=== PATIENT | male | born 1935 | race Caucasian/White ===

== ENCOUNTER 2017-12-17 20:06 | Inpatient (IN) | payer MEDICARE ==
[2017-12-17] MEDS ORDERED: MORPHINE SULFATE 2 MG/ML SYRINGE IV STA (21:23)
[2017-12-17] MEDS ORDERED: SODIUM CHLORIDE 0.9% 500 ML IV STA (21:23)
--- NOTE | 2017-12-17 21:57 | ED ---
General Adult HPI - General Chief complaint: Recheck/Abnormal Lab/Rx Stated complaint: Weakness Time Seen by Provider: 12/17/17 21:13 Source: patient, EMS, RN notes reviewed, old records reviewed Mode of arrival: EMS Limitations: altered mental status - History of Present Illness Initial comments: 82-year-old presents for evaluation of diaphoresis. Patient reported that his friend thought he was more confused than usual and may be developing some dementia. Patient states that he did have some burning abdominal pain. Denies vomiting states he's had some nausea. No chest pain or shortness of breath. Patient appears quite anxious on initial evaluation. States his symptoms began while he was at rest. No exertional component to his diaphoresis or burning abdominal pain. Denies any focal weakness or numbness. Denies headache. Denies fever or chills. Patient is alert and oriented 3, however exact details about the history are difficult to obtain. - Related Data Home Medications Medication Instructions Recorded Confirmed Aspirin EC [Ecotrin] 325 mg PO DAILY 07/14/14 07/18/14 Atenolol [Tenormin] 50 mg PO DAILY 07/14/14 07/18/14 Nitroglycerin Sl Tabs [Nitrostat] 0.4 mg SUBLINGUAL Q5M PRN 07/14/14 07/18/14 Omeprazole [PriLOSEC] 20 mg PO HS 07/14/14 07/18/14 Previous Rx's Medication Instructions Recorded Atenolol [Tenormin] 50 mg PO DAILY tab 07/19/14 Atorvastatin [Lipitor] 40 mg PO DAILY #30 tab 07/19/14 Clopidogrel [Plavix] 75 mg PO DAILY #30 tab 07/19/14 Famotidine [Pepcid] 20 mg PO HS PRN #0 tab 07/19/14 Isosorbide Mononitrate ER [Imdur] 60 mg PO DAILY #30 tab.er.24h 07/19/14 Nitroglycerin Sl Tabs [Nitrostat] 0.4 mg SUBLINGUAL Q5M PRN #25 tab 07/19/14 Periostat 20 mg PO BID 07/19/14 Allergies Allergy/AdvReac Type Severity Reaction Status Date / Time No Known Allergies Allergy Verified 07/18/14 15:26 Review of Systems ROS Statement: Those systems with pertinent positive or pertinent negative responses have been documented in the HPI. ROS Other: All systems not noted in ROS Statement are negative. Past Medical History Past Medical History: Coronary Artery Disease (CAD), Chest Pain / Angina, Hyperlipidemia History of Any Multi-Drug Resistant Organisms: None Reported Past Surgical History: Coronary Bypass/CABG, Heart Catheterization, Tonsillectomy Additional Past Surgical History / Comment(s): CABG-QUADRUPLE HEART CATHRT CATARACT WITH LENS IMPLANT 2007 (TORIC-ACRYSOF) (2 stents placed last year?) Past Anesthesia/Blood Transfusion Reactions: No Reported Reaction Past Psychological History: Anxiety Smoking Status: Never smoker Past Alcohol Use History: None Reported Past Drug Use History: None Reported - Past Family History Brother(s) Family Medical History: Cancer Additional Family Medical History / Comment(s): THROAT CA General Exam Limitations: altered mental status General appearance: alert, in no apparent distress Head exam: Present: atraumatic, normocephalic Eye exam: Present: normal appearance, PERRL ENT exam: Present: mucous membranes dry Neck exam: Present: normal inspection. Absent: tenderness, meningismus Respiratory exam: Present: normal lung sounds bilaterally, respiratory distress Cardiovascular Exam: Present: regular rate, normal rhythm GI/Abdominal exam: Present: soft. Absent: distended, tenderness, guarding, rebound Extremities exam: Present: normal inspection, normal capillary refill. Absent: pedal edema Back exam: Present: normal inspection, full ROM Neurological exam: Present: alert, oriented X3. Absent: motor sensory deficit Psychiatric exam: Present: agitated, anxious Skin exam: Present: intact, normal color, diaphoretic. Absent: cyanosis Course Vital Signs 12/17/17 12/17/17 12/17/17 20:20 22:38 23:55 Temperature 97.8 F Pulse Rate 81 75 82 Respiratory 18 18 17 Rate Blood Pressure 177/81 199/91 190/86 O2 Sat by Pulse 96 96 97 Oximetry 12/18/17 01:31 Temperature 97.7 F Pulse Rate 83 Respiratory 18 Rate Blood Pressure 184/82 O2 Sat by Pulse 96 Oximetry EKG Findings - EKG Comments: EKG Findings:: EKG: Normal sinus rhythm, T-wave inversion in precordial leads, no ST segment elevation or depression, rate of 78, MN interval 132, QRS duration 80, QTC 458 Medical Decision Making - Medical Decision Making 82-year-old male presenting with abdominal pain, confusion. Patient is found to have distended bladder on CT, this is consistent with his presentation. He also has a 3.1 cm abdominal aortic aneurysm. Additional workup is negative. Laboratory studies unremarkable. Urinary catheter is placed, on reevaluation, patient is asymptomatic, feeling much better. He is alert and oriented 3. He is eager for discharge. - Lab Data Result diagrams: 12/17/17 21:44 12/17/17 21:44 Lab Results 12/17/17 12/17/17 12/17/17 Range/Units 21:44 21:44 21:44 WBC 10.1 (3.8-10.6) k/uL RBC 5.48 (4.30-5.90) m/uL Hgb 15.5 (13.0-17.5) gm/dL Hct 45.6 (39.0-53.0) % MCV 83.3 (80.0-100.0) fL MCH 28.3 (25.0-35.0) pg MCHC 34.0 (31.0-37.0) g/dL RDW 14.4 (11.5-15.5) % Plt Count 155 (150-450) k/uL Neutrophils % 78 % Lymphocytes % 12 % Monocytes % 8 % Eosinophils % 1 % Basophils % 0 % Neutrophils # 7.8 H (1.3-7.7) k/uL Lymphocytes # 1.2 (1.0-4.8) k/uL Monocytes # 0.8 (0-1.0) k/uL Eosinophils # 0.1 (0-0.7) k/uL Basophils # 0.0 (0-0.2) k/uL PT (9.0-12.0) sec INR (<1.2) APTT (22.0-30.0) sec Sodium 136 L (137-145) mmol/L Potassium 3.6 (3.5-5.1) mmol/L Chloride 105 (98-107) mmol/L Carbon Dioxide 20 L (22-30) mmol/L Anion Gap 11 mmol/L BUN 22 H (9-20) mg/dL Creatinine 0.90 (0.66-1.25) mg/dL Est GFR (CKD-EPI)AfAm >90 (>60 ml/min/1.73 sqM) Est GFR (CKD-EPI)NonAf 79 (>60 ml/min/1.73 sqM) Glucose 121 H (74-99) mg/dL Plasma Lactic Acid Irineo 1.9 (0.7-2.0) mmol/L Calcium 9.0 (8.4-10.2) mg/dL Total Bilirubin 0.7 (0.2-1.3) mg/dL AST 25 (17-59) U/L ALT 29 (21-72) U/L Alkaline Phosphatase 67 (38-126) U/L Troponin I (0.000-0.034) ng/mL NT-Pro-B Natriuret Pep pg/mL Total Protein 6.5 (6.3-8.2) g/dL Albumin 3.9 (3.5-5.0) g/dL Amylase <30 L (30-110) U/L Lipase 53 (23-300) U/L Urine Color Urine Appearance (Clear) Urine pH (5.0-8.0) Ur Specific [place] (1.001-1.035) Urine Protein (Negative) Urine Glucose (UA) (Negative) Urine Ketones (Negative) Urine Blood (Negative) Urine Nitrite (Negative) Urine Bilirubin (Negative) Urine Urobilinogen (<2.0) mg/dL Ur Leukocyte Esterase (Negative) Urine WBC (0-5) /hpf Ur Squamous Epith Cells (0-4) /hpf Urine Bacteria (None) /hpf Urine Mucus (None) /hpf 12/17/17 12/17/17 12/17/17 Range/Units 21:44 21:44 21:44 WBC (3.8-10.6) k/uL RBC (4.30-5.90) m/uL Hgb (13.0-17.5) gm/dL Hct (39.0-53.0) % MCV (80.0-100.0) fL MCH (25.0-35.0) pg MCHC (31.0-37.0) g/dL RDW (11.5-15.5) % Plt Count (150-450) k/uL Neutrophils % % Lymphocytes % % Monocytes % % Eosinophils % % Basophils % % Neutrophils # (1.3-7.7) k/uL Lymphocytes # (1.0-4.8) k/uL Monocytes # (0-1.0) k/uL Eosinophils # (0-0.7) k/uL Basophils # (0-0.2) k/uL PT 10.9 (9.0-12.0) sec INR 1.1 (<1.2) APTT 27.1 (22.0-30.0) sec Sodium (137-145) mmol/L Potassium (3.5-5.1) mmol/L Chloride (98-107) mmol/L Carbon Dioxide (22-30) mmol/L Anion Gap mmol/L BUN (9-20) mg/dL Creatinine (0.66-1.25) mg/dL Est GFR (CKD-EPI)AfAm (>60 ml/min/1.73 sqM) Est GFR (CKD-EPI)NonAf (>60 ml/min/1.73 sqM) Glucose (74-99) mg/dL Plasma Lactic Acid Irineo (0.7-2.0) mmol/L Calcium (8.4-10.2) mg/dL Total Bilirubin (0.2-1.3) mg/dL AST (17-59) U/L ALT (21-72) U/L Alkaline Phosphatase (38-126) U/L Troponin I <0.012 (0.000-0.034) ng/mL NT-Pro-B Natriuret Pep 653 pg/mL Total Protein (6.3-8.2) g/dL Albumin (3.5-5.0) g/dL Amylase (30-110) U/L Lipase (23-300) U/L Urine Color Urine Appearance (Clear) Urine pH (5.0-8.0) Ur Specific [place] (1.001-1.035) Urine Protein (Negative) Urine Glucose (UA) (Negative) Urine Ketones (Negative) Urine Blood (Negative) Urine Nitrite (Negative) Urine Bilirubin (Negative) Urine Urobilinogen (<2.0) mg/dL Ur Leukocyte Esterase (Negative) Urine WBC (0-5) /hpf Ur Squamous Epith Cells (0-4) /hpf Urine Bacteria (None) /hpf Urine Mucus (None) /hpf 12/17/17 Range/Units 22:00 WBC (3.8-10.6) k/uL RBC (4.30-5.90) m/uL Hgb (13.0-17.5) gm/dL Hct (39.0-53.0) % MCV (80.0-100.0) fL MCH (25.0-35.0) pg MCHC (31.0-37.0) g/dL RDW (11.5-15.5) % Plt Count (150-450) k/uL Neutrophils % % Lymphocytes % % Monocytes % % Eosinophils % % Basophils % % Neutrophils # (1.3-7.7) k/uL Lymphocytes # (1.0-4.8) k/uL Monocytes # (0-1.0) k/uL Eosinophils # (0-0.7) k/uL Basophils # (0-0.2) k/uL PT (9.0-12.0) sec INR (<1.2) APTT (22.0-30.0) sec Sodium (137-145) mmol/L Potassium (3.5-5.1) mmol/L Chloride (98-107) mmol/L Carbon Dioxide (22-30) mmol/L Anion Gap mmol/L BUN (9-20) mg/dL Creatinine (0.66-1.25) mg/dL Est GFR (CKD-EPI)AfAm (>60 ml/min/1.73 sqM) Est GFR (CKD-EPI)NonAf (>60 ml/min/1.73 sqM) Glucose (74-99) mg/dL Plasma Lactic Acid Irineo (0.7-2.0) mmol/L Calcium (8.4-10.2) mg/dL Total Bilirubin (0.2-1.3) mg/dL AST (17-59) U/L ALT (21-72) U/L Alkaline Phosphatase (38-126) U/L Troponin I (0.000-0.034) ng/mL NT-Pro-B Natriuret Pep pg/mL Total Protein (6.3-8.2) g/dL Albumin (3.5-5.0) g/dL Amylase (30-110) U/L Lipase (23-300) U/L Urine Color Light Yellow Urine Appearance Clear (Clear) Urine pH 7.5 (5.0-8.0) Ur Specific [place] 1.010 (1.001-1.035) Urine Protein Negative (Negative) Urine Glucose (UA) Negative (Negative) Urine Ketones Negative (Negative) Urine Blood Negative (Negative) Urine Nitrite Negative (Negative) Urine Bilirubin Negative (Negative) Urine Urobilinogen <2.0 (<2.0) mg/dL Ur Leukocyte Esterase Small H (Negative) Urine WBC 11 H (0-5) /hpf Ur Squamous Epith Cells <1 (0-4) /hpf Urine Bacteria Occasional H (None) /hpf Urine Mucus Rare H (None) /hpf Disposition Clinical Impression: Urinary retention Disposition: HOME SELF-CARE Condition: Fair Instructions: Urinary Retention in Men (ED) Is patient prescribed a controlled substance at d/c from ED?: No Referrals: Vicente Loomis MD [Primary Care Provider] - 1-2 days Daniel Dillon MD [STAFF PHYSICIAN] - 1-2 days Time of Disposition: 01:35
[2017-12-17 22:16] LABS: Appearance,Urine Clear (Clear); Bacteria,Urine Occasional /hpf; Bilirubin,Urine Negative (Negative); Blood,Urine Negative (Negative); Color,Urine Light Yellow; Glucose,Urine (UA) Negative (Negative); Ketones,Urine Negative (Negative); Leukocyte Esterase,Urine Small (Negative); Mucus,Urine Rare /hpf; Nitrite,Urine Negative (Negative); PH, Urine 7.5 (5.0-8.0); Protein,Urine Negative (Negative); Squamous Epithelial Cell,Urine <1 /hpf (0-4); Urobilinogen,Urine <2.0 mg/dL (<2.0); WBC,Urine 11 /hpf (0-5)
[2017-12-17 22:19] LABS: Basophils % (A) 0 %; Eosinophils # (A) 0.1 k/uL (0-0.7); Eosinophils % (A) 1 %; HCT 45.6 % (39.0-53.0); HGB 15.5 gm/dL (13.0-17.5); Lymphocytes # (A) 1.2 k/uL (1.0-4.8); Lymphocytes % (A) 12 %; MCH 28.3 pg (25.0-35.0); MCV 83.3 fL (80.0-100.0); Mean Platelet Volume 7.8; Monocytes # (A) 0.8 k/uL (0-1.0); Monocytes % (A) 8 %; Neutrophils # (A) 7.8 k/uL (1.3-7.7); Neutrophils % (A) 78 %; Platelet Count 155 k/uL (150-450); RBC 5.48 m/uL (4.30-5.90); RDW 14.4 % (11.5-15.5); WBC 10.1 k/uL (3.8-10.6)
[2017-12-17 22:26] LABS: INR 1.1 (<1.2); Partial Thromboplastin Time 27.1 sec (22.0-30.0); Prothrombin Time 10.9 sec (9.0-12.0)
[2017-12-17 22:27] LABS: ALT 29 U/L (21-72); AST 25 U/L (17-59); Albumin 3.9 g/dL (3.5-5.0); Alkaline Phosphatase 67 U/L (38-126); Amylase <30 U/L (30-110); Anion Gap 11 mmol/L; Blood Urea Nitrogen 22 mg/dL (9-20); Carbon Dioxide 20 mmol/L (22-30); Chloride 105 mmol/L (98-107); Glucose 121 mg/dL (74-99); Lipase 53 U/L (23-300); Potassium 3.6 mmol/L (3.5-5.1); Sodium 136 mmol/L (137-145); Total Bilirubin 0.7 mg/dL (0.2-1.3); Total Protein 6.5 g/dL (6.3-8.2)
--- NOTE | 2017-12-17 23:15 | XR ---
EXAMINATION TYPE: XR chest 2V DATE OF EXAM: 12/17/2017 COMPARISON: 07/06/2014 HISTORY: Altered mental status. Chest pain. TECHNIQUE: Frontal and lateral views of the chest are obtained. FINDINGS: There is coarse pulmonary interstitial density. There are sternal wires. There is no defin ite pleural effusion. Bony thorax is intact. Thoracic aorta shows mild atheromatous change. IMPRESSION: New pulmonary interstitial infiltrates compared to last exam. No pleural fluid is seen. This probably relates to pulmonary fibrosis. Acute heart failure is possible.
--- NOTE | 2017-12-17 23:16 | XR ---
EXAMINATION TYPE: XR KUB DATE OF EXAM: 12/17/2017 COMPARISON: NONE HISTORY: Altered mental status TECHNIQUE: 2 views FINDINGS: There is no sign of intestinal obstruction or pneumoperitoneum. Fecal pattern is normal. Th ere are no pathologic calcifications over the kidneys. IMPRESSION: Nonacute abdomen.
--- NOTE | 2017-12-17 23:46 | CT ---
EXAMINATION TYPE: CT brain wo con DATE OF EXAM: 12/17/2017 COMPARISON: 06/26/2011 HISTORY: Altered mental status. CT DLP: 2003 mGycm Automated exposure control for dose reduction was used. FINDINGS: There is cerebral cortical atrophy. There is no mass effect nor midline shift. There is no sign of in tracranial hemorrhage. There is some mild hypodensity in the white matter insula of temporal lobes. T here is mild hypodensity around the frontal horns of the lateral ventricles. This is more on the left side. Calvarium is intact. IMPRESSION: CEREBRAL ATROPHY AND CHRONIC PERIVENTRICULAR SMALL VESSEL ISCHEMIA. NO CHANGE COMPARED TO OLD EXAM.
--- NOTE | 2017-12-17 23:51 | CT ---
EXAMINATION TYPE: CT abdomen pelvis w con DATE OF EXAM: 12/17/2017 COMPARISON: HISTORY: Burning abdominal pain and nausea. Frequent urination. CT DLP: 1773 mGycm Automated exposure control for dose reduction was used. TECHNIQUE: Helical acquisition of images was performed from the lung bases through the pelvis. CONTRAST: Performed without Oral Contrast and with IV Contrast, patient injected with 100 mL of Isovue 300. FINDINGS: There is mild subsegmental atelectasis at the right posterior lung base. There is no pleural effusion . There is a large hiatal hernia. Heart is enlarged. Liver shows no focal defect. Gallbladder appears normal. Bile ducts are not dilated. Spleen and pancreas appear normal. There is no adrenal mass. There is 1 cm cortical cyst on the upper pole right kidney. There are anter ior and lateral renal bilateral cortical cysts that measure up to 3.5 cm. There is no hydronephrosis. Ureters are not dilated. Abdominal aorta is atheromatous. Abdominal aorta measures up to 3.1 cm. The re is no retroperitoneal adenopathy. There is no ascites. There is no sign of free air. I see no inte stinal wall thickening. There are no dilated loops. Bladder distends smoothly. There is no evidence o f pelvic mass. Appendix is not definitely seen. There is no sign of appendicitis. There is a few mill imeter anterior subluxation of L4 in relation L5. There is a few millimeter retrolisthesis of L3 rela te to L4. The posterior elements are intact. There is no compression fracture. IMPRESSION: ATHEROSCLEROTIC VASCULAR DISEASE. 3.1 CM MILD ANEURYSM OF THE LOWER ABDOMINAL AORTA. RENAL CORTICAL CYSTS. MILD FIBROSIS AND SUBSEGMENTAL ATELECTASIS AT THE RIGHT LUNG BASE. HIATAL HERNIA. LARGE URINARY BLADDER COULD RELATE TO BLADDER OUTLET OBSTRUCTION. MILD DEGENERATIVE SUBLUXATION IN THE LUMBAR SPINE ABOVE.
[2017-12-18] MEDS: ATENOLOL 50 MG TAB PO SCH (06:47)
[2017-12-18] MEDS: ISOSORBIDE MONONITRATE ER 60 MG TAB.ER.24H PO SCH (06:47)
[2017-12-18] MEDS ORDERED: LORazepam 1 MG TAB PO STA (08:06)
[2017-12-18] MEDS ORDERED: TAMSULOSIN 0.4 MG CAP.ER.24H PO STA (08:06)
[2017-12-18] MEDS: CLOPIDOGREL 75 MG TAB PO SCH (08:44)
--- NOTE | 2017-12-18 14:16 | ED ---
Medical Decision Making - Medical Decision Making Patient was situationally confused. Patient did not know why he was here how he got here and he stated he can't remember the last 2 days. I spoke with Dr. Loomis on a number of occasions and he agreed to admit the patient 23 hour with the help of social work to try to get the patient into a snf. - Lab Data Result diagrams: 12/17/17 21:44 12/17/17 21:44 Lab Results 12/17/17 12/17/17 12/17/17 Range/Units 21:44 21:44 21:44 WBC 10.1 (3.8-10.6) k/uL RBC 5.48 (4.30-5.90) m/uL Hgb 15.5 (13.0-17.5) gm/dL Hct 45.6 (39.0-53.0) % MCV 83.3 (80.0-100.0) fL MCH 28.3 (25.0-35.0) pg MCHC 34.0 (31.0-37.0) g/dL RDW 14.4 (11.5-15.5) % Plt Count 155 (150-450) k/uL Neutrophils % 78 % Lymphocytes % 12 % Monocytes % 8 % Eosinophils % 1 % Basophils % 0 % Neutrophils # 7.8 H (1.3-7.7) k/uL Lymphocytes # 1.2 (1.0-4.8) k/uL Monocytes # 0.8 (0-1.0) k/uL Eosinophils # 0.1 (0-0.7) k/uL Basophils # 0.0 (0-0.2) k/uL PT (9.0-12.0) sec INR (<1.2) APTT (22.0-30.0) sec Sodium 136 L (137-145) mmol/L Potassium 3.6 (3.5-5.1) mmol/L Chloride 105 (98-107) mmol/L Carbon Dioxide 20 L (22-30) mmol/L Anion Gap 11 mmol/L BUN 22 H (9-20) mg/dL Creatinine 0.90 (0.66-1.25) mg/dL Est GFR (CKD-EPI)AfAm >90 (>60 ml/min/1.73 sqM) Est GFR (CKD-EPI)NonAf 79 (>60 ml/min/1.73 sqM) Glucose 121 H (74-99) mg/dL Plasma Lactic Acid Irineo 1.9 (0.7-2.0) mmol/L Calcium 9.0 (8.4-10.2) mg/dL Total Bilirubin 0.7 (0.2-1.3) mg/dL AST 25 (17-59) U/L ALT 29 (21-72) U/L Alkaline Phosphatase 67 (38-126) U/L Troponin I (0.000-0.034) ng/mL NT-Pro-B Natriuret Pep pg/mL Total Protein 6.5 (6.3-8.2) g/dL Albumin 3.9 (3.5-5.0) g/dL Amylase <30 L (30-110) U/L Lipase 53 (23-300) U/L Urine Color Urine Appearance (Clear) Urine pH (5.0-8.0) Ur Specific [place] (1.001-1.035) Urine Protein (Negative) Urine Glucose (UA) (Negative) Urine Ketones (Negative) Urine Blood (Negative) Urine Nitrite (Negative) Urine Bilirubin (Negative) Urine Urobilinogen (<2.0) mg/dL Ur Leukocyte Esterase (Negative) Urine WBC (0-5) /hpf Ur Squamous Epith Cells (0-4) /hpf Urine Bacteria (None) /hpf Urine Mucus (None) /hpf 12/17/17 12/17/17 12/17/17 Range/Units 21:44 21:44 21:44 WBC (3.8-10.6) k/uL RBC (4.30-5.90) m/uL Hgb (13.0-17.5) gm/dL Hct (39.0-53.0) % MCV (80.0-100.0) fL MCH (25.0-35.0) pg MCHC (31.0-37.0) g/dL RDW (11.5-15.5) % Plt Count (150-450) k/uL Neutrophils % % Lymphocytes % % Monocytes % % Eosinophils % % Basophils % % Neutrophils # (1.3-7.7) k/uL Lymphocytes # (1.0-4.8) k/uL Monocytes # (0-1.0) k/uL Eosinophils # (0-0.7) k/uL Basophils # (0-0.2) k/uL PT 10.9 (9.0-12.0) sec INR 1.1 (<1.2) APTT 27.1 (22.0-30.0) sec Sodium (137-145) mmol/L Potassium (3.5-5.1) mmol/L Chloride (98-107) mmol/L Carbon Dioxide (22-30) mmol/L Anion Gap mmol/L BUN (9-20) mg/dL Creatinine (0.66-1.25) mg/dL Est GFR (CKD-EPI)AfAm (>60 ml/min/1.73 sqM) Est GFR (CKD-EPI)NonAf (>60 ml/min/1.73 sqM) Glucose (74-99) mg/dL Plasma Lactic Acid Irineo (0.7-2.0) mmol/L Calcium (8.4-10.2) mg/dL Total Bilirubin (0.2-1.3) mg/dL AST (17-59) U/L ALT (21-72) U/L Alkaline Phosphatase (38-126) U/L Troponin I <0.012 (0.000-0.034) ng/mL NT-Pro-B Natriuret Pep 653 pg/mL Total Protein (6.3-8.2) g/dL Albumin (3.5-5.0) g/dL Amylase (30-110) U/L Lipase (23-300) U/L Urine Color Urine Appearance (Clear) Urine pH (5.0-8.0) Ur Specific [place] (1.001-1.035) Urine Protein (Negative) Urine Glucose (UA) (Negative) Urine Ketones (Negative) Urine Blood (Negative) Urine Nitrite (Negative) Urine Bilirubin (Negative) Urine Urobilinogen (<2.0) mg/dL Ur Leukocyte Esterase (Negative) Urine WBC (0-5) /hpf Ur Squamous Epith Cells (0-4) /hpf Urine Bacteria (None) /hpf Urine Mucus (None) /hpf 12/17/17 Range/Units 22:00 WBC (3.8-10.6) k/uL RBC (4.30-5.90) m/uL Hgb (13.0-17.5) gm/dL Hct (39.0-53.0) % MCV (80.0-100.0) fL MCH (25.0-35.0) pg MCHC (31.0-37.0) g/dL RDW (11.5-15.5) % Plt Count (150-450) k/uL Neutrophils % % Lymphocytes % % Monocytes % % Eosinophils % % Basophils % % Neutrophils # (1.3-7.7) k/uL Lymphocytes # (1.0-4.8) k/uL Monocytes # (0-1.0) k/uL Eosinophils # (0-0.7) k/uL Basophils # (0-0.2) k/uL PT (9.0-12.0) sec INR (<1.2) APTT (22.0-30.0) sec Sodium (137-145) mmol/L Potassium (3.5-5.1) mmol/L Chloride (98-107) mmol/L Carbon Dioxide (22-30) mmol/L Anion Gap mmol/L BUN (9-20) mg/dL Creatinine (0.66-1.25) mg/dL Est GFR (CKD-EPI)AfAm (>60 ml/min/1.73 sqM) Est GFR (CKD-EPI)NonAf (>60 ml/min/1.73 sqM) Glucose (74-99) mg/dL Plasma Lactic Acid Irineo (0.7-2.0) mmol/L Calcium (8.4-10.2) mg/dL Total Bilirubin (0.2-1.3) mg/dL AST (17-59) U/L ALT (21-72) U/L Alkaline Phosphatase (38-126) U/L Troponin I (0.000-0.034) ng/mL NT-Pro-B Natriuret Pep pg/mL Total Protein (6.3-8.2) g/dL Albumin (3.5-5.0) g/dL Amylase (30-110) U/L Lipase (23-300) U/L Urine Color Light Yellow Urine Appearance Clear (Clear) Urine pH 7.5 (5.0-8.0) Ur Specific [place] 1.010 (1.001-1.035) Urine Protein Negative (Negative) Urine Glucose (UA) Negative (Negative) Urine Ketones Negative (Negative) Urine Blood Negative (Negative) Urine Nitrite Negative (Negative) Urine Bilirubin Negative (Negative) Urine Urobilinogen <2.0 (<2.0) mg/dL Ur Leukocyte Esterase Small H (Negative) Urine WBC 11 H (0-5) /hpf Ur Squamous Epith Cells <1 (0-4) /hpf Urine Bacteria Occasional H (None) /hpf Urine Mucus Rare H (None) /hpf Disposition Clinical Impression: Urinary retention, Altered mental status Disposition: ADMITTED IP TO THIS HOSP Condition: Fair Instructions: Urinary Retention in Men (ED) Referrals: Vicente Loomis MD [Primary Care Provider] - 1-2 days Daniel Dillon MD [STAFF PHYSICIAN] - 1-2 days Time of Disposition: 14:16
[2017-12-18] MEDS ORDERED: SODIUM CHLORIDE 0.9% 1,000 ML IV ONE (14:17)
[2017-12-18] MEDS: ATORVASTATIN 40 MG TAB PO SCH (16:32)
[2017-12-18] MEDS: LORazepam 1 MG TAB PO PRN (19:28)
[2017-12-18] MEDS: POTASSIUM CHLORIDE ER 20 MEQ TAB.ER PO SCH (19:29)
--- NOTE | 2017-12-18 22:15 | HP ---
HISTORY AND PHYSICAL ATTENDING PHYSICIAN: Dr. Kathryn Loomis. CHIEF COMPLAINT: Sweating. HISTORY OF PRESENT ILLNESS: This 83-year-old gentleman presents to the emergency room by ambulance in the middle of the night because he was sweating. The patient is evaluated in the emergency room with a CT scan of the brain, chest x-ray, KUB and then CT scan of the abdomen and pelvis. The patient was noted to have a distended abdomen. Patient had distended bladder. Cuellar catheter was placed and patient had 1000 mL of urine. The patient has a history of chronic anxiety, depression. The patient recently had been placed on Lexapro about a month now. The patient has also takes Ativan 1 mg in the morning and half at bedtime. He lives by himself. The patient had no other findings on clinical evaluation. The patient at times appeared mildly confused. The patient is oriented x3, though. The patient's nurse in the emergency room did not feel comfortable sending the patient home, as he lives by himself. Hospital bilingual social worker was involved to see if there were any arrangements that could be made for the patient to help with outpatient. The patient lives by himself. He has no family here. He has a brother apparently in [place]. The patient's neighbor who came by to the emergency room said the patient seems to be more confused lately. He initially used to call the neighbor occasionally for some help. Now he called him practically 10, 12 times a day. PAST MEDICAL HISTORY: Significant for coronary artery disease. The patient has had a previous CABG and stent placement, last one being in 2014. The patient had myocardial infarction. The patient has otherwise has history of hypertension, chronic anxiety, depression. No history of any lung disease, liver disease, kidney disease, ulcers, TB, hepatitis. No history of any rheumatic fever, myocardial infarction or CVA. The patient does have a previous history of BPH. He follows with the urologist. The patient was placed in on Ditropan for urinary frequency. This has been for a while. PAST SURGICAL HISTORY: Significant for CABG. FAMILY MEDICAL HISTORY: Father at the age of 60 of acute myocardial infarction. Mother at age of 79, pneumonia. The patient had a brother and 65 , history of carcinoma of the larynx, a brother, 78, with a history of diabetes mellitus, hypertension. The patient has no children. MEDICATIONS: At present include: 1. Ditropan XL 15 mg daily. 2. Metoprolol succinate 50 mg daily. 3. Ativan 1 mg in the morning, 0.5 mg in the evening. 4. Prilosec 20 mg daily. 5. Nitrostat sublingual p.r.n. 6. Lipitor 40 mg daily. 7. Aspirin 325 mg daily. SOCIAL HISTORY: Patient is single, never , lives by himself. REVIEW OF SYSTEMS: NEURO: Denies any headaches, dizziness. No double vision, blurred vision. No symptoms of TIA, syncope, seizures. PSYCH: Anxiety, history of depression, mild confusion, intermittent. CARDIAC: No chest pain, angina, palpitation. RESPIRATORY: No shortness of breath, cough, hemoptysis. GI: No nausea, vomiting, abdominal pain, diarrhea. : No symptoms of dysuria, hematuria. The patient apparently has some urinary retention with overflow. The patient had a Cuellar catheter placed in the emergency room without difficulty. EXTREMITIES: No pain. Mild chronic edema. CONSTITUTIONAL: No fever, chills. PHYSICAL EXAMINATION: Pleasant gentleman, at present in no distress. Vital signs revealed temperature recorded earlier was 97.7, pulse 83, respirations 18, blood pressure was 211/99. HEENT: Normocephalic. Neck: No JVD. Decreased range of motion of the neck. Pupils reactive. Nostrils are clear. Oral cavity is moist. Ears reveal no drainage. NECK: No JVD, carotid bruits or thyromegaly. CHEST: Clear to auscultation, percussion. CARDIAC: Normal S1, S2 with no gallop. Systolic murmur 2/6 left sternal border. ABDOMEN: Soft. Bowel sounds present. Extremities reveal trace edema. Neurologically awake, alert, oriented to place, person and time. Moves both upper and lower extremities adequately. The patient does exhibit mild confusion at times. He is more anxious. LABORATORY ASSESSMENT: Potassium of 3.6, sodium of 136, BUN of 22, creatinine 0.9. Negative troponin. Negative BNP. Urinalysis: 11 WBCs, occasional bacteria. CBC is normal. ASSESSMENT: 1. Mild cognitive impairment. 2. Acute on chronic urinary retention. 3. History of coronary artery disease. PLAN: The patient admitted for further observation. The patient is a placement issue and will ask the social workers to figure that out. MMODL / IJN: [id number] /
[2017-12-19] MEDS: ISOSORBIDE MONONITRATE ER 60 MG TAB.ER.24H PO SCH (08:16)
[2017-12-19] MEDS: POTASSIUM CHLORIDE ER 20 MEQ TAB.ER PO SCH ×2 (08:16→20:34)
[2017-12-19] MEDS: PANTOPRAZOLE 40 MG TABLET PO SCH (08:16)
[2017-12-19] MEDS: ATORVASTATIN 40 MG TAB PO SCH (08:17)
[2017-12-19] MEDS: METOPROLOL SUCCINATE (ER) 50 MG TAB.ER.24H PO SCH (08:17)
[2017-12-19] MEDS: CLOPIDOGREL 75 MG TAB PO SCH (08:17)
[2017-12-19] MEDS: ATENOLOL 50 MG TAB PO SCH (08:17)
[2017-12-19] MEDS: ESCITALOPRAM 10 MG TAB PO SCH (08:17)
[2017-12-19] MEDS: LORazepam 1 MG TAB PO PRN ×2 (08:21→20:34)
[2017-12-19 09:52] LABS: Anion Gap 6 mmol/L; Blood Urea Nitrogen 14 mg/dL (9-20); Calcium 8.3 mg/dL (8.4-10.2); Carbon Dioxide 25 mmol/L (22-30); Chloride 107 mmol/L (98-107); Glucose 142 mg/dL (74-99); Sodium 138 mmol/L (137-145)
[2017-12-19 09:58] LABS: Potassium 3.8 mmol/L (3.5-5.1)
[2017-12-19 10:02] VITALS: BMI 29.2
--- NOTE | 2017-12-19 18:46 | PN ---
PROGRESS NOTE CHIEF COMPLAINT: Re-evaluation. HISTORY OF PRESENT ILLNESS: This 82-year-old gentleman came to the emergency room yesterday because of not feeling well, and his neighbor had suggested that he might be having dementia. The patient also complained in the emergency room that he was having diaphoresis. On evaluation in the emergency room, the conclusion was that the patient had urinary retention; no other findings were noted. The patient, however, was somewhat unsafe to stay by himself at home; unsteady and weak. The patient was admitted to the hospital for observation in view of this. He is actually upset this morning that none of his friends or anybody has been informed. After discussion with him that we have no contact numbers for any of his friends or family, he settled down, the patient realizing that it was true that we did not have any contact numbers. The patient did call his brother. The patient himself has no children. The patient's brother lives in [place], and I did talk to him and explained to him what the conditions here were; that it was more of a social problem; patient is not able to live by himself. The social workers are trying to work things out. Meanwhile, the patient continues with Cuellar catheter care. REVIEW OF SYSTEMS: NEURO: Denies any headaches, dizziness. PSYCH: Chronic anxiety and depression. CARDIAC: Denies chest pain, angina, palpitations. RESPIRATORY: Denies shortness of breath, cough, hemoptysis. GI: No nausea, vomiting, abdominal pain, diarrhea. : Has an IDC. EXTREMITIES: No pain. CONSTITUTIONAL: No fever, chills. PHYSICAL EXAMINATION: Elderly gentleman, 82 years of age, at present in no distress. Vital signs reveal temperature 99.3, pulse 90, respirations 14, blood pressure 177/84, pulse ox 93% on room air. HEENT: Normocephalic. NECK: No JVD. CHEST: Clear to auscultation and percussion. CARDIAC: Normal S1, S2 with no gallops, murmurs. ABDOMEN: Soft. Bowel sounds normal. No organomegaly. No abdominal bruits. Extremities reveal no edema. NEUROLOGIC: Awake, alert, oriented to place, person and time. Intermittent confusion with someone inappropriate statements. Moves both upper and lower extremities adequately. Neurologically otherwise intact. LABORATORY ASSESSMENT: Repeat electrolytes which are normal. BUN and creatinine were normal. Urine culture is in progress. ASSESSMENT: 1. Generalized weakness and debility. 2. Elevated blood pressure. 3. History of coronary artery disease. 4. Urinary retention; suspect chronic. PLAN: The patient at present is stable. We are working on placement on therapy. It is possible the patient may require an institutionalized setting, as he is not able at present to take care of his needs. MMODL / IJN: [id number] /
[2017-12-19] MEDS: ACETAMINOPHEN TAB 325 MG TAB PO PRN (20:34)
[2017-12-20] MEDS: LORazepam 1 MG TAB PO PRN ×2 (07:35→21:49)
[2017-12-20] MEDS: PANTOPRAZOLE 40 MG TABLET PO SCH (07:36)
[2017-12-20] MEDS: ESCITALOPRAM 10 MG TAB PO SCH (07:36)
[2017-12-20] MEDS: METOPROLOL SUCCINATE (ER) 50 MG TAB.ER.24H PO SCH (07:36)
[2017-12-20] MEDS: ISOSORBIDE MONONITRATE ER 60 MG TAB.ER.24H PO SCH (07:36)
[2017-12-20] MEDS: CLOPIDOGREL 75 MG TAB PO SCH (07:36)
[2017-12-20] MEDS: ATENOLOL 50 MG TAB PO SCH (07:36)
[2017-12-20] MEDS: POTASSIUM CHLORIDE ER 20 MEQ TAB.ER PO SCH (07:36)
[2017-12-20] MEDS: ATORVASTATIN 40 MG TAB PO SCH (07:36)
[2017-12-20] MEDS: LISINOPRIL 10 MG TAB PO SCH (12:42)
[2017-12-20] MEDS: TAMSULOSIN 0.4 MG CAP.ER.24H PO SCH (17:30)
[2017-12-20] MEDS: ACETAMINOPHEN TAB 325 MG TAB PO PRN (21:49)
--- NOTE | 2017-12-21 00:05 | PN ---
PROGRESS NOTE ATTENDING PHYSICIAN: Dr. Kathryn Loomis. CHIEF COMPLAINT: Re-evaluation. HISTORY OF PRESENT ILLNESS: An 82-year-old gentleman who appears in no distress. He is much calmer and not confused. He was able to sit up in bed and from the bed with minimal assistance, get off the bed. The patient had no dizziness. He ambulated about 70 feet without any shortness of breath and without difficulty with using a walker. The patient still has a Cuellar catheter. The patient lives alone. He is recommended discharge today. He wants to stay in, as he has not been able to make any arrangements for food, etc. He is contacting his friends to see if they can help out, bring food in and then subsequently take him home tomorrow. Patient's condition discussed with the patient. REVIEW OF SYSTEMS: NEURO: Denies any headaches, dizziness. PSYCH: Chronic anxiety, depression, improved. CARDIAC: No chest pain, angina, palpitation. RESPIRATORY: No shortness of breath, cough, hemoptysis. GI: No nausea, vomiting, abdominal pain, diarrhea. : Has IDC with no symptoms. EXTREMITIES: No pain, edema. CONSTITUTIONAL: No fever, chills. PHYSICAL EXAMINATION: Pleasant gentleman in no distress. Vital signs reveal temperature 98.4, pulse 83, respirations 20, blood pressure 161/81, pulse ox 95% on room air. HEENT: Normocephalic. NECK: No JVD. CHEST: Clear to auscultation, percussion. CARDIAC: Normal S1, S2 with no gallops or murmurs. ABDOMEN: Soft. No palpable masses. Bowel sounds normal. No organomegaly. No abdominal bruits. Extremities reveal no edema. Good pulses, both upper lower extremities. Neurologically, awake, alert, oriented x3 with well-coordinated movements. LABORATORY ASSESSMENT: None new. ASSESSMENT: 1. Acute urinary retention. 2. History of benign prostatic hypertrophy. 3. Coronary artery disease, stable. 4. Hypertension with mildly elevated blood pressure. 5. Acute urinary retention. PLAN: The patient is stable, improved. Continue present medical regimen. Plan is for patient to be discharged home. Apparently, no social media marketing manager is available today. The patient has been recommended to make arrangements to stock up foot at home for the next few days until Meals on Wheels can be started. The patient meanwhile will have a continued Cuellar catheter. The IV fluid has been discontinued. The patient be continued on tamsulosin. The patient's prognosis remains guarded. The patient recommended to discontinue the Cuellar catheter on Friday. The patient's prognosis guarded. MMODL / IJN: [id number] /
[2017-12-21] MEDS: PANTOPRAZOLE 40 MG TABLET PO SCH (08:01)
[2017-12-21] MEDS: LORazepam 1 MG TAB PO PRN ×2 (08:01→20:13)
[2017-12-21] MEDS: ATORVASTATIN 40 MG TAB PO SCH (08:01)
[2017-12-21] MEDS: CLOPIDOGREL 75 MG TAB PO SCH (08:01)
[2017-12-21] MEDS: ESCITALOPRAM 10 MG TAB PO SCH (08:01)
[2017-12-21] MEDS: ISOSORBIDE MONONITRATE ER 60 MG TAB.ER.24H PO SCH (08:02)
[2017-12-21] MEDS: LISINOPRIL 10 MG TAB PO SCH (08:02)
[2017-12-21] MEDS: SULFAMETHOX-TMP 800-160MG 1 EACH TAB PO SCH ×2 (12:10→20:13)
[2017-12-21] MEDS: TAMSULOSIN 0.4 MG CAP.ER.24H PO SCH (18:00)
--- NOTE | 2017-12-21 18:54 | P.CN ---
Psychiatric Consult - . Consult date: 12/21/17 Consult:: 12/21/17 18:35 IDENTIFYING DATA: A 82-year-old male patient HPI: Patient admitted to the medical floor [facility] with he states not feeling well at home after having done some yard work. He says that he called 911. Psychiatry was counseled regarding anxiety and depression. He was admitted with acute on chronic urinary retention. He says his mood has been doing okay most of the time he says that he used to see treatment through [facility] social worker aide. He has most recently been on Lexapro which was started he states a couple of months ago. PAST PSYCHIATRIC HISTORY: He was in treatment At social worker aide in the past. He just started Lexapro a couple of months ago as currently on 10 mg daily. He says the Lexapro was used for anxiety he says he had 1 panic attack before. He never had any psychiatric hospitalizations. He is currently on ativan prn. PMH: Coronary artery disease, CA, hypertension, BPH, CABG and stent ALLERGIES: No known ALLERGIES MEDICATIONS: Tylenol when necessary, Lipitor, Plavix, Lexapro, Imdur, Zestril, Ativan when necessary, Protonix, Flomax, Bactrim DS CHEMICAL DEPENDENCY HISTORY: Denies FAMILY PSYCHIATRIC HISTORY: None known at this time FAMILY CHEMICAL DEPENDENCY HISTORY: None known at this time SOCIAL HISTORY: Currently lives by himself in the house. Says he has quite a few friends and is active socially. He was once and . He does not have any children. He used to work in sales. MENTAL STATUS EXAM: He is alert and cooperative with the interview. Speech is fluent, not rapid or pressured. Thought processes are organized. He is hard of hearing. He is oriented to place and month, day of the week. He states the date is the 15th or 16th. He denies any thoughts of harm to self or others. He does not show any agitation. I do not see any evidence of active psychosis. IMPRESSIONS: Unspecified anxiety disorder; rule out unspecified depressive disorder PLAN: Maintain Lexapro as current. He is also on Ativan as needed for anxiety. We'll provide with outpatient follow-up referral sheet for him to reinitiate some outpatient counseling which he seems agreeable to. I do not see any criteria for inpatient psychiatric hospitalization.
--- NOTE | 2017-12-22 00:39 | PN ---
PROGRESS NOTE ATTENDING PHYSICIAN: Dr. Kathryn Loomis CHIEF COMPLAINT: Re-evaluation. HISTORY OF PRESENT ILLNESS: 82-year-old gentleman was admitted to the hospital because he lives alone and he was complaining of weakness and inability to urinate. The patient had no evidence of any sepsis or any significant findings. The patient yesterday was able to get out of the bed by himself with a walker. He walked around safely. Today he says he cannot walk and cannot get out of the bed. The patient says he feels weak. He does not want to go home. The patient has been admitted under observation. He does have a urine culture positive, but no evidence of sepsis. The patient had urinary retention, probably secondary to use of oxybutynin as well as BPH and possibly accentuated by the urinary tract infection. REVIEW OF SYSTEMS: Neuro: No headaches, dizziness. Psych: Chronic anxiety. Depression. Cardiac: No chest pain. Respiratory: No shortness of breath. GI no nausea, vomiting. Good appetite. No abdominal pain. No diarrhea. no symptoms of dysuria or hematuria. Has IDC flowing well. EXTREMITIES: No pain. Complains of weakness. Constitutional: No fever, chills. PHYSICAL EXAMINATION: Pleasant gentleman in no distress. VITAL SIGNS: Temperature 98.4, pulse 83, respirations 20, blood pressure 161/80. The patient has been afebrile since admission. HEENT: Normocephalic. Neck no JVD. CHEST: Clear to auscultation. Cardiac: Normal S1, S2 with no gallops or murmurs. ABDOMEN: Soft. Bowel sounds present. EXTREMITIES: No edema. Good pulses both upper and lower extremities. Patient able to move his extremities in bed without difficulty. LABORATORY ASSESSMENT: Urine culture positive for E coli resistant to Cipro. Sensitive to Bactrim. Blood cultures no growth. ASSESSMENT: 1. Lower urinary tract infection. 2. Urinary retention. 3. Weakness. 4. Coronary artery disease, stable. 5. Anxiety. 6. Depression. PLAN: The patient is stable. Continue present medical regimen. Patient has refused to go home. Sign Erector as well at work on him tomorrow. Will convert him to inpatient since his observation time is over. The patient is going to require placement. MMODL / IJN: [id number] /
--- NOTE | 2017-12-22 08:19 | P.DS ---
Providers Date of admission: 12/18/17 14:17 Attending physician: Vicente Loomis Consults: 12/18/17 17:42 Consult Physician Routine Consulting Provider: Zainab Nails Consult Reason/Comments: anxiety depression Do you want consulting provider notified?: Yes, Notify in am Primary care physician: Vicente Loomis [facility] Course: This 82-year-old gentleman presented to the emergency room via ambulance because he was wearing and worrying about what his neighbor told him that he was having symptoms of dementia. Patient quite anxious in the emergency room evaluation including a CAT scan of the brain and abdomen and pelvis revealed he had a distended urinary bladder. Cuellar catheter placed urine analysis unremarkable. The patient vitals and stable electrolytes normal except for sodium 135 and potassium 3.6. This was corrected easily. Patient given hydration. Patient said he could not get up and go and the nursing staff in the emergency room were uncomfortable sending him home. He did not meet criteria for hospitalization. He was admitted to the hospital so the social workers could work with his discharge. The patient lives by himself. The neighbor feels overburdened by patient's numerous calls to them everyday. The patient the day following admission did walk without any difficulty. He used a walker. However yesterday he refused to get out of bed saying that he could not get up or get outdoor walk. The patient refuses physical therapy. He said he did not want to go home. The patient does have anxiety depression. He is on medical therapy. He was seen by psychiatry. Urine culture did come back showing E. coli which has been placed on Bactrim. No evidence of sepsis. Patient's Cuellar catheter was placed for urinary retention. Patient had been started on Flomax. He had been placed on oxybutynin by the urologist on the outpatient about a year ago. This has been discontinued. Urinary retention probably related to oxybutynin, urinary tract infection and BPH. Patient this morning did get out of bed and sit in a chair declined walking. He was stable to stand up and transfer to the chair. Patient needs to be discharged to facility for continuation of care. Final diagnosis to include 1. Urinary tract infection number 2. Urinary retention suspect acute on chronic 3. BPH 4. Anxiety depression 5. Stable coronary artery disease 6. Hypertension Patient Condition at Discharge: Fair Plan - Discharge Summary Discharge Rx Participant: No New Discharge Prescriptions: New Acetaminophen Tab [Tylenol] 650 mg PO Q6HR PRN tab PRN Reason: Fever and/ or MILD Pain Escitalopram [Lexapro] 10 mg PO DAILY tab Lisinopril [Zestril] 10 mg PO DAILY #30 tab Tamsulosin [Flomax] 0.4 mg PO PC-SUPPER #90 cap.er.24h Sulfamethox-Tmp 800-160Mg [Bactrim DS 800-160 mg] 1 tab PO Q12HR #14 tab Continue Nitroglycerin Sl Tabs [Nitrostat] 0.4 mg SUBLINGUAL Q5M PRN PRN Reason: Chest Pain Omeprazole [PriLOSEC] 20 mg PO DAILY Aspirin EC [Ecotrin] 325 mg PO DAILY Atorvastatin [Lipitor] 40 mg PO DAILY #30 tab LORazepam [Ativan] 1 mg PO BID PRN PRN Reason: Anxiety Metoprolol Succinate [Toprol Xl] 50 mg PO DAILY Discontinued Oxybutynin ER [Ditropan Xl] 15 mg PO DAILY Discharge Medication List Aspirin EC [Ecotrin] 325 mg PO DAILY 07/14/14 [History] Nitroglycerin Sl Tabs [Nitrostat] 0.4 mg SUBLINGUAL Q5M PRN 07/14/14 [History] Omeprazole [PriLOSEC] 20 mg PO DAILY 07/14/14 [History] Atorvastatin [Lipitor] 40 mg PO DAILY #30 tab 07/19/14 [Rx] LORazepam [Ativan] 1 mg PO BID PRN 12/18/17 [History] Metoprolol Succinate [Toprol Xl] 50 mg PO DAILY 12/18/17 [History] Acetaminophen Tab [Tylenol] 650 mg PO Q6HR PRN tab 12/21/17 [Rx] Escitalopram [Lexapro] 10 mg PO DAILY tab 12/21/17 [Rx] Lisinopril [Zestril] 10 mg PO DAILY #30 tab 12/21/17 [Rx] Sulfamethox-Tmp 800-160Mg [Bactrim DS 800-160 mg] 1 tab PO Q12HR #14 tab [Rx] Tamsulosin [Flomax] 0.4 mg PO PC-SUPPER #90 cap.er.24h 12/21/17 [Rx] Follow up Appointment(s)/Referral(s): Vicente Loomis MD [Primary Care Provider] - 1-2 days Daniel Dillon MD [STAFF PHYSICIAN] - 1-2 days [facility] Visiting Nurse, [NON-STAFF] - 1-2 Days Patient Instructions/Handouts: Urinary Retention in Men (ED) Activity/Diet/Wound Care/Special Instructions: [facility] to help with finding medicine aide services for in the home , contact [phone] Meals on Wheels to help with food, contact them at [phone].
[2017-12-22] MEDS: SULFAMETHOX-TMP 800-160MG 1 EACH TAB PO SCH ×2 (08:33→20:53)
[2017-12-22] MEDS: PANTOPRAZOLE 40 MG TABLET PO SCH (08:33)
[2017-12-22] MEDS: ESCITALOPRAM 10 MG TAB PO SCH (08:33)
[2017-12-22] MEDS: LISINOPRIL 10 MG TAB PO SCH (08:33)
[2017-12-22] MEDS: CLOPIDOGREL 75 MG TAB PO SCH (08:33)
[2017-12-22] MEDS: ISOSORBIDE MONONITRATE ER 60 MG TAB.ER.24H PO SCH (08:33)
[2017-12-22] MEDS: ATORVASTATIN 40 MG TAB PO SCH (08:33)
[2017-12-22] MEDS: LORazepam 1 MG TAB PO PRN ×2 (08:37→20:53)
[2017-12-22] MEDS: TAMSULOSIN 0.4 MG CAP.ER.24H PO SCH (18:24)
[2017-12-22] MEDS ORDERED: LORazepam 1 MG TAB PO STA (21:39)
[2017-12-23] MEDS: LORazepam 1 MG TAB PO PRN ×2 (08:09→20:08)
[2017-12-23] MEDS: CLOPIDOGREL 75 MG TAB PO SCH (08:38)
[2017-12-23] MEDS: PANTOPRAZOLE 40 MG TABLET PO SCH (08:38)
[2017-12-23] MEDS: ATORVASTATIN 40 MG TAB PO SCH (08:38)
[2017-12-23] MEDS: ESCITALOPRAM 10 MG TAB PO SCH (08:38)
[2017-12-23] MEDS: METOPROLOL SUCCINATE (ER) 50 MG TAB.ER.24H PO SCH (08:39)
[2017-12-23] MEDS: ISOSORBIDE MONONITRATE ER 60 MG TAB.ER.24H PO SCH (08:39)
[2017-12-23] MEDS: LISINOPRIL 10 MG TAB PO SCH (08:39)
[2017-12-23] MEDS: SULFAMETHOX-TMP 800-160MG 1 EACH TAB PO SCH ×2 (08:40→20:07)
--- NOTE | 2017-12-23 10:47 | PN ---
PROGRESS NOTE CHIEF COMPLAINT: Re-evaluation. HISTORY OF PRESENT ILLNESS: This is an 82-year-old gentleman who was admitted to the hospital because of inability to take care of himself. The patient has urinary retention for which he had a Cuellar catheter placed. The patient also has subsequently a urine culture which has shown E coli. The patient is on Bactrim. The patient has chronic anxiety, depression. The patient is on treatment for the same. Has been seen by the psychiatrist. The patient yesterday totally refused to get out of bed saying that he was too weak today. Upon recommendation, he did get out of bed and transferred himself to a chair and sat down saying that he would go for a walk later, but did not want to walk at the time. REVIEW OF SYSTEMS: NEURO: Denies any headaches, dizziness. PSYCH: Anxiety. CARDIAC: No chest pain, angina, palpitation. RESPIRATORY: Denies shortness of breath, cough, hemoptysis. GI: No nausea, vomiting, abdominal pain, diarrhea. : No symptoms of dysuria, hematuria. Has IDC. EXTREMITIES: No pain, edema. CONSTITUTIONAL: No fever, chills. PHYSICAL EXAMINATION: Pleasant gentleman at present in no distress. Vital signs reveal temperature 97.3, pulse 93, respirations 18, blood pressure 153/87, pulse ox of 97% on room air. HEENT: Normocephalic. NECK: Supple. No JVD. CHEST: Clear to auscultation and percussion. CARDIAC: Normal S1, S2 with no gallops. Systolic murmur 2/6 left sternal border. ABDOMEN: Soft. Bowel sounds present. EXTREMITIES: Trace edema. NEUROLOGICAL: Awake, alert, oriented with well-coordinated movements. LABORATORY ASSESSMENT: None new. ASSESSMENT: 1. Urinary tract infection. 2. Anxiety depression. 3. Stable coronary artery disease. PLAN: The patient is stable. Continue present medical regimen. Patient's prognosis is guarded. Patient is awaiting placement, will await placement. MMODL / IJN: [id number] /
[2017-12-23] MEDS: TAMSULOSIN 0.4 MG CAP.ER.24H PO SCH (18:42)
[2017-12-24 06:00] VITALS: BP 158/79; PULSE 83; RESP 16; TEMP 98
--- NOTE | 2017-12-24 06:57 | PN ---
PROGRESS NOTE DATE OF SERVICE: 12/23/2017 CHIEF COMPLAINT: Re-evaluation. HISTORY OF PRESENT ILLNESS: This 82-year-old gentleman is admitted to the hospital because of inability to take care of himself at home. The patient had urinary retention, which apparently is resolved. The patient also had a urinary tract infection for which he is on antibiotics. The patient has chronic anxiety and depression. He has been seen by Psych. The patient is awaiting transfer to nursing facility. REVIEW OF SYSTEMS: NEURO: Denies any headaches, dizziness. PSYCH: Chronic anxiety. CARDIAC: No chest pain or angina or palpitation. RESPIRATORY: No shortness of breath, cough, hemoptysis. GI: No nausea, vomiting, abdominal pain, diarrhea. : No symptoms of dysuria or hematuria. EXTREMITIES: No pain or edema. CONSTITUTIONAL: No fever or chills. Complains of generalized weakness. PHYSICAL EXAM: An 82-year-old gentleman at present in no distress. Vital signs revealed temperature 97.2, pulse 104, respirations 20, blood pressure 135/84, pulse ox of 94% on room air. HEENT: Normocephalic. NECK: No JVD. CHEST: Clear to auscultation and percussion. CARDIAC: Normal S1, S2 with no gallops or murmurs. ABDOMEN: Soft. Bowel sounds present. Extremities reveal no edema. No tenderness. Neurologically: Awake, alert, oriented with well-coordinated movements. LABORATORY ASSESSMENT: None new. ASSESSMENT: 1. Urinary tract infection. 2. Urinary retention, resolved. 3. Anxiety. 4. Depression. 5. Stable coronary artery disease. PLAN: The patient is stable. Continue present medical regimen. Patient's condition discussed with the patient. Prognosis is guarded. The patient plan for transfer to nursing facility as soon as a bed is available. MMODL / IJN: [id number] /
[2017-12-24] MEDS: CLOPIDOGREL 75 MG TAB PO SCH (09:04)
[2017-12-24] MEDS: ATORVASTATIN 40 MG TAB PO SCH (09:04)
[2017-12-24] MEDS: PANTOPRAZOLE 40 MG TABLET PO SCH (09:04)
[2017-12-24] MEDS: ESCITALOPRAM 10 MG TAB PO SCH (09:05)
[2017-12-24] MEDS: SULFAMETHOX-TMP 800-160MG 1 EACH TAB PO SCH (09:05)
[2017-12-24] MEDS: METOPROLOL SUCCINATE (ER) 50 MG TAB.ER.24H PO SCH (09:05)
[2017-12-24] MEDS: ISOSORBIDE MONONITRATE ER 60 MG TAB.ER.24H PO SCH (09:05)
[2017-12-24] MEDS: LISINOPRIL 10 MG TAB PO SCH (09:05)
[2017-12-24] MEDS: LORazepam 1 MG TAB PO PRN (12:21)
--- NOTE | 2017-12-25 06:31 | PN ---
PROGRESS NOTE DATE OF SERVICE: 12/24/2017 CHIEF COMPLAINT: Re-evaluation. HISTORY OF PRESENT ILLNESS: This is an 82-year-old gentleman who was admitted to the hospital because of inability to live by himself. The patient also had a urinary tract infection as well as urinary retention. His urinary retention has resolved. The patient has been on Bactrim for his urinary tract infection. The patient has underlying chronic anxiety and depression. His mood is better. The patient feels he is ready to get out of the hospital. The patient is planned for transfer to nursing facility. REVIEW OF SYSTEMS: NEURO: Denies any headaches, dizziness. PSYCH: Chronic anxiety. CARDIAC: No chest pain, angina or palpitation. RESPIRATORY: No shortness of breath, cough. GI: No nausea, vomiting, abdominal pain, diarrhea. : No symptoms of dysuria or hematuria. EXTREMITIES: Denies pain. CONSTITUTIONAL: No fever or chills. PHYSICAL EXAMINATION: Pleasant gentleman in no distress. Vital signs reveal temperature 98, pulse 83, respirations 16, blood pressure 158/79, pulse ox 97% on room air. HEENT: Normocephalic. NECK: No JVD. CHEST: Clear to auscultation. CARDIAC: Normal S1, S2 with no gallops or murmurs. ABDOMEN: Soft. Bowel sounds present. EXTREMITIES: No edema. No tenderness. NEUROLOGICALLY: Awake, alert, oriented with well-coordinated movements. LABORATORY ASSESSMENT: None new. ASSESSMENT: 1. Urinary tract infection. 2. Status post urinary retention. 3. Chronic anxiety, depression. PLAN: The patient is stable and is planned for transfer to nursing facility for rehab. MMODL / ANSELMON: [id number] /
== END 2017-12-24 13:32 | DRG 690 ==
LOC: EC 20:06 → 4MS4W 12-18 14:17 → OBSVTOIN 12-18 14:17 → INTOOBSV 12-18 14:17 → 4MS4W 12-18 14:59 → OBSVTOIN 12-21 13:41
PROVIDERS: ADMIT Internal Medicine; ATTEND Internal Medicine
DX: N39.0 Urinary tract infection, site not specified (principal); N40.1 Benign prostatic hyperplasia with lower urinary tract symptoms; R33.8 Other retention of urine; I25.10 Atherosclerotic heart disease of native coronary artery without angina pectoris; I10 Essential (primary) hypertension; F41.9 Anxiety disorder, unspecified; B96.20 Unspecified Escherichia coli [E. coli] as the cause of diseases classified elsewhere; R53.81 Other malaise; Z60.2 Problems related to living alone; E78.5 Hyperlipidemia, unspecified; G31.84 Mild cognitive impairment of uncertain or unknown etiology; I71.4 Abdominal aortic aneurysm, without rupture; I25.2 Old myocardial infarction; Z95.1 Presence of aortocoronary bypass graft; Z95.5 Presence of coronary angioplasty implant and graft; Z79.02 Long term (current) use of antithrombotics/antiplatelets; Z79.899 Other long term (current) drug therapy; Z79.82 Long term (current) use of aspirin; Z80.8 Family history of malignant neoplasm of other organs or systems; Z82.49 Family history of ischemic heart disease and other diseases of the circulatory system; Z83.3 Family history of diabetes mellitus
CPT/HCPCS: 36415; 51702; 51798; 70450; 71046; 74018; 74177; 80048; 80053; 81001; 82150; 83605; 83690; 83880; 84484; 85025; 85610; 85730; 87040; 87077; 87086; 87186; 93005; 96361; 96374; 99285

== ENCOUNTER 2019-01-16 12:38 | Emergency (ER) | payer MEDICARE ==
[2019-01-16 12:47] VITALS: RESP 18; TEMP 98
[2019-01-16] MEDS ORDERED: ACETAMINOPHEN TAB 500 MG TAB PO STA (13:09)
--- NOTE | 2019-01-16 13:15 | ED ---
General Adult HPI - General Stated complaint: Back Pain Source: patient, EMS, RN notes reviewed Mode of arrival: ambulatory Limitations: no limitations - History of Present Illness Initial comments: Chief complaint and history of present illness this is a 3-year-old male here with complaint of low back pain getting progressively worse over the past week. Patient thinks he may have injured it while lifting his garage door multiple times per day. He denies any direct injury no falls. Denies numbness or tingling to his lower extremities. Denies any change in bowel habits. No other complaints. - Related Data Home Medications Medication Instructions Recorded Confirmed Aspirin EC [Ecotrin] 325 mg PO DAILY 07/14/14 12/18/17 Nitroglycerin Sl Tabs [Nitrostat] 0.4 mg SUBLINGUAL Q5M PRN 07/14/14 12/18/17 Omeprazole [PriLOSEC] 20 mg PO DAILY 07/14/14 12/18/17 LORazepam [Ativan] 1 mg PO BID PRN 12/18/17 12/18/17 Metoprolol Succinate [Toprol Xl] 50 mg PO DAILY 12/18/17 12/18/17 Previous Rx's Medication Instructions Recorded Atorvastatin [Lipitor] 40 mg PO DAILY #30 tab 07/19/14 Acetaminophen Tab [Tylenol] 650 mg PO Q6HR PRN tab 12/21/17 Escitalopram [Lexapro] 10 mg PO DAILY tab 12/21/17 Lisinopril [Zestril] 10 mg PO DAILY #30 tab 12/21/17 Sulfamethox-Tmp 800-160Mg [Bactrim 1 tab PO Q12HR #14 tab 12/21/17 DS 800-160 mg] Tamsulosin [Flomax] 0.4 mg PO PC-SUPPER #90 cap.er.24h 12/21/17 Allergies Allergy/AdvReac Type Severity Reaction Status Date / Time No Known Allergies Allergy Verified 01/16/19 12:47 Review of Systems ROS Statement: Those systems with pertinent positive or pertinent negative responses have been documented in the HPI. Review of systems. Patient denies any headache reports his visual acuity is slightly changing over the past year denies chest pain shortness breath GI/ problems he has chronic low back discomfort worse of late. He reports one year ago had a urinary tract infection and was placed in rehab for 5 weeks. During that same time he had back exercises which helped a great deal. Since then he states is very active uses a walker to get around. But does have to open his own garage door which may be increasing risk for pain. The patient wears depends. All systems reviewed. Patient's past history significant for coronary artery disease with heart catheterization surgeries also include tonsillectomy is out of control bypass. Other problems include GERD, hyperlipidemia hypertension and hemorrhoids. Family history no expiratory. Patient denies any ALLERGIES. Nonsmoker nondrinker. ROS Other: All systems not noted in ROS Statement are negative. Past Medical History Past Medical History: Coronary Artery Disease (CAD), Chest Pain / Angina, GERD/Reflux, Hyperlipidemia, Hypertension Additional Past Medical History / Comment(s): hemorrhoids History of Any Multi-Drug Resistant Organisms: None Reported Past Surgical History: Coronary Bypass/CABG, Heart Catheterization, Heart Catheterization With Stent, Tonsillectomy Additional Past Surgical History / Comment(s): CABG-QUADRUPLE 1997, 2007 HEART CATH, 07-19-17 heart cath w/ angioplsty/stents. CATARACT WITH LENS IMPLANT 2007 (TORIC-ACRYSOF) .colonoscopy Past Anesthesia/Blood Transfusion Reactions: No Reported Reaction Additional Past Anesthesia/Blood Transfusion Reaction / Comment(s): pt stated he received blood in past-no reaction to it. Date of Last Stent Placement:: 2014 Past Psychological History: Anxiety Smoking Status: Former smoker Past Alcohol Use History: None Reported Past Drug Use History: None Reported - Past Family History Mother Family Medical History: Pneumonia Additional Family Medical History / Comment(s): from pne Father Family Medical History: Pneumonia Additional Family Medical History / Comment(s): from pne Brother(s) Family Medical History: Cancer Additional Family Medical History / Comment(s): THROAT CA General Exam - General Exam Comments Initial Comments: General: The patient is awake and alert, patient presents emergency room because of low back pain getting progressively worse over the past 3 days. Patient denies any injury no numbness or tingling to the lower extremities. Patient's vital signs shows temperature 98.0 pulse 66 respiratory rate 18 pulse ox 97% room air blood pressure 160/74. Eye: Pupils are equal, round and reactive to light, extra-ocular movements are intact; there is normal conjunctiva bilaterally. No signs of icterus. She states she has had cataract surgery. Ears, nose, mouth and throat: There are moist mucous membranes and no oral lesions. Neck: The neck is supple, there is no tenderness, no anterior cervical lymphadenopathy. Cardiovascular: A regular rate and rhythm, no murmur appreciated. Respiratory: Lungs are clear to auscultation, respirations are non-labored, breath sounds are equal. No wheezes, stridor, rales, or rhonchi. Gastrointestinal: Soft, non-distended, non-tender abdomen without masses or organomegaly noted. No pulsatile mass, no bruit appreciated. There is no rebound or guarding present. No CVA tenderness. Bowel sounds are unremarkable. Back: Patient complains of low-back pain to the lumbar region. No evidence of any rash. Early shingles was discussed. No weakness to his legs. Neurovascular status lower extremities intact. Musculoskeletal: Normal ROM, no tenderness, minimal pedal edema. Bilateral femoral pulses appreciated. There is no calf tenderness or swelling. Sensation intact. Pulses equal bilaterally 2+. Neurological: No neuro deficits Skin: Skin is warm and dry and no rashes. Psychiatric: Cooperative, appropriate mood & affect, normal judgment. Limitations: no limitations Course Vital Signs 01/16/19 12:42 Temperature 98.0 F Pulse Rate 66 Respiratory 18 Rate Blood Pressure 160/74 O2 Sat by Pulse 97 Oximetry Medical Decision Making - Medical Decision Making Medical decision making; this is a 3-year-old male with a complaint of lumbar area pain for the past 3 days. He thinks is because of lifting his garage door several times a day. Patient denies any difficulties with urinating. Radiation of pain does not go down the legs. No numbness no tingling. The patient's x-ray of the lumbosacral spine was done and reviewed by the radiologist. His impression is multilevel moderate to severe degenerative disc disease with grade 1 anterolisthesis L4 and L5. Suspected bilateral foraminal encroachment at L4-L5 and L5-S1. Recommend follow-up MRI. He is to atherosclerotic calcification of the aorta. Findings suggest aortic aneurysm measuring approximately 3.7 cm correlate clinically. As read by Dr. Gill I discussed with the patient these findings. He states he understands. He states that he has recently been on ibuprofen because of some dental work he had done but he preferred Tylenol which worked better. While in emergency room the patient received 1 g of Tylenol by mouth. The plans for the patient to be di scharged home. He states he is able to ambulate with the use of his walker. He states he has friends that look in on him daily. We did discuss the possibility of admission and was unable to ambulate and needs help but states he is able to manage at home as he is right now. Patient was advised to call follow up with his family physician. Suggested the patient have a follow-up CAT scan or MRI of the lumbar sacral spine and further evaluation of the aorta as suggested by the radiologist. Currently at this time there is no suggestion of aortic dissection. Patient will be sent home by wheelchair van which she accepts. States he has friends at home and help, they have left the house open for him. Advised as to how to take Tylenol and/or combination of Tylenol and ibuprofen for discomfort. He again states he is feeling better after having received 1 g of Tylenol in emergency room. Disposition Clinical Impression: Acute lumbosacral myofascial strain Disposition: HOME SELF-CARE Condition: Fair Instructions (If sedation given, give patient instructions): Nonruptured Abdominal Aortic Aneurysm (DC), Acute Low Back Pain (ED) Additional Instructions: Use Tylenol, 500 mg one every 4-6 hours for pain. Ice pack to the lumbar spine as needed. All follow-up family doctor concerning an MRI of the lumbar spine to rule out disc disease. Return to emergency room if you are unable to release her urine or unable to ambulate. Also follow-up with family doctor concerning nonruptured abdominal aortic aneurysm measuring 3.7 cm. Is patient prescribed a controlled substance at d/c from ED?: No Referrals: Vicente Loomis MD [Primary Care Provider] - 1-2 days Time of Disposition: 14:06
--- NOTE | 2019-01-16 13:39 | XR ---
EXAM TYPE: LUMBAR SPINE X RAY SERIES COMPARISON: NONE HISTORY: Pain TECHNIQUE: 4 views are submitted. FINDINGS: Alignment is anatomic. The pedicles are intact. The transverse processes are intact. There is mult ilevel moderate degenerative disc disease with severe facet arthropathy L4-5 and L5-S1 with. Diffuse osteopenia noted. Grade 1 anterolisthesis L4 on L5. Vascular calcifications of the aorta with suspicion for 3.7 cm estimated abdominal aortic aneurysm IMPRESSION: 1. Multilevel moderate to severe degenerative disc disease with grade 1 anterolisthesis L4 on L5.. S uspect bilateral foraminal encroachment at L4-5 and L5-S1. Recommend follow-up MRI. 2. Atherosclerotic calcifications of the aorta. Findings suggest aortic aneurysm measuring approximat jovanna 3.7 cm. Correlate clinically.
[2019-01-16 15:26] VITALS: BP 118/74; PULSE 68
== END 2019-01-16 15:27 | disposition home or self-care (01) ==
LOC: EC 12:38
DX: S39.012A Strain of muscle, fascia and tendon of lower back, initial encounter (principal); M51.36 Other intervertebral disc degeneration, lumbar region; M43.16 Spondylolisthesis, lumbar region; I70.0 Atherosclerosis of aorta; I25.119 Atherosclerotic heart disease of native coronary artery with unspecified angina pectoris; I10 Essential (primary) hypertension; K21.9 Gastro-esophageal reflux disease without esophagitis; Z87.891 Personal history of nicotine dependence; Z79.82 Long term (current) use of aspirin; Z79.899 Other long term (current) drug therapy; Z95.1 Presence of aortocoronary bypass graft; Z95.5 Presence of coronary angioplasty implant and graft; Z97.3 Presence of spectacles and contact lenses; X58.XXXA Exposure to other specified factors, initial encounter
CPT/HCPCS: 72110; 99284

== ENCOUNTER 2019-01-18 13:37 | Inpatient (IN) | payer MEDICARE ==
[2019-01-18 15:33] LABS: Basophils % (A) 0 %; Eosinophils # (A) 0.1 k/uL (0-0.7); Eosinophils % (A) 1 %; HCT 43.4 % (39.0-53.0); HGB 14.4 gm/dL (13.0-17.5); Lymphocytes % (A) 13 %; MCH 29.5 pg (25.0-35.0); MCHC 33.2 g/dL (31.0-37.0); MCV 88.8 fL (80.0-100.0); Mean Platelet Volume 7.8; Monocytes # (A) 0.4 k/uL (0-1.0); Monocytes % (A) 5 %; Neutrophils # (A) 5.7 k/uL (1.3-7.7); Neutrophils % (A) 78 %; Platelet Count 131 k/uL (150-450); RBC 4.89 m/uL (4.30-5.90); RDW 14.7 % (11.5-15.5); WBC 7.4 k/uL (3.8-10.6)
[2019-01-18 15:41] LABS: ALT 19 U/L (21-72); AST 19 U/L (17-59); African American GFR (CKD) >90 (>60 ml/min/1.73 sqM); Albumin 3.8 g/dL (3.5-5.0); Alkaline Phosphatase 52 U/L (38-126); Anion Gap 8 mmol/L; Blood Urea Nitrogen 16 mg/dL (9-20); Calcium 8.7 mg/dL (8.4-10.2); Carbon Dioxide 24 mmol/L (22-30); Chloride 106 mmol/L (98-107); Glucose 93 mg/dL (74-99); Potassium 3.8 mmol/L (3.5-5.1); Sodium 138 mmol/L (137-145); Total Bilirubin 0.8 mg/dL (0.2-1.3); Total Protein 6.5 g/dL (6.3-8.2)
--- NOTE | 2019-01-18 15:48 | ED ---
Back Pain HPI - General Source: patient, EMS, RN notes reviewed Limitations: no limitations <Randall Perez - Last Filed: 01/18/19 17:23> <Andrey Elliott - Last Filed: 01/18/19 18:02> - General Chief Complaint: Back Pain/Injury Stated Complaint: Back Pain Time Seen by Provider: 01/18/19 14:40 - History of Present Illness Initial Comments: 83-year-old male presents emergency department for recheck of back pain. Patient had visit on Friday in the ER and states that he was diagnosed with a strain. Patient states that he got the point where he could not get out of bed he was helped by family members and with walker but unable to successfully ambulate. Patient states that he has had some issues with his back in the past but states that they're amended this point. Patient states that he is also had issues with urinary tract infections and confusion in the past. Patient went to abdominal pain no bowel incontinence. Patient states he has some urinary issues with hold his urine but this is known to his urologist. Patient was seen and had x-rays in the ER which showed degenerative disc patient was advised take Tylenol but states that his been taken 2 extra strength with no relief of symptoms. (Randall Perez) - Related Data Home Medications Medication Instructions Recorded Confirmed Omeprazole [PriLOSEC] 20 mg PO DAILY 07/14/14 01/18/19 Metoprolol Succinate [Toprol Xl] 50 mg PO DAILY 12/18/17 01/18/19 Ibuprofen [Motrin] 600 mg PO Q6HR PRN 01/16/19 01/18/19 LORazepam [Ativan] 1 mg PO BID PRN 01/16/19 01/18/19 Oxybutynin Chloride [Oxybutynin 15 mg PO DAILY 01/16/19 01/18/19 Chloride ER] Previous Rx's Medication Instructions Recorded Atorvastatin [Lipitor] 40 mg PO DAILY #30 tab 07/19/14 Escitalopram [Lexapro] 10 mg PO DAILY tab 12/21/17 Tamsulosin [Flomax] 0.4 mg PO PC-SUPPER #90 cap.er.24h 12/21/17 Allergies Allergy/AdvReac Type Severity Reaction Status Date / Time No Known Allergies Allergy Verified 01/18/19 13:47 Review of Systems ROS Other: All systems not noted in ROS Statement are negative. <Randall Perez - Last Filed: 01/18/19 17:23> ROS Other: All systems not noted in ROS Statement are negative. <Andrey Elliott - Last Filed: 01/18/19 18:02> ROS Statement: Those systems with pertinent positive or pertinent negative responses have been documented in the HPI. Past Medical History Past Medical History: Coronary Artery Disease (CAD), Chest Pain / Angina, GERD/Reflux, Hyperlipidemia, Hypertension Additional Past Medical History / Comment(s): hemorrhoids History of Any Multi-Drug Resistant Organisms: None Reported Past Surgical History: Coronary Bypass/CABG, Heart Catheterization, Heart Catheterization With Stent, Tonsillectomy Additional Past Surgical History / Comment(s): CABG-QUADRUPLE 1997, 2007 HEART CATH, 07-19-17 heart cath w/ angioplsty/stents. CATARACT WITH LENS IMPLANT 2007 (TORIC-ACRYSOF) .colonoscopy Past Anesthesia/Blood Transfusion Reactions: No Reported Reaction Additional Past Anesthesia/Blood Transfusion Reaction / Comment(s): pt stated he received blood in past-no reaction to it. Date of Last Stent Placement:: 2014 Past Psychological History: Anxiety Smoking Status: Former smoker Past Alcohol Use History: None Reported Past Drug Use History: None Reported - Past Family History Mother Family Medical History: Pneumonia Additional Family Medical History / Comment(s): from pne Father Family Medical History: Pneumonia Additional Family Medical History / Comment(s): from pne Brother(s) Family Medical History: Cancer Additional Family Medical History / Comment(s): THROAT CA <Randall Perez - Last Filed: 01/18/19 17:23> General Exam Limitations: no limitations General appearance: alert, in no apparent distress Head exam: Present: atraumatic, normocephalic, normal inspection Neck exam: Present: normal inspection. Absent: tenderness, meningismus, lymphadenopathy Respiratory exam: Present: normal lung sounds bilaterally. Absent: respiratory distress, wheezes, rales, rhonchi, stridor Cardiovascular Exam: Present: regular rate, normal rhythm, normal heart sounds. Absent: systolic murmur, diastolic murmur, rubs, gallop, clicks GI/Abdominal exam: Present: soft, normal bowel sounds. Absent: distended, tenderness, guarding, rebound, rigid Extremities exam: Present: normal inspection, full ROM, normal capillary refill, other (Laboratory pulses equal bilaterally). Absent: tenderness, pedal edema, joint swelling, calf tenderness Back exam: Present: tenderness, paraspinal tenderness. Absent: full ROM (Decreased range of motion secondary pain), vertebral tenderness Skin exam: Present: warm, dry, intact, normal color. Absent: rash <Randall Perez - Last Filed: 01/18/19 17:23> Course <Andrey Elliott - Last Filed: 01/18/19 18:02> Vital Signs 01/18/19 01/18/19 01/18/19 13:45 15:15 17:00 Temperature 97.4 F L Pulse Rate 71 73 79 Respiratory 18 18 18 Rate Blood Pressure 170/76 167/73 180/87 O2 Sat by Pulse 94 L 97 96 Oximetry - Reevaluation(s) Reevaluation #1: 01/18/19 18:02 Case was discussed with practitioner Randall. Chart and results reviewed. Case was also discussed with Dr. Jaramillo, covering for Dr. Loomis, who will admit. (Andrey Elliott) Medical Decision Making - Lab Data Result diagrams: 01/18/19 15:17 01/18/19 15:17 <Randall Perez - Last Filed: 01/18/19 17:23> - Lab Data Result diagrams: 01/18/19 15:17 01/18/19 15:17 <Andrey Elliott - Last Filed: 01/18/19 18:02> - Medical Decision Making 83-year-old male present emergency department for low back pain. Patient having extreme difficulty ambulate in. Patient was also had some confusion and their concern about possible UTI. Patient has evidence of urinary tract infection. Patient's had sepsis in the past related cyst. Patient we given Rocephin. Patient be admitted for evaluation by orthopedics. (Randall Perez) - Lab Data Lab Results 01/18/19 01/18/19 01/18/19 Range/Units 15:17 15:17 15:17 WBC 7.4 (3.8-10.6) k/uL RBC 4.89 (4.30-5.90) m/uL Hgb 14.4 (13.0-17.5) gm/dL Hct 43.4 (39.0-53.0) % MCV 88.8 (80.0-100.0) fL MCH 29.5 (25.0-35.0) pg MCHC 33.2 (31.0-37.0) g/dL RDW 14.7 (11.5-15.5) % Plt Count 131 L (150-450) k/uL Neutrophils % 78 % Lymphocytes % 13 % Monocytes % 5 % Eosinophils % 1 % Basophils % 0 % Neutrophils # 5.7 (1.3-7.7) k/uL Lymphocytes # 1.0 (1.0-4.8) k/uL Monocytes # 0.4 (0-1.0) k/uL Eosinophils # 0.1 (0-0.7) k/uL Basophils # 0.0 (0-0.2) k/uL Sodium 138 (137-145) mmol/L Potassium 3.8 (3.5-5.1) mmol/L Chloride 106 (98-107) mmol/L Carbon Dioxide 24 (22-30) mmol/L Anion Gap 8 mmol/L BUN 16 (9-20) mg/dL Creatinine 0.75 (0.66-1.25) mg/dL Est GFR (CKD-EPI)AfAm >90 (>60 ml/min/1.73 sqM) Est GFR (CKD-EPI)NonAf 85 (>60 ml/min/1.73 sqM) Glucose 93 (74-99) mg/dL Calcium 8.7 (8.4-10.2) mg/dL Total Bilirubin 0.8 (0.2-1.3) mg/dL AST 19 (17-59) U/L ALT 19 L (21-72) U/L Alkaline Phosphatase 52 (38-126) U/L Total Protein 6.5 (6.3-8.2) g/dL Albumin 3.8 (3.5-5.0) g/dL Urine Color Yellow Urine Appearance Cloudy (Clear) Urine pH 5.5 (5.0-8.0) Ur Specific [place] 1.027 (1.001-1.035) Urine Protein Trace H (Negative) Urine Glucose (UA) Negative (Negative) Urine Ketones 2+ H (Negative) Urine Blood Trace H (Negative) Urine Nitrite Negative (Negative) Urine Bilirubin Negative (Negative) Urine Urobilinogen <2.0 (<2.0) mg/dL Ur Leukocyte Esterase Large H (Negative) Urine RBC 3 (0-5) /hpf Urine WBC 60 H (0-5) /hpf Urine WBC Clumps Moderate H (None) /hpf Urine Bacteria Many H (None) /hpf Urine Mucus Occasional H (None) /hpf Disposition <Randall Perez - Last Filed: 01/18/19 17:23> <Andrey Elliott - Last Filed: 01/18/19 18:02> Clinical Impression: Lumbar back pain, Unable to ambulate, UTI (urinary tract infection) Disposition: ADMITTED IP TO THIS HOSP Condition: Fair Referrals: Vicente Loomis MD [Primary Care Provider] - 1-2 days
[2019-01-18 16:32] LABS: Appearance,Urine Cloudy (Clear); Bacteria,Urine Many /hpf; Bilirubin,Urine Negative (Negative); Blood,Urine Trace (Negative); Color,Urine Yellow; Glucose,Urine (UA) Negative (Negative); Ketones,Urine 2+ (Negative); Leukocyte Esterase,Urine Large (Negative); Mucus,Urine Occasional /hpf; Nitrite,Urine Negative (Negative); PH, Urine 5.5 (5.0-8.0); Protein,Urine Trace (Negative); RBC,Urine 3 /hpf (0-5); Specific Gravity,Urine 1.027 (1.001-1.035); Urobilinogen,Urine <2.0 mg/dL (<2.0)
--- NOTE | 2019-01-18 16:36 | CT ---
EXAMINATION TYPE: CT lumbar spine wo con DATE OF EXAM: 01/18/2019 3:48 PM COMPARISON: X-ray lumbar spine dated 01/16/2019 HISTORY: Unable to ambulate CT DLP: 994.5 mGycm Automated exposure control for dose reduction was used. Unenhanced CT of the lumbar spine was performed. Bone and soft tissue window settings are submitted as well as coronal and sagittal reconstructions. No acute fracture. Grade 1 anterolisthesis of L4 and L5 from severe degenerative facet changes. Pedicles are intact. Posterior elements are intact. Moderate sized hiatal hernia. Prevertebral and paravertebral soft tissues appear within normal limits . Large anterior left renal cyst measuring up to 3.8 cm. Diffuse calcification of the infrarenal abdominal aorta. L1-L2: Normal disc space height. No disc herniation protrusion or central stenosis. No facet joint arthropathy. No evidence for foraminal encroachment. L2-L3: Vacuum disc phenomenon and diffuse disc bulge causing mild spinal canal stenosis and bilateral neural foraminal narrowing. L3-L4: Vacuum disc innominate and the inferior endplate of L3 osteolytic process likely degenerative, but infectious is not excluded. Moderate right and severe left neural foraminal stenosis. Mild spinal canal stenosis. L4-L5: Grade 1 anterolisthesis with unroofing of the disc and diffuse disc bulge, degenerative facet arthropathy and ligamentum flavum hypertrophy contributing to moderate spinal canal stenosis and azra re bilateral neural foraminal stenosis. L5-S1: Diffuse disc bulge and facet arthropathy causing moderate bilateral neural foraminal stenosis, greater on the left. IMPRESSION: Grade 1 anterolisthesis of L4 and L5 causing moderate spinal canal stenosis and severe bilateral neur al foraminal stenosis. Inferior endplate L3 lytic lesion process thought to be related to degenerative changes, but infectio us process is not excluded. Moderate size hiatal hernia. Left renal cyst.
[2019-01-18] MEDS ORDERED: ONDANSETRON 4 MG/2 ML VIAL IVP PRN (17:25)
[2019-01-18] MEDS ORDERED: NALOXONE 0.4 MG/ML 1 ML VIAL IV PRN (17:25)
[2019-01-18] MEDS ORDERED: cefTRIAXone IN SWFI 1,000 MG/10 ML SYRINGE IVP STA (17:25)
[2019-01-18] MEDS ORDERED: MORPHINE SULFATE 4 MG/ML SYRINGE IV PRN (17:25)
[2019-01-18 22:28] VITALS: BMI 27.1
--- NOTE | 2019-01-18 22:37 | P.HPIM ---
History of Present Illness H&P Date: 01/18/19 Chief Complaint: Low back pain and inability to ambulate due to pain 83-year-old male with history of chronic low back pain, CAD status post CABG, hypertension Patient presented to the hospital due to low back pain. He reports pain started 4 weeks ago described it as sharp pain over his lower back nonradiating 8 out of 10 in severity gets worse when he tries to ambulate or get up, when he lays down on either of his sides pain will radiate to his buttock on that side. Pain has been getting worse over the past 4 weeks this morning he was unable to get out of bed without using the walker which she normally is able to do take a few steps and then get to the walker but today he wasn't able to get out of the bed and had to use the walker to help support him however he noticed a lot of difficulties walking which she normally reports he would be able to walk around and as the day goes the pain will ease however today the pain was discontinued and worse for which she decided come to the hospital after he wasn't able to get to his PCP office. He reports that on Friday he came to the ED where x-rays were done and then he was released home. Patient reports no saddle numbness or tingling no weakness in bilateral lower extremities no numbness and tingling in bilateral lower extremities, he denies any stool incontinence or urine incontinence. However he reports that on Friday he felt the urge to go to the bathroom however he was unable to get up and time to get to the bathroom and then ended up soiling his closed. Patient denies any trauma to his back. Patient denies any fevers or chills denies any abdominal pain denies any nausea vomiting. Denies any chest pain or trouble breathing In the ED imaging suggested degenerative joint disease Urine analysis was positive patient has history of recurrent UTI. Patient was admitted for treatment of urinary tract infection and evaluation by orthopedics Review of Systems Pertinent positives as noted in HPI. All other systems were reviewed and are negative Past Medical History Past Medical History: Coronary Artery Disease (CAD), Chest Pain / Angina, GERD/Reflux, Hyperlipidemia, Hypertension Additional Past Medical History / Comment(s): hemorrhoids History of Any Multi-Drug Resistant Organisms: None Reported Past Surgical History: Coronary Bypass/CABG, Heart Catheterization, Heart Catheterization With Stent, Tonsillectomy Additional Past Surgical History / Comment(s): CABG-QUADRUPLE 1997, 2007 HEART CATH, 07-19-17 heart cath w/ angioplsty/stents. CATARACT WITH LENS IMPLANT 2007 (TORIC-ACRYSOF) .colonoscopy Past Anesthesia/Blood Transfusion Reactions: No Reported Reaction Additional Past Anesthesia/Blood Transfusion Reaction / Comment(s): pt stated he received blood in past-no reaction to it. Date of Last Stent Placement:: 2014 Past Psychological History: Anxiety Smoking Status: Former smoker Past Alcohol Use History: None Reported Past Drug Use History: None Reported - Past Family History Mother Family Medical History: Pneumonia Additional Family Medical History / Comment(s): from pne Father Family Medical History: Pneumonia Additional Family Medical History / Comment(s): from pne Brother(s) Family Medical History: Cancer Additional Family Medical History / Comment(s): THROAT CA Medications and Allergies Home Medications Medication Instructions Recorded Confirmed Type Omeprazole [PriLOSEC] 20 mg PO DAILY 07/14/14 01/18/19 History Atorvastatin [Lipitor] 40 mg PO DAILY #30 tab 07/19/14 01/18/19 Rx Metoprolol Succinate [Toprol Xl] 50 mg PO DAILY 12/18/17 01/18/19 History Escitalopram [Lexapro] 10 mg PO DAILY tab 12/21/17 01/18/19 Rx Tamsulosin [Flomax] 0.4 mg PO PC-SUPPER #90 cap.er.24h 12/21/17 01/18/19 Rx Ibuprofen [Motrin] 600 mg PO Q6HR PRN 01/16/19 01/18/19 History LORazepam [Ativan] 1 mg PO BID PRN 01/16/19 01/18/19 History Oxybutynin Chloride [Oxybutynin 15 mg PO DAILY 01/16/19 01/18/19 History Chloride ER] Allergies Allergy/AdvReac Type Severity Reaction Status Date / Time No Known Allergies Allergy Verified 01/18/19 13:47 Physical Exam Vitals: Vital Signs Temp Pulse Resp BP Pulse Ox 01/18/19 19:30 97.9 F 57 L 18 149/58 95 01/18/19 18:00 55 L 18 166/71 94 L 01/18/19 17:00 79 18 180/87 96 01/18/19 15:15 73 18 167/73 97 01/18/19 13:45 97.4 F L 71 18 170/76 94 L Intake and Output 01/18/19 01/18/19 01/18/19 06:59 14:59 22:59 Other: Weight 90.265 kg Constitutional: No acute distress, conversant, pleasant Eyes: Anicteric sclerae, moist conjunctiva, no lid-lag Pupils equal round reactive to light ENMT: NC/AT Oropharynx clear, no erythema, or exudates Neck: Supple, FROM, no masses, or JVD No carotid bruits No thyromegaly Lungs: Clear to auscultation Clear to percussion Normal respiratory effort, no accessory muscle use Cardiovascular: Heart regular in rate and rhythm, No murmurs, gallops, or rubs No peripheral edema Abdominal: Soft Nontender, no guarding, rebound or rigidity Abdomen moving with respiration Normoactive bowel sounds No hepatomegaly, No splenomegaly No palpable mass No abdominal wall hernia noted Skin: Normal temperature, tone, texture, turgor No induration No subcutaneous nodules No rash, lesions No ulcers Extremities: No digital cyanosis No clubbing Pedal pulses intact and symmetrical Radial pulses intact and symmetrical No calf tenderness Psychiatric: Alert and oriented to person, place and time Appropriate affect fair judgment Neuro straight leg raising is negative bilaterally. Muscles Strength 5/5 in all 4 extremities , lower extremities with good strength proximally and distally, rectal tone exam was deferred Sensation to light touch grossly present throughout Cranial nerves II-XII grossly intact No focal sensory deficits Lymphatics: no palpable cervical or supraclavicular , or inguinal lymph nodes Results CBC & Chem 7: 01/18/19 15:17 01/18/19 15:17 Labs: Abnormal Lab Results - Last 24 Hours (Table) 01/18/19 01/18/19 01/18/19 Range/Units 15:17 15:17 15:17 Plt Count 131 L (150-450) k/uL ALT 19 L (21-72) U/L Urine Protein Trace H (Negative) Urine Ketones 2+ H (Negative) Urine Blood Trace H (Negative) Ur Leukocyte Esterase Large H (Negative) Urine WBC 60 H (0-5) /hpf Urine WBC Clumps Moderate H (None) /hpf Urine Bacteria Many H (None) /hpf Urine Mucus Occasional H (None) /hpf Assessment and Plan Assessment: 83-year-old male with history of hypertension CAD status post CABG in 1997. Patient admitted as an inpatient with anticipated length of stay more than 48 hours due to UTI and intractable low back pain causing difficulty in ambulating.patient had multiple visits to the ED admitted to be evaluated by orthopedics Plan: Intractable low back pain due to degenerative joint disease Pain control Fall precautions Orthopedic evaluation Urinary tract infection recurrent IV antibiotics with Rocephin Follow-up cultures Mild thrombocytopenia No evidence of bleeding Continue to monitor Chronic conditions Hypertension Hyperlipidemia GERD CAD status post CABG Anxiety Resume home meds DVT prophylaxis heparin subcu 3 times a day CODE STATUS no code Discussed with: Patient, ER, RN Anticipated discharge: 48-[address]: Pending clinical course, PT/OT evaluation A total of 60 minutes was spent on the care of this complex patient more than 50% of the time was spent in counseling and care coordination.
[2019-01-18] MEDS: LORazepam 1 MG TAB PO PRN (22:40)
[2019-01-18] MEDS: TAMSULOSIN 0.4 MG CAP.ER.24H PO SCH (22:40)
[2019-01-18] MEDS: HEPARIN SODIUM,PORCINE 5,000 UNIT/ML 1 ML VIAL SQ SCH (23:15)
[2019-01-19] MEDS: PANTOPRAZOLE 40 MG TABLET PO SCH (07:49)
[2019-01-19] MEDS: ATORVASTATIN 40 MG TAB PO SCH (07:49)
[2019-01-19] MEDS: HYDROcodone/APAP 5-325MG 1 EACH TAB PO PRN ×2 (07:50→13:24)
[2019-01-19] MEDS: ESCITALOPRAM 10 MG TAB PO SCH (07:50)
[2019-01-19] MEDS: OXYBUTYNIN 15 MG TAB.ER.24 PO SCH (07:50)
[2019-01-19] MEDS: METOPROLOL SUCCINATE (ER) 50 MG TAB.ER.24H PO SCH (07:50)
[2019-01-19 08:46] LABS: Basophils % (A) 0 %; Eosinophils # (A) 0.1 k/uL (0-0.7); Eosinophils % (A) 2 %; HCT 44.8 % (39.0-53.0); HGB 14.6 gm/dL (13.0-17.5); Lymphocytes # (A) 0.8 k/uL (1.0-4.8); Lymphocytes % (A) 10 %; MCHC 32.7 g/dL (31.0-37.0); MCV 88.8 fL (80.0-100.0); Mean Platelet Volume 7.8; Monocytes # (A) 0.6 k/uL (0-1.0); Monocytes % (A) 7 %; Neutrophils # (A) 6.3 k/uL (1.3-7.7); Neutrophils % (A) 80 %; Platelet Count 145 k/uL (150-450); RBC 5.05 m/uL (4.30-5.90); RDW 14.6 % (11.5-15.5); WBC 7.9 k/uL (3.8-10.6)
[2019-01-19] MEDS: HEPARIN SODIUM,PORCINE 5,000 UNIT/ML 1 ML VIAL SQ SCH ×2 (09:01→15:17)
[2019-01-19 09:15] LABS: ALT 20 U/L (21-72); AST 21 U/L (17-59); African American GFR (CKD) >90 (>60 ml/min/1.73 sqM); Albumin 3.6 g/dL (3.5-5.0); Alkaline Phosphatase 49 U/L (38-126); Anion Gap 10 mmol/L; Blood Urea Nitrogen 16 mg/dL (9-20); Calcium 8.6 mg/dL (8.4-10.2); Carbon Dioxide 24 mmol/L (22-30); Chloride 106 mmol/L (98-107); Glucose 96 mg/dL (74-99); Potassium 3.9 mmol/L (3.5-5.1); Sodium 140 mmol/L (137-145); Total Bilirubin 0.7 mg/dL (0.2-1.3); Total Protein 6.3 g/dL (6.3-8.2)
--- NOTE | 2019-01-19 11:51 | P.CNOR ---
History of Present Illness - [facility] Consult date: 01/19/19 Requesting physician: Randall Perez Consult reason: back pain (Intractable low back pain) History of present illness: Patient is a very pleasant 83-year-old male who is seen and examined at bedside for further evaluation for intractable low back pain. He denies any recent fall s or injuries. He states over the past several days his back pain has been significantly worsening. He presented to the emergency department on 01/16/2019, for further evaluation regards to his back pain. X-rays were taken at that time. Patient states he was discharged home. His symptoms have not had any improvement and continue to worsen. His pain is better controlled while at rest. His has difficulty in ambulation due to low back pain. He presented back to the emergency department yesterday for further evaluation. Due to multiple presentations along with findings of urinary tract infection, he was admitted for further evaluation. Patient is currently receiving Rocephin for urinary tract infection. He states during the exacerbation of back pain and does experience pain into the bilateral buttocks. He also occasionally has some pain radiating down the leg. He states he is known to have pain in the bilateral feet. He denies any previous surgical intervention of his lumbar spine. He states given his age he does not wish to discuss the possibility of any surgical intervention at his lumbar spine. He denies previous consultation with pain management. CT of the lumbar spine was performed during his admission through the emergency department. Patient has a history of hypertension, hyperlipidemia, and coronary artery disease status post CABG. Past Medical History Past Medical History: Coronary Artery Disease (CAD), Chest Pain / Angina, GERD/Reflux, Hyperlipidemia, Hypertension Additional Past Medical History / Comment(s): hemorrhoids History of Any Multi-Drug Resistant Organisms: None Reported Past Surgical History: Coronary Bypass/CABG, Heart Catheterization, Heart Catheterization With Stent, Tonsillectomy Additional Past Surgical History / Comment(s): CABG-QUADRUPLE 1997, 2007 HEART CATH, 07-19-17 heart cath w/ angioplsty/stents. CATARACT WITH LENS IMPLANT 2007 (TORIC-ACRYSOF) .colonoscopy Past Anesthesia/Blood Transfusion Reactions: No Reported Reaction Additional Past Anesthesia/Blood Transfusion Reaction / Comm: pt stated he received blood in past-no reaction to it. Date of Last Stent Placement:: 2014 Past Psychological History: Anxiety Smoking Status: Former smoker Past Alcohol Use History: None Reported Past Drug Use History: None Reported - Past Family History Mother Family Medical History: Pneumonia Additional Family Medical History / Comment(s): from pne Father Family Medical History: Pneumonia Additional Family Medical History / Comment(s): from pne Brother(s) Family Medical History: Cancer Additional Family Medical History / Comment(s): THROAT CA Medications and Allergies Home Medications Medication Instructions Recorded Confirmed Type Omeprazole [PriLOSEC] 20 mg PO DAILY 07/14/14 01/18/19 History Atorvastatin [Lipitor] 40 mg PO DAILY #30 tab 07/19/14 01/18/19 Rx Metoprolol Succinate [Toprol Xl] 50 mg PO DAILY 12/18/17 01/18/19 History Escitalopram [Lexapro] 10 mg PO DAILY tab 12/21/17 01/18/19 Rx Tamsulosin [Flomax] 0.4 mg PO PC-SUPPER #90 cap.er.24h 12/21/17 01/18/19 Rx Ibuprofen [Motrin] 600 mg PO Q6HR PRN 01/16/19 01/18/19 History LORazepam [Ativan] 1 mg PO BID PRN 01/16/19 01/18/19 History Oxybutynin Chloride [Oxybutynin 15 mg PO DAILY 01/16/19 01/18/19 History Chloride ER] Allergies Allergy/AdvReac Type Severity Reaction Status Date / Time No Known Allergies Allergy Verified 01/18/19 13:47 Physical Examination Physical exam: Patient is awake, alert, and oriented 3 Vital signs stable Good chest excursion with deep inspiration and expiration Examination of lumbar spine reveals skin is intact with no abrasions, lacerations, or bruises; no erythema, purulence or signs of infection No significant pain on palpation over the lumbar spine Dorsiflexion, plantarflexion, and extensor hallucis longus positive sustained bilaterally Lower extremity strength 5/5 bilaterally Patient is able to move legs independently without significant difficulty bilaterally Patellar reflex 0+ bilaterally No lower extremity hyperreflexia bilaterally Straight leg test negative bilateral lower extremities No signs or symptoms of DVT; no calf pain No pain with internal and external rotation of the hips bilaterally Neurovascularly intact Results Pertinent studies: CT the lumbar spine: L2-3 vacuum disc phenomenon and diffuse disc bulging resulting in mild spinal canal stenosis and bilateral neural foraminal narrowing; L3-4 vacuum disc and inferior endplate L3 osteolytic process likely degenerative along with mild spinal canal stenosis and moderate right severe left neural foraminal stenosis; L4-5 grade 1 spondylolisthesis, disc bulge, facet degeneration, and ligament of flavum hypertrophy resulting in moderate spinal canal stenosis and severe bilateral neural foraminal stenosis; L5-S1 diffuse disc bulge, facet arthropathy resulting in moderate bilateral neural foraminal stenosis greater on the left - Labs Labs: Abnormal Lab Results - Last 24 Hours (Table) 01/18/19 01/18/19 01/18/19 Range/Units 15:17 15:17 15:17 Plt Count 131 L (150-450) k/uL Lymphocytes # (1.0-4.8) k/uL ALT 19 L (21-72) U/L Urine Protein Trace H (Negative) Urine Ketones 2+ H (Negative) Urine Blood Trace H (Negative) Ur Leukocyte Esterase Large H (Negative) Urine WBC 60 H (0-5) /hpf Urine WBC Clumps Moderate H (None) /hpf Urine Bacteria Many H (None) /hpf Urine Mucus Occasional H (None) /hpf 01/19/19 Range/Units 08:16 Plt Count 145 L (150-450) k/uL Lymphocytes # 0.8 L (1.0-4.8) k/uL ALT (21-72) U/L Urine Protein (Negative) Urine Ketones (Negative) Urine Blood (Negative) Ur Leukocyte Esterase (Negative) Urine WBC (0-5) /hpf Urine WBC Clumps (None) /hpf Urine Bacteria (None) /hpf Urine Mucus (None) /hpf Microbiology - Last 24 Hours (Table) 01/18/19 15:17 Urine Culture - Preliminary Urine,Voided H & H 01/18/19 01/19/19 Range/Units 15:17 08:16 Hgb 14.4 14.6 (13.0-17.5) gm/dL Hct 43.4 44.8 (39.0-53.0) % Result Diagrams: 01/19/19 08:16 01/19/19 08:16 Assessment and Plan Assessment: Assessment: Intractable low back pain Difficulty ambulation due to back pain Lower extremity radiculopathy Lumbar degenerative disc disease, disc bulge, facet arthropathy, and spinal canal stenosis Urinary tract infection currently on Rocephin History of hypertension, hyperlipidemia, and coronary artery disease status post CABG (1) Intractable low back pain Current Visit: Yes Status: Acute Code(s): M54.5 - LOW BACK PAIN SNOMED Code(s): 72555944361534563 (2) Lumbar stenosis Current Visit: Yes Status: Acute Code(s): M48.061 - SPINAL STENOSIS, LUMBAR REGION WITHOUT NEUROGENIC NIRU SNOMED Code(s): 85081366 (3) Lumbar degenerative disc disease Current Visit: Yes Status: Acute Code(s): M51.36 - OTHER INTERVERTEBRAL DISC DEGENERATION, LUMBAR REGION SNOMED Code(s): 45914985 (4) Lumbar facet arthropathy Current Visit: Yes Status: Acute Code(s): M47.816 - SPONDYLOSIS W/O MYELOPATHY OR RADICULOPATHY, LUMBAR REGION SNOMED Code(s): 266325403 (5) History of hypertension Current Visit: Yes Status: Acute Code(s): Z86.79 - PERSONAL HISTORY OF OTHER DISEASES OF THE CIRCULATORY SYSTEM SNOMED Code(s): 901622733 (6) History of hyperlipidemia Current Visit: Yes Status: Acute Code(s): Z86.39 - PERSONAL HISTORY OF ENDO, NUTRITIONAL AND METABOLIC DISEASE SNOMED Code(s): 888463793 (7) History of coronary artery disease Current Visit: Yes Status: Acute Code(s): Z86.79 - PERSONAL HISTORY OF OTHER DISEASES OF THE CIRCULATORY SYSTEM SNOMED Code(s): 798201777 (8) History of coronary artery bypass graft Current Visit: Yes Status: Acute Code(s): Z95.1 - PRESENCE OF AORTOCORONARY BYPASS GRAFT SNOMED Code(s): 473417552 (9) UTI (urinary tract infection) Current Visit: Yes Status: Acute Code(s): N39.0 - URINARY TRACT INFECTION, SITE NOT SPECIFIED SNOMED Code(s): 73959535 (10) Unable to ambulate Current Visit: Yes Status: Acute Code(s): R26.2 - DIFFICULTY IN WALKING, NOT ELSEWHERE CLASSIFIED SNOMED Code(s): 715859216 Plan: Plan: 1. After physical examination of the patient, reviewing of imaging, and further discussion with the patient, we are currently planning continue conservative treatment. He does have evidence of significant degenerative changes spinal canal stenosis, degenerative disc disease, and facet degeneration. We discussed surgical intervention would be quite significant based on his degenerative changes. Given his age patient does not wish to discuss the possibility of surgical intervention. He would like to avoid all surgical intervention. He has not consulted with pain management but does feel this is a good plan of care. We will plan for consultation with pain management for further evaluation discuss possible treatment options. At this time, patient will be cleared for discharge from orthopedic spine standpoint. We recommend exhausting all conservative treatment options. We will plan outpatient follow-up in the outpatient setting approximately 2-3 weeks for further evaluation. If his symptoms are not improving at that time, we may plan for other treatment mod alities while avoiding surgical intervention. 2. Patient will continue to be seen examined by medicine for his other medical diagnoses include urinary tract infection Time with Patient: Greater than 30 (Including obtaining history, physical examination, reviewing of imaging, and dictation.)
--- NOTE | 2019-01-19 14:46 | P.PN ---
Subjective Progress Note Date: 01/19/19 Patient seen and examined at bedside in follow-up, reported some improved pain control with [place]. Plan is for physical therapy to get him up and ambulate him today. Apparently patient wants to go to [facility], patient seen by orthopedic service recommended conservative management at this time, lumbar CT reviewed indicating moderate spinal canal stenosis and bilateral neural foraminal stenosis due to grade 1 anterolisthesis of L4-L5 Objective - Vital Signs Vital signs: Vital Signs Temp 97.2 F L 01/19/19 14:17 Pulse 63 01/19/19 14:17 Resp 16 01/19/19 14:17 BP 145/68 01/19/19 14:17 Pulse Ox 94 L 01/19/19 14:17 Intake & Output 01/18/19 01/19/19 01/19/19 18:59 06:59 18:59 Intake Total 200 Balance 200 Weight 90.265 kg Intake: Oral 200 Other: Voiding Method Urinal Urinal Diaper Diaper # Voids 1 2 # Bowel Movements 1 0 - Exam Constitutional: No acute distress, conversant, pleasant Eyes: Anicteric sclerae, moist conjunctiva, no lid-lag, PERRLA ENMT: NC/AT,Oropharynx clear, no erythema, exudates Neck:Supple, FROM, no masses, or JVD, No carotid bruits; No thyromegaly Lungs: Clear to auscultation, Clear to percussion, Normal respiratory effort, no accessory muscle use Cardiovascular: Heart regular in rate and rhythm, No murmurs, gallops, or rubs no peripheral edema Abdominal: Soft Nontender, nom distended, no guarding, no rebound or rigidity, Normoactive bowel sounds No hepatomegaly, No splenomegaly, No palpable mass No abdominal wall hernia noted Skin: Normal temperature, tone, texture, turgor, No induration No subcutaneous nodules, No rash, lesions, No ulcers Extremities: Moving legs independently, most significant pain on palpation of lumbar spine, dorsiflexion plantar flexion and EHL positive bilaterally Psychiatric: Alert and oriented to person, place and time, Appropriate affect Intact judgement Neuro: Muscles Strength 5/5 in all 4 extremities, Sensation to light touch grossly present throughout, Cranial nerves II-XII grossly intact. No focal sensory deficits - Labs CBC & Chem 7: 01/19/19 08:16 01/19/19 08:16 Labs: Abnormal Lab Results - Last 24 Hours (Table) 01/18/19 01/18/19 01/18/19 Range/Units 15:17 15:17 15:17 Plt Count 131 L (150-450) k/uL Lymphocytes # (1.0-4.8) k/uL Creatinine (0.66-1.25) mg/dL ALT 19 L (21-72) U/L Urine Protein Trace H (Negative) Urine Ketones 2+ H (Negative) Urine Blood Trace H (Negative) Ur Leukocyte Esterase Large H (Negative) Urine WBC 60 H (0-5) /hpf Urine WBC Clumps Moderate H (None) /hpf Urine Bacteria Many H (None) /hpf Urine Mucus Occasional H (None) /hpf 01/19/19 01/19/19 Range/Units 08:16 08:16 Plt Count 145 L (150-450) k/uL Lymphocytes # 0.8 L (1.0-4.8) k/uL Creatinine 0.65 L (0.66-1.25) mg/dL ALT 20 L (21-72) U/L Urine Protein (Negative) Urine Ketones (Negative) Urine Blood (Negative) Ur Leukocyte Esterase (Negative) Urine WBC (0-5) /hpf Urine WBC Clumps (None) /hpf Urine Bacteria (None) /hpf Urine Mucus (None) /hpf Microbiology - Last 24 Hours (Table) 01/18/19 15:17 Urine Culture - Preliminary Urine,Voided Assessment and Plan (1) Intractable low back pain Narrative/Plan: * Secondary to lumbar DJD, DDD with spinal canal stenosis and neural foraminal stenosis * Continue current pain management with [place] * Consult anesthesia to evaluate for possible lumbar injections * Patient already seen by orthopedic service recommending conservative management at this time Current Visit: Yes Status: Acute Code(s): M54.5 - LOW BACK PAIN SNOMED Code(s): 88315638071611136 (2) Degenerative joint disease (DJD) of lumbar spine Current Visit: Yes Status: Acute Code(s): M47.816 - SPONDYLOSIS W/O MYELOPATHY OR RADICULOPATHY, LUMBAR REGION SNOMED Code(s): 462400934 (3) Lumbar facet arthropathy Current Visit: Yes Status: Acute Code(s): M47.816 - SPONDYLOSIS W/O M YELOPATHY OR RADICULOPATHY, LUMBAR REGION SNOMED Code(s): 151583606 (4) Lumbar stenosis Current Visit: Yes Status: Acute Code(s): M48.061 - SPINAL STENOSIS, LUMBAR REGION WITHOUT NEUROGENIC NIRU SNOMED Code(s): 22683501 (5) Essential hypertension Narrative/Plan: * Blood pressure elevated * Continue home regimen will add hydrochlorothiazide to his antihypertensive regimen Current Visit: Yes Status: Acute Code(s): I10 - ESSENTIAL (PRIMARY) HYPERTENSION SNOMED Code(s): 17521453 Plan: * PT has been consulted to see the patient * Patient elected to go tomorrow would will need to 3 midnight stay * Anticipated discharge on
[2019-01-19] MEDS: TAMSULOSIN 0.4 MG CAP.ER.24H PO SCH (17:34)
[2019-01-19] MEDS: LORazepam 1 MG TAB PO PRN (19:58)
[2019-01-20] MEDS: HEPARIN SODIUM,PORCINE 5,000 UNIT/ML 1 ML VIAL SQ SCH ×3 (00:10→17:20)
[2019-01-20] MEDS: ATORVASTATIN 40 MG TAB PO SCH (08:25)
[2019-01-20] MEDS: METOPROLOL SUCCINATE (ER) 50 MG TAB.ER.24H PO SCH (08:25)
[2019-01-20] MEDS: PANTOPRAZOLE 40 MG TABLET PO SCH (08:25)
[2019-01-20] MEDS: HYDROCHLOROTHIAZIDE 25 MG TAB PO SCH (08:25)
[2019-01-20] MEDS: ESCITALOPRAM 10 MG TAB PO SCH (08:25)
[2019-01-20] MEDS: LORazepam 1 MG TAB PO PRN ×2 (08:26→19:42)
[2019-01-20] MEDS: OXYBUTYNIN 15 MG TAB.ER.24 PO SCH (08:26)
--- NOTE | 2019-01-20 09:18 | P.PN ---
Progress Note - Text Progress Note Date: 01/20/19 Patient is seen and examined today at bedside. I agree with notation of the consultation done yesterday. Patient does not have any new complaints. He says he is trying to mobilize better with physical therapy. He feels his back symptoms have mildly improved but he still having soreness in his lower back across the top his buttocks. He is not having any weakness in his lower extremities. Exacerbation of degenerative disease lumbar spine Difficulty with ambulation The patient has acute on chronic low back pain and some difficulty with ambulation but is not having specific radiculopathy or weakness at this point. I think it is okay for him to try to continue to mobilize with his physical therapy and likely go over to residential once he is stable from medicine standpoint. We don't have any acute surgical plans for him at this point and can follow-up on an outpatient basis. I discussed this with him and answered his questions and he is agreeable.
--- NOTE | 2019-01-20 14:32 | P.PN ---
Subjective Progress Note Date: 01/20/19 Patient seen and examined at bedside in follow-up, reported some improved pain control with [place]. Patient has been up and ambulatory down the mon and back with his walker with physical therapy. Apparently patient wants to go to [facility], patient seen by orthopedic service recommended conservative management at this time, lumbar CT reviewed indicating moderate spinal canal stenosis and bilateral neural foraminal stenosis due to grade 1 anterolisthesis of L4-L5 Objective - Vital Signs Vital signs: Vital Signs Temp 97.9 F 01/20/19 04:15 Pulse 81 01/20/19 04:15 Resp 20 01/20/19 04:15 BP 185/96 01/20/19 04:15 Pulse Ox 97 01/20/19 04:15 Intake & Output 01/19/19 01/20/19 01/20/19 18:59 06:59 18:59 Intake Total 300 240 Output Total 150 Balance 300 90 Intake: Oral 300 240 Output: Urine 150 Other: Voiding Method Urinal Urinal Urinal Diaper Diaper Diaper # Voids 2 3 # Bowel Movements 0 0 - Exam Constitutional: No acute distress, conversant, pleasant Eyes: Anicteric sclerae, moist conjunctiva, no lid-lag, PERRLA ENMT: NC/AT,Oropharynx clear, no erythema, exudates Neck:Supple, FROM, no masses, or JVD, No carotid bruits; No thyromegaly Lungs: Clear to auscultation, Clear to percussion, Normal respiratory effort, no accessory muscle use Cardiovascular: Heart regular in rate and rhythm, No murmurs, gallops, or rubs no peripheral edema Abdominal: Soft Nontender, nom distended, no guarding, no rebound or rigidity, Normoactive bowel sounds No hepatomegaly, No splenomegaly, No palpable mass No abdominal wall hernia noted Skin: Normal temperature, tone, texture, turgor, No induration No subcutaneous nodules, No rash, lesions, No ulcers Extremities: Moving legs independently, most significant pain on palpation of lumbar spine, dorsiflexion plantar flexion and EHL positive bilaterally Psychiatric: Alert and oriented to person, place and time, Appropriate affect Intact judgement Neuro: Muscles Strength 5/5 in all 4 extremities, Sensation to light touch grossly present throughout, Cranial nerves II-XII grossly intact. No focal sensory deficits - Labs CBC & Chem 7: 01/19/19 08:16 01/19/19 08:16 Labs: Microbiology - Last 24 Hours (Table) 01/18/19 18:25 Blood Culture - Preliminary Blood No Growth after 24 hours 01/18/19 15:17 Urine Culture - Preliminary Urine,Voided Gram Neg Bacilli Assessment and Plan (1) Intractable low back pain Narrative/Plan: * Secondary to lumbar DJD, DDD with spinal canal stenosis and neural foraminal stenosis * Continue current pain management with [place] * Consult anesthesia to evaluate for possible lumbar injections * Patient already seen by orthopedic service recommending conservative management at this time Current Visit: Yes Status: Acute Code(s): M54.5 - LOW BACK PAIN SNOMED Code(s): 03662370924788363 (2) Degenerative joint disease (DJD) of lumbar spine Current Visit: Yes Status: Acute Code(s): M47.816 - SPONDYLOSIS W/O MYELOPATHY OR RADICULOPATHY, LUMBAR REGION SNOMED Code(s): 522132492 (3) Lumbar facet arthropathy Current Visit: Yes Status: Acute Code(s): M47.816 - SPONDYLOSIS W/O MYELOPATHY OR RADICULOPATHY, LUMBAR REGION SNOMED Code(s): 501447084 (4) Lumbar stenosis Current Visit: Yes Status: Acute Code(s): M48.061 - SPINAL STENOSIS, LUMBAR REGION WITHOUT NEUROGENIC NIRU SNOMED Code(s): 60571907 (5) Essential hypertension Narrative/Plan: * Blood pressure elevated * Continue home regimen will add hydrochlorothiazide to his antihypertensive regimen Current Visit: Yes Status: Acute Code(s): I10 - ESSENTIAL (PRIMARY) HYPERTENSION SNOMED Code(s): 31792200 Plan: * PT has been consulted to see the patient * Patient elected to go tomorrow would will need to 3 midnight stay * Anticipated discharge on Friday
--- NOTE | 2019-01-20 16:09 | P.PAINCN ---
History of Present Illness - Reason for Consult Consult date: 01/20/19 - History of Present Illness Chief complaint: Low back and buttock pain HPI: Mr. Villanueva is a 83-year-old male with cardiac disease who presented recently for uncontrolled back pain. He was admitted for this and now his pain is under better control with [place] every 4 hours when necessary. Anesthesia pain was consulted for possible interventions, while inpatient. However at this time his pain is controlled. He was able to ambulate although with some difficulty, earlier today. Otherwise he is happy with his current pain control. He described his pain on the bilateral low back area near the beltline radiating down her posterior thighs. This has been worsening recently Past Medical History Past Medical History: Coronary Artery Disease (CAD), Chest Pain / Angina, GERD/Reflux, Hyperlipidemia, Hypertension Additional Past Medical History / Comment(s): hemorrhoids History of Any Multi-Drug Resistant Organisms: None Reported Past Surgical History: Coronary Bypass/CABG, Heart Catheterization, Heart Catheterization With Stent, Tonsillectomy Additional Past Surgical History / Comment(s): CABG-QUADRUPLE 1997, 2007 HEART CATH, 07-19-17 heart cath w/ angioplsty/stents. CATARACT WITH LENS IMPLANT 2007 (TORIC-ACRYSOF) .colonoscopy Past Anesthesia/Blood Transfusion Reactions: No Reported Reaction Additional Past Anesthesia/Blood Transfusion Reaction / Comm: pt stated he received blood in past-no reaction to it. Date of Last Stent Placement:: 2014 Past Psychological History: Anxiety Smoking Status: Former smoker Past Alcohol Use History: None Reported Past Drug Use History: None Reported - Past Family History Mother Family Medical History: Pneumonia Additional Family Medical History / Comment(s): from pne Father Family Medical History: Pneumonia Additional Family Medical History / Comment(s): from pne Brother(s) Family Medical History: Cancer Additional Family Medical History / Comment(s): THROAT CA Medications and Allergies Home Medications Medication Instructions Recorded Confirmed Type Omeprazole [PriLOSEC] 20 mg PO DAILY 07/14/14 01/18/19 History Atorvastatin [Lipitor] 40 mg PO DAILY #30 tab 07/19/14 01/18/19 Rx Metoprolol Succinate [Toprol Xl] 50 mg PO DAILY 12/18/17 01/18/19 History Escitalopram [Lexapro] 10 mg PO DAILY tab 12/21/17 01/18/19 Rx Tamsulosin [Flomax] 0.4 mg PO PC-SUPPER #90 cap.er.24h 12/21/17 01/18/19 Rx Ibuprofen [Motrin] 600 mg PO Q6HR PRN 01/16/19 01/18/19 History LORazepam [Ativan] 1 mg PO BID PRN 01/16/19 01/18/19 History Oxybutynin Chloride [Oxybutynin 15 mg PO DAILY 01/16/19 01/18/19 History Chloride ER] Allergies Allergy/AdvReac Type Severity Reaction Status Date / Time No Known Allergies Allergy Verified 01/18/19 13:47 Physical Exam Vitals: Vital Signs Temp Pulse Resp BP BP Pulse Ox 01/20/19 14:37 97.2 F L 72 18 149/61 96 01/20/19 04:15 97.9 F 81 20 185/96 97 01/19/19 21:40 98.2 F 78 20 172/76 95 Intake and Output 01/20/19 01/20/19 01/20/19 06:59 14:59 22:59 Intake Total 100 480 Output Total 150 Balance 100 330 Intake: Oral 100 480 Output: Urine 150 Other: Voiding Method Urinal Urinal Diaper Diaper # Voids 3 2 # Bowel Movements 0 On physical exam this is a pleasant male laying in bed. He was in no acute distress He was hard of hearing. He had full strength in the upper and lower extremities. Exam was slightly limited as he was unable to get out of bed. He did have tenderness to palpation in his bilateral PSIS Results CBC & Chem 7: 01/19/19 08:16 01/19/19 08:16 Labs: Microbiology - Last 24 Hours (Table) 01/18/19 18:25 Blood Culture - Preliminary Blood No Growth after 24 hours 01/18/19 15:17 Urine Culture - Preliminary Urine,Voided Gram Neg Bacilli Assessment and Plan Plan: Patient is a 83-year-old male with back pain, no controlled. His pain starts in the belt line and radiates down his posterior thighs. He does have pain on his PSIS. This given his constellation of symptoms is most likely source of pain is his sacroiliac joint. 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 He is happy with his pain control and will be able to go home on it. In terms of the etiology of his pain we could offer SI joint injections. However we would like to see him in clinic to do further assessment prior to proceeding with any injection therapy. Also she participated in physical therapy before undergoing more invasive therapy. We will schedule him for follow-up in our clinic , PQRS Measure Charge Sheet PQRS Narrative: Smoking Status Former smoker Do You Want the Pneumonia No Vaccine AT THIS TIME? Blood Pressure [Right Arm] 149/61 Blood Pressure [Left Arm 185/96 Supine] Blood Pressure 149/58 Pain Intensity [Back] 3 Pain Intensity [None] 0 Pain Intensity 0 Pain Scale Used Numeric (1 - 10) Scale Used Numeric (1 - 10) Home Medications: Ambulatory Orders Omeprazole [PriLOSEC] 20 mg PO DAILY 07/14/14 Atorvastatin [Lipitor] 40 mg PO DAILY #30 tab 07/19/14 Metoprolol Succinate [Toprol Xl] 50 mg PO DAILY 12/18/17 Escitalopram [Lexapro] 10 mg PO DAILY tab 12/21/17 Tamsulosin [Flomax] 0.4 mg PO PC-SUPPER #90 cap.er.24h 12/21/17 Ibuprofen [Motrin] 600 mg PO Q6HR PRN 01/16/19 LORazepam [Ativan] 1 mg PO BID PRN 01/16/19 Oxybutynin Chloride [Oxybutynin Chloride ER] 15 mg PO DAILY 01/16/19
[2019-01-20] MEDS: TAMSULOSIN 0.4 MG CAP.ER.24H PO SCH (17:20)
[2019-01-20] MEDS ORDERED: LIDOCAINE-PRILOCAINE 2.5-2.5% CREAM 5 GM TUBE TOPICAL PRN (21:44)
[2019-01-20] MEDS: ACETAMINOPHEN TAB 325 MG TAB PO PRN (21:53)
[2019-01-21] MEDS: HEPARIN SODIUM,PORCINE 5,000 UNIT/ML 1 ML VIAL SQ SCH ×3 (01:12→17:37)
[2019-01-21] MEDS: ATORVASTATIN 40 MG TAB PO SCH (08:48)
[2019-01-21] MEDS: ESCITALOPRAM 10 MG TAB PO SCH (08:48)
[2019-01-21] MEDS: PANTOPRAZOLE 40 MG TABLET PO SCH (08:48)
[2019-01-21] MEDS: LISINOPRIL 20 MG TAB PO SCH (08:49)
[2019-01-21] MEDS: METOPROLOL SUCCINATE (ER) 50 MG TAB.ER.24H PO SCH (08:49)
[2019-01-21] MEDS: HYDROCHLOROTHIAZIDE 25 MG TAB PO SCH (08:49)
[2019-01-21] MEDS: OXYBUTYNIN 15 MG TAB.ER.24 PO SCH (08:53)
[2019-01-21] MEDS: ACETAMINOPHEN TAB 325 MG TAB PO PRN (09:00)
[2019-01-21] MEDS: LORazepam 1 MG TAB PO PRN (09:00)
--- NOTE | 2019-01-21 14:15 | P.PN ---
Subjective Progress Note Date: 01/21/19 Principal diagnosis: Back pain Patient is still having some back pain leonel. with movement. He got some tylenol this am. No norco given today. Objective - Vital Signs Vital signs: Vital Signs Temp 97.5 F L 01/21/19 07:00 Pulse 71 01/21/19 07:00 Resp 15 01/21/19 07:00 BP 153/81 01/21/19 07:00 Pulse Ox 92 L 01/21/19 07:00 Intake & Output 01/20/19 01/21/19 01/21/19 18:59 06:59 18:59 Intake Total 480 100 Output Total 150 Balance 330 100 Intake: Oral 480 100 Output: Urine 150 Other: Voiding Method Urinal Urinal Diaper Diaper # Voids 2 1 2 # Bowel Movements 0 - Exam Constitutional: No acute distress, conversant, pleasant Eyes:Anicteric sclerae, moist conjunctiva, no lid-lag, PERRLA, ENMT: Oropharynx clear, no erythema, exudates Neck: Supple, FROM, no masses, or JVD, No carotid bruits, No thyromegaly Lungs: Clear to auscultation, Clear to percussion, Normal respiratory effort, no accessory muscle use Cardiovascular: Heart regular in rate and rhythm, No murmurs, gallops, or rubs, No peripheral edema Abdominal: Soft, Nontender, no guarding, rebound or rigidity, Normoactive bowel sounds, No hepatomegaly, No splenomegaly, No palpable mass Skin: Normal temperature, tone, texture, turgor, no induration, No subcutaneous nodules, No rash, lesions, No ulcers Extremities: No digital cyanosis, No clubbing, Pedal pulses intact and symmetrical, Radial pulses intact and symmetrical, No calf tenderness Psychiatric: Alert and oriented to person, place and time, appropriate affect, intact judgement Neuro: Muscles Strength 5/5 in all 4 extremities, Sensation to light touch grossly present throughout, Cranial nerves II-XII grossly intact, no focal sensory deficits - Labs CBC & Chem 7: 01/19/19 08:16 01/19/19 08:16 Labs: Microbiology - Last 24 Hours (Table) 01/18/19 18:25 Blood Culture - Preliminary Blood No Growth after 48 hours 01/18/19 15:17 Urine Culture - Final Urine,Voided Escherichia coli Assessment and Plan Plan: (1) Intractable low back pain, Degenerative joint disease (DJD) of lumbar spine, Lumbar facet arthropathy * Secondary to lumbar DJD, DDD with spinal canal stenosis and neural foraminal stenosis * Continue current pain management with [place] * Seen by anesthesia for possible lumbar injections--will follow up outpatient * Patient already seen by orthopedic service recommending conservative management at this time (2) UTI Ceftriaxone 1gm IV daily. Growing E.coli sensitive to 3rd generation cephalosporin. (3) Essential hypertension Stable Anticipated discharge to [facility] on Friday
[2019-01-21] MEDS: TAMSULOSIN 0.4 MG CAP.ER.24H PO SCH (17:37)
[2019-01-21 23:13] VITALS: RESP 20
[2019-01-22] MEDS: HEPARIN SODIUM,PORCINE 5,000 UNIT/ML 1 ML VIAL SQ SCH ×3 (00:02→07:42)
[2019-01-22 05:16] VITALS: BP 183/92; PULSE 77; TEMP 97
[2019-01-22] MEDS: LORazepam 1 MG TAB PO PRN (07:41)
[2019-01-22] MEDS: ESCITALOPRAM 10 MG TAB PO SCH (07:41)
[2019-01-22] MEDS: HYDROCHLOROTHIAZIDE 25 MG TAB PO SCH (07:41)
[2019-01-22] MEDS: METOPROLOL SUCCINATE (ER) 50 MG TAB.ER.24H PO SCH (07:41)
[2019-01-22] MEDS: PANTOPRAZOLE 40 MG TABLET PO SCH (07:41)
[2019-01-22] MEDS: LISINOPRIL 20 MG TAB PO SCH (07:41)
[2019-01-22] MEDS: ACETAMINOPHEN TAB 325 MG TAB PO PRN (07:42)
[2019-01-22] MEDS: ATORVASTATIN 40 MG TAB PO SCH (07:42)
[2019-01-22] MEDS: OXYBUTYNIN 15 MG TAB.ER.24 PO SCH (07:46)
--- NOTE | 2019-01-22 08:52 | P.DS ---
Providers Date of admission: 01/19/19 13:34 Expected date of discharge: 01/22/19 Attending physician: Mary Mahoney MD Consults: 01/18/19 17:25 Consult Physician Routine Consulting Provider: Juvencio Clifford Consult Reason/Comments: Lumbar back pain, intractable pain Do you want consulting provider notified?: Yes 01/19/19 09:03 Consult to Anesthesia Stat Consulting Provider: Anesthesia,Services Consult Reason/Comments: back pain, possible steroid injection to lumbar spine Primary care physician: [facility] Course: 83-year-old male with history of chronic low back pain, CAD status post CABG, hypertension who presented to the hospital due to low back pain. It started 4 weeks ago described as sharp pain over his lower back, nonradiating, 8 out of 10 in severity, gets worse when he tries to ambulate or get up, radiate to his buttock. On admission he was unable to get out of bed without using the walker. He reports that on Friday he came to the ED where x-rays were done and then he was released home. Patient reports no saddle numbness or tingling no weakness in bilateral lower extremities no numbness and tingling in bilateral lower extremities, he denies any stool incontinence or urine incontinence. However he reports that on Friday he felt the urge to go to the bathroom however he was unable to get up and time to get to the bathroom and then ended up soiling his bed. Patient denies any trauma to his back. Patient denies any fevers or chills denies any abdominal pain denies any nausea vomiting. Denies any chest pain or trouble breathing In the ED imaging suggested degenerative joint disease. Urine analysis was positive patient has history of recurrent UTI. Patient was admitted for treatment of urinary tract infection and evaluation by orthopedics. He was started on ceftriaxone for UTI treatment. Urine cx grew Escherichia coli sensitive to ceftriaxone. He was also seen by Dr. Clifford from orthopedics and Dr. Bustos from pain management. No surgical intervention was advised by Ortho and no back injection was advised either by pain management. Patient's pain was controlled with Tylenol, [place]. He was evaluated and treated by physical therapy who referred him to rehabilitation. Care management referred him to [facility] for rehab. Today he will be discharged to [facility] in a stable condition. UTI was treated for 10 days. Time for discharge 35 minutes. Patient Condition at Discharge: Fair Plan - Discharge Summary New Discharge Prescriptions: New HYDROcodone/APAP 5-325MG [[place] 5-325] 1 each PO Q4HR PRN #14 tab PRN Reason: Moderate Pain Cefdinir [Omnicef] 300 mg PO Q12HR 10 Days #20 capsule Continue Omeprazole [PriLOSEC] 20 mg PO DAILY Atorvastatin [Lipitor] 40 mg PO DAILY #30 tab Metoprolol Succinate [Toprol Xl] 50 mg PO DAILY Escitalopram [Lexapro] 10 mg PO DAILY tab Tamsulosin [Flomax] 0.4 mg PO PC-SUPPER #90 cap.er.24h Oxybutynin Chloride [Oxybutynin Chloride ER] 15 mg PO DAILY Ibuprofen [Motrin] 600 mg PO Q6HR PRN PRN Reason: Pain LORazepam [Ativan] 1 mg PO BID PRN 5 Days #10 tablet PRN Reason: Anxiety Discharge Medication List Omeprazole [PriLOSEC] 20 mg PO DAILY 07/14/14 [History] Atorvastatin [Lipitor] 40 mg PO DAILY #30 tab 07/19/14 [Rx] Metoprolol Succinate [Toprol Xl] 50 mg PO DAILY 12/18/17 [History] Escitalopram [Lexapro] 10 mg PO DAILY tab 12/21/17 [Rx] Tamsulosin [Flomax] 0.4 mg PO PC-SUPPER #90 cap.er.24h 12/21/17 [Rx] Ibuprofen [Motrin] 600 mg PO Q6HR PRN 01/16/19 [History] Oxybutynin Chloride [Oxybutynin Chloride ER] 15 mg PO DAILY 01/16/19 [History] Cefdinir [Omnicef] 300 mg PO Q12HR 10 Days #20 capsule 01/22/19 [Rx] HYDROcodone/APAP 5-325MG [[place] 5-325] 1 each PO Q4HR PRN #14 tab 01/22/19 [Rx] LORazepam [Ativan] 1 mg PO BID PRN 5 Days #10 tablet 01/22/19 [Rx] Follow up Appointment(s)/Referral(s): Vicente Loomis MD [Primary Care Provider] - 1-2 days Rah Arroyo PAC [PHYSICIAN PROFESSOR OF ARCHAEOLOGY] - 2 Weeks (Patient may follow-up with Rah Arroyo PA-C or Dr. Laron Clifford at [facility] in 2-3 weeks following discharge. )
== END 2019-01-22 14:48 | DRG 552 ==
LOC: EC 13:37 → 4MS4W 18:02 → INTOOBSV 18:02 → 4MS4W 19:43 → OBSVTOIN 01-19 13:34
PROVIDERS: ADMIT Family Medicine; ATTEND Family Medicine
DX: M51.36 Other intervertebral disc degeneration, lumbar region (principal); N39.0 Urinary tract infection, site not specified; M48.061 Spinal stenosis, lumbar region without neurogenic claudication; B96.20 Unspecified Escherichia coli [E. coli] as the cause of diseases classified elsewhere; D69.6 Thrombocytopenia, unspecified; E78.5 Hyperlipidemia, unspecified; F41.9 Anxiety disorder, unspecified; G89.29 Other chronic pain; I10 Essential (primary) hypertension; I25.10 Atherosclerotic heart disease of native coronary artery without angina pectoris; K21.9 Gastro-esophageal reflux disease without esophagitis; Z79.899 Other long term (current) drug therapy; Z80.8 Family history of malignant neoplasm of other organs or systems; Z87.440 Personal history of urinary (tract) infections; Z87.891 Personal history of nicotine dependence; Z95.1 Presence of aortocoronary bypass graft; Z95.5 Presence of coronary angioplasty implant and graft; Z83.6 Family history of other diseases of the respiratory system; Z98.42 Cataract extraction status, left eye; Z98.41 Cataract extraction status, right eye; Z96.1 Presence of intraocular lens
CPT/HCPCS: 36415; 72131; 80053; 81001; 85025; 87040; 87077; 87086; 87186; 96374; 99285

== ENCOUNTER 2020-02-18 15:10 | Emergency (ER) | payer MEDICARE ==
--- NOTE | 2020-02-18 16:26 | ED ---
General Adult HPI - General Chief complaint: Altered Mental Status Stated complaint: Sent from [facility] Time Seen by Provider: 02/18/20 15:37 Source: patient, family, RN notes reviewed, old records reviewed Mode of arrival: ambulatory Limitations: no limitations - History of Present Illness Initial comments: And hallucination. Patient's symptoms 7 present for the past several days. He had a similar episode compared to this about 6 months ago which was associated with urinary tract infection. He was seen at [facility] and sent to the emergency department for evaluation. He denies headache. Denies focal numbness or weakness. Denies abdominal pain nausea or vomiting. Denies chest pain or dyspnea. No fever. No dysuria or hematuria. He is accompanied by his son who states he's had multiple auditory and visual hallucinations over the past 3 or 4 days. - Related Data Home Medications Medication Instructions Recorded Confirmed Omeprazole [PriLOSEC] 20 mg PO DAILY 07/14/14 01/18/19 Metoprolol Succinate [Toprol Xl] 50 mg PO DAILY 12/18/17 01/18/19 Ibuprofen [Motrin] 600 mg PO Q6HR PRN 01/16/19 01/18/19 Oxybutynin Chloride [Oxybutynin 15 mg PO DAILY 01/16/19 01/18/19 Chloride ER] Previous Rx's Medication Instructions Recorded Atorvastatin [Lipitor] 40 mg PO DAILY #30 tab 07/19/14 Escitalopram [Lexapro] 10 mg PO DAILY tab 12/21/17 Tamsulosin [Flomax] 0.4 mg PO PC-SUPPER #90 cap.er.24h 12/21/17 Cefdinir [Omnicef] 300 mg PO Q12HR 10 Days #20 capsule 01/22/19 HYDROcodone/APAP 5-325MG [Radiant 1 each PO Q4HR PRN #14 tab 01/22/19 5-325] LORazepam [Ativan] 1 mg PO BID PRN 5 Days #10 tablet 01/22/19 Allergies Allergy/AdvReac Type Severity Reaction Status Date / Time No Known Allergies Allergy Verified 02/18/20 15:31 Review of Systems ROS Statement: Those systems with pertinent positive or pertinent negative responses have been documented in the HPI. ROS Other: All systems not noted in ROS Statement are negative. Past Medical History Past Medical History: Coronary Artery Disease (CAD), Chest Pain / Angina, GERD/Reflux, Hyperlipidemia, Hypertension Additional Past Medical History / Comment(s): hemorrhoids History of Any Multi-Drug Resistant Organisms: None Reported Past Surgical History: Coronary Bypass/CABG, Heart Catheterization, Heart Catheterization With Stent, Tonsillectomy Additional Past Surgical History / Comment(s): CABG-QUADRUPLE 1997, 2007 HEART CATH, 07-19-17 heart cath w/ angioplsty/stents. CATARACT WITH LENS IMPLANT 2007 (TORIC-ACRYSOF) .colonoscopy Past Anesthesia/Blood Transfusion Reactions: No Reported Reaction Additional Past Anesthesia/Blood Transfusion Reaction / Comment(s): pt stated he received blood in past-no reaction to it. Date of Last Stent Placement:: 2014 Past Psychological History: Anxiety Past Alcohol Use History: None Reported Past Drug Use History: None Reported - Past Family History Mother Family Medical History: Pneumonia Additional Family Medical History / Comment(s): from pne Father Family Medical History: Pneumonia Additional Family Medical History / Comment(s): from pne Brother(s) Family Medical History: Cancer Additional Family Medical History / Comment(s): THROAT CA General Exam Limitations: no limitations General appearance: alert, in no apparent distress Head exam: Present: atraumatic, normocephalic Eye exam: Present: normal appearance, PERRL ENT exam: Present: normal exam, mucous membranes moist Neck exam: Present: normal inspection. Absent: tenderness, meningismus Respiratory exam: Present: normal lung sounds bilaterally. Absent: respiratory distress, wheezes Cardiovascular Exam: Present: regular rate, normal rhythm GI/Abdominal exam: Present: soft. Absent: distended, tenderness, guarding Neurological exam: Present: alert, oriented X3, CN II-XII intact, other (Fine bilateral upper extremity tremor, no ataxia, no focal weakness). Absent: motor sensory deficit Psychiatric exam: Present: normal affect, normal mood Skin exam: Present: warm, dry, intact Course Vital Signs 02/18/20 15:26 Temperature 98.8 F Pulse Rate 83 Respiratory 16 Rate Blood Pressure 146/83 O2 Sat by Pulse 97 Oximetry EKG Findings - EKG Comments: EKG Findings:: EKG: Sinus rhythm with PVC, LVH, rate of 76, MN interval 142, QRS duration 82, QTC 454, no ST segment elevation. Medical Decision Making - Medical Decision Making 84-year-old male with hallucinations. He is alert and oriented, otherwise well- appearing. No psychiatric history. Afebrile with stable vitals. He has a nonfocal neurologic exam. He has a chest x-ray negative for acute cardio pulmonary disease, showing some cardiomegaly. His computed tomography scan which is negative for renal hemorrhage or mass effect. Normal CBC, normal CMP, urinalysis is negative. He is accompanied by family friend who takes care of him and watches after him daily. Patient is eager for discharge, his girlfriend is agreeable with this plan, have a follow-up with the primary care physician in approximately 2 weeks. They will return with any worsening or changing symptoms. - Lab Data Result diagrams: 02/18/20 16:24 02/18/20 16:24 Lab Results 02/18/20 02/18/20 02/18/20 Range/Units 16:24 16:24 16:24 WBC 8.3 (3.8-10.6) k/uL RBC 4.93 (4.30-5.90) m/uL Hgb 14.4 (13.0-17.5) gm/dL Hct 44.1 (39.0-53.0) % MCV 89.5 (80.0-100.0) fL MCH 29.3 (25.0-35.0) pg MCHC 32.7 (31.0-37.0) g/dL RDW 14.8 (11.5-15.5) % Plt Count 138 L (150-450) k/uL Neutrophils % 81 % Lymphocytes % 10 % Monocytes % 6 % Eosinophils % 2 % Basophils % 0 % Neutrophils # 6.7 (1.3-7.7) k/uL Lymphocytes # 0.8 L (1.0-4.8) k/uL Monocytes # 0.5 (0-1.0) k/uL Eosinophils # 0.1 (0-0.7) k/uL Basophils # 0.0 (0-0.2) k/uL PT 10.7 (9.0-12.0) sec INR 1.0 (<1.2) APTT 28.1 (22.0-30.0) sec Sodium (137-145) mmol/L Potassium (3.5-5.1) mmol/L Chloride (98-107) mmol/L Carbon Dioxide (22-30) mmol/L Anion Gap mmol/L BUN (9-20) mg/dL Creatinine (0.66-1.25) mg/dL Est GFR (CKD-EPI)AfAm (>60 ml/min/1.73 sqM) Est GFR (CKD-EPI)NonAf (>60 ml/min/1.73 sqM) Glucose (74-99) mg/dL Calcium (8.4-10.2) mg/dL Total Bilirubin (0.2-1.3) mg/dL AST (17-59) U/L ALT (4-49) U/L Alkaline Phosphatase (38-126) U/L Ammonia (<30) umol/L Total Protein (6.3-8.2) g/dL Albumin (3.5-5.0) g/dL Urine Color Yellow Urine Appearance Clear (Clear) Urine pH 6.5 (5.0-8.0) Ur Specific [place] 1.026 (1.001-1.035) Urine Protein Negative (Negative) Urine Glucose (UA) Negative (Negative) Urine Ketones Trace H (Negative) Urine Blood Negative (Negative) Urine Nitrite Negative (Negative) Urine Bilirubin Negative (Negative) Urine Urobilinogen 2.0 (<2.0) mg/dL Ur Leukocyte Esterase Negative (Negative) 02/18/20 02/18/20 Range/Units 16:24 16:24 WBC (3.8-10.6) k/uL RBC (4.30-5.90) m/uL Hgb (13.0-17.5) gm/dL Hct (39.0-53.0) % MCV (80.0-100.0) fL MCH (25.0-35.0) pg MCHC (31.0-37.0) g/dL RDW (11.5-15.5) % Plt Count (150-450) k/uL Neutrophils % % Lymphocytes % % Monocytes % % Eosinophils % % Basophils % % Neutrophils # (1.3-7.7) k/uL Lymphocytes # (1.0-4.8) k/uL Monocytes # (0-1.0) k/uL Eosinophils # (0-0.7) k/uL Basophils # (0-0.2) k/uL PT (9.0-12.0) sec INR (<1.2) APTT (22.0-30.0) sec Sodium 139 (137-145) mmol/L Potassium 4.2 (3.5-5.1) mmol/L Chloride 108 H (98-107) mmol/L Carbon Dioxide 25 (22-30) mmol/L Anion Gap 6 mmol/L BUN 23 H (9-20) mg/dL Creatinine 0.99 (0.66-1.25) mg/dL Est GFR (CKD-EPI)AfAm 81 (>60 ml/min/1.73 sqM) Est GFR (CKD-EPI)NonAf 70 (>60 ml/min/1.73 sqM) Glucose 152 H (74-99) mg/dL Calcium 8.9 (8.4-10.2) mg/dL Total Bilirubin 0.6 (0.2-1.3) mg/dL AST 26 (17-59) U/L ALT 16 (4-49) U/L Alkaline Phosphatase 51 (38-126) U/L Ammonia 15 (<30) umol/L Total Protein 6.6 (6.3-8.2) g/dL Albumin 3.9 (3.5-5.0) g/dL Urine Color Urine Appearance (Clear) Urine pH (5.0-8.0) Ur Specific [place] (1.001-1.035) Urine Protein (Negative) Urine Glucose (UA) (Negative) Urine Ketones (Negative) Urine Blood (Negative) Urine Nitrite (Negative) Urine Bilirubin (Negative) Urine Urobilinogen (<2.0) mg/dL Ur Leukocyte Esterase (Negative) Disposition Clinical Impression: Hallucination, Altered mental status Disposition: HOME SELF-CARE Condition: Fair Instructions (If sedation given, give patient instructions): Altered Mental Status (ED) Is patient prescribed a controlled substance at d/c from ED?: No Referrals: Vicente Loomis MD [Primary Care Provider] - 1-2 days Time of Disposition: 17:32
[2020-02-18 16:42] LABS: Basophils % (A) 0 %; Eosinophils # (A) 0.1 k/uL (0-0.7); Eosinophils % (A) 2 %; HCT 44.1 % (39.0-53.0); HGB 14.4 gm/dL (13.0-17.5); Lymphocytes # (A) 0.8 k/uL (1.0-4.8); Lymphocytes % (A) 10 %; MCH 29.3 pg (25.0-35.0); MCHC 32.7 g/dL (31.0-37.0); MCV 89.5 fL (80.0-100.0); Mean Platelet Volume 8.5; Monocytes # (A) 0.5 k/uL (0-1.0); Monocytes % (A) 6 %; Neutrophils # (A) 6.7 k/uL (1.3-7.7); Neutrophils % (A) 81 %; Platelet Count 138 k/uL (150-450); RBC 4.93 m/uL (4.30-5.90); RDW 14.8 % (11.5-15.5); WBC 8.3 k/uL (3.8-10.6)
[2020-02-18 16:49] LABS: Appearance,Urine Clear (Clear); Bilirubin,Urine Negative (Negative); Blood,Urine Negative (Negative); Color,Urine Yellow; Glucose,Urine (UA) Negative (Negative); Ketones,Urine Trace (Negative); Leukocyte Esterase,Urine Negative (Negative); Nitrite,Urine Negative (Negative); PH, Urine 6.5 (5.0-8.0); Protein,Urine Negative (Negative); Specific Gravity,Urine 1.026 (1.001-1.035)
[2020-02-18 16:56] LABS: Partial Thromboplastin Time 28.1 sec (22.0-30.0); Prothrombin Time 10.7 sec (9.0-12.0)
[2020-02-18 16:58] LABS: Albumin 3.9 g/dL (3.5-5.0); Calcium 8.9 mg/dL (8.4-10.2); Potassium 4.2 mmol/L (3.5-5.1); Total Bilirubin 0.6 mg/dL (0.2-1.3); Total Protein 6.6 g/dL (6.3-8.2)
--- NOTE | 2020-02-18 17:02 | CT ---
EXAMINATION TYPE: CT brain wo con DATE OF EXAM: 02/18/2020 COMPARISON: 12/17/2017 HISTORY: Weakness CT DLP: 1202.4 mGycm Automated exposure control for dose reduction was used. There is diffuse cerebral atrophy. There is no mass effect nor midline shift. There is no sign of int racranial hemorrhage. There is hypodensity around the frontal horns of the lateral ventricles. 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 The calvarium is intact. IMPRESSION: Cerebral atrophy and chronic small vessel ischemia. No change compared to old exam.
--- NOTE | 2020-02-18 17:12 | XR ---
EXAMINATION TYPE: XR chest 2V DATE OF EXAM: 02/18/2020 COMPARISON: 12/17/2017 HISTORY: Altered mental status TECHNIQUE: FINDINGS: There is no heart failure nor confluent pneumonic infiltrate. Costophrenic angles are clear . There are sternal wires. Heart appears slightly enlarged. Bony thorax is intact. IMPRESSION: Cardiomegaly. No active cardiopulmonary disease. There is clearing of the pulmonary conge stion compared to old exam.
[2020-02-18 17:55] VITALS: BP 141/83; PULSE 77; RESP 18; TEMP 98.1
== END 2020-02-18 18:06 | disposition home or self-care (01) ==
LOC: EC 15:10
DX: R44.3 Hallucinations, unspecified (principal); R41.82 Altered mental status, unspecified; K21.9 Gastro-esophageal reflux disease without esophagitis; I10 Essential (primary) hypertension; I20.9 Angina pectoris, unspecified; Z79.899 Other long term (current) drug therapy; Z95.5 Presence of coronary angioplasty implant and graft; Z95.1 Presence of aortocoronary bypass graft; Z98.42 Cataract extraction status, left eye; Z98.41 Cataract extraction status, right eye; Z96.1 Presence of intraocular lens
CPT/HCPCS: 36415; 70450; 71046; 80053; 81003; 82140; 85025; 85610; 85730; 93005; 99285

== ENCOUNTER → 2021-03-19 | Outpatient (CLI) | payer MEDICARE ==
--- NOTE | 2021-03-19 12:06 | XR ---
EXAM TYPE: LUMBAR SPINE X RAY SERIES COMPARISON: 01/16/2019 HISTORY: Pain TECHNIQUE: 3 views are submitted. FINDINGS: Alignment is anatomic. The pedicles are intact. The transverse processes are intact. There is hype rtrophic and degenerative changes of the spine. Grade 1 anterolisthesis of L4 on L5 with multilevel a rthropathy and degenerative changes. Vascular calcifications of the aorta. Suspect a 3.6 cm abdominal aortic aneurysm. Retrolisthesis of L1l IMPRESSION: 1. Multilevel degenerative disc disease and facet arthropathy with grade 1 anterolisthesis L4 on L5. 2. Suspected abdominal aortic aneurysm measuring 3.6 cm correlate with ultrasound.
== END | disposition home or self-care (01) ==
LOC: RADXRMAIN 11:29
PROVIDERS: ATTEND Internal Medicine
DX: M51.36 Other intervertebral disc degeneration, lumbar region (principal); M43.16 Spondylolisthesis, lumbar region
CPT/HCPCS: 72100

== ENCOUNTER → 2021-06-28 | Outpatient (CLI) | payer MEDICARE ==
--- NOTE | 2021-06-28 13:14 | US ---
EXAMINATION TYPE: US duplex aorta DATE OF EXAM: 06/28/2021 COMPARISON: XRay 03/19/21, lumbar spine CT January 18, 2019 CLINICAL HISTORY: Z13.6 Screening for Abdominal Aortic Aneurysm. EXAM MEASUREMENTS: Abdominal Aorta: Proximal: 2.8 x 2.6 cm Mid: 2.5 x 2.4 cm Distal: 2.9 x 3.6 cm Bifurcation: 1.2 cm 1.1 cm very difficult scan overall due to large amounts of overlying bowel gas. Difficult to see posterior w all of distal aorta for an accurate AP measurement due to calcified plaque. Proximal aorta not well s een. Suboptimal study due to body habitus and overlying bowel gas. Diffuse peripheral calcified plaque is redemonstrated. Technologist johnson distal AAA at 2.9 x 3.6 cm but posterior wall not well visualized to accurately measure. This is greater than seen in the [address] CT. IMPRESSION: As above. Suboptimal study. Possible new greater than 3.0 cm distal AAA. Advise CT or MRI evaluation to better evaluate and characterize
== END | disposition home or self-care (01) ==
LOC: RADUSWWP 08:58
PROVIDERS: ATTEND Internal Medicine
DX: I71.4 Abdominal aortic aneurysm, without rupture (principal)
CPT/HCPCS: 93979

== ENCOUNTER → 2021-07-03 | Outpatient (CLI) | payer MEDICARE ==
--- NOTE | 2021-07-03 14:59 | CT ---
EXAMINATION TYPE: CT brain wo con DATE OF EXAM: 07/03/2021 COMPARISON: 02/18/2020 HISTORY: Headache. CT DLP: 1144.[address] of the brain was performed. The ventricles, basal cisterns and sulci overlying the cerebral convexities demonstrate moderate enla rgement. There is no evidence for intracranial hemorrhage or sulcal effacement. There is decreased attenuation about the periventricular white matter and deep white matter of both c erebral hemispheres, compatible with chronic small vessel ischemia. Differential diagnosis does inclu de demyelination. No mass effects are seen.No midline shift. Osseous calvarium is intact. If symptoms persist consider MRI. IMPRESSION: 1. Age related atrophic and chronic small vessel ischemic change without acute intracranial process s een at this time.
== END | disposition home or self-care (01) ==
LOC: RADCTMAIN 14:28
PROVIDERS: ATTEND Internal Medicine
DX: I67.82 Cerebral ischemia (principal); G31.89 Other specified degenerative diseases of nervous system
CPT/HCPCS: 70450

== ENCOUNTER 2022-11-19 10:47 | Emergency (ER) | payer MEDICARE ==
[2022-11-19 11:03] VITALS: TEMP 97.9
--- NOTE | 2022-11-19 11:11 | ED ---
General Adult HPI - General Source: patient, family, RN notes reviewed Mode of arrival: ambulatory Limitations: no limitations <Opal Becerril - Last Filed: 11/19/22 11:09> - General Source: patient, family, RN notes reviewed Mode of arrival: ambulatory Limitations: no limitations <Andrey Elliott - Last Filed: 11/19/22 14:36> - General Chief complaint: Weakness Stated complaint: Weakness Time Seen by Provider: 11/19/22 11:09 - History of Present Illness Initial comments: 87-year-old male presents to the emergency department with a chief complaint of generalized weakness times one day. Denies any fevers. Appetite and all obtaining the history denies chest pain and shortness of breath. (Opal Becerril) Patient is a pleasant 87-year-old male presenting to the emergency department with concerns with mild general weakness. Onset was today. Patient does not have any other specific complaints. Patient does have chronic hallucinations related to his macular degeneration, this is unchanged. Patient sometimes get a little bit confused however this is fairly normal for him as he has early-onset dementia. Patient does have a friend present who also provide history. Patient may have had a mild headache earlier today however that has resolved. No isolated area of weakness. No chest pain or dyspnea. No abdominal pain. No dysuria. (Andrey Elliott) - Related Data Home Medications Medication Instructions Recorded Confirmed Omeprazole [PriLOSEC] 20 mg PO DAILY 07/14/14 11/19/22 Metoprolol Succinate [Toprol Xl] 50 mg PO DAILY 12/18/17 11/19/22 Oxybutynin Chloride [oxyBUTYnin 15 mg PO DAILY 01/16/19 11/19/22 chloride ER] Acetaminophen [Tylenol Arthritis] 650 mg PO Q8H PRN 11/19/22 11/19/22 Ibuprofen [Motrin Ib] 600 mg PO Q8H PRN 11/19/22 11/19/22 amLODIPine [Norvasc] 5 mg PO DAILY 11/19/22 11/19/22 Previous Rx's Medication Instructions Recorded Atorvastatin [Lipitor] 40 mg PO DAILY #30 tab 07/19/14 Escitalopram [Lexapro] 10 mg PO DAILY tab 12/21/17 Allergies Allergy/AdvReac Type Severity Reaction Status Date / Time No Known Allergies Allergy Verified 11/19/22 12:56 Review of Systems ROS Other: All systems not noted in ROS Statement are negative. <Opal Becerril - Last Filed: 11/19/22 11:09> ROS Other: All systems not noted in ROS Statement are negative. Constitutional: Denies: fever Eyes: Denies: eye pain ENT: Denies: ear pain Respiratory: Denies: cough Cardiovascular: Denies: chest pain Endocrine: Reports: fatigue Gastrointestinal: Denies: abdominal pain Genitourinary: Denies: urgency Musculoskeletal: Denies: back pain Skin: Denies: rash Neurological: Reports: as per HPI. Denies: weakness <Andrey Elliott - Last Filed: 11/19/22 14:36> ROS Statement: Those systems with pertinent positive or pertinent negative responses have been documented in the HPI. Past Medical History Past Medical History: Coronary Artery Disease (CAD), Chest Pain / Angina, GERD/Reflux, Hyperlipidemia, Hypertension Additional Past Medical History / Comment(s): hemorrhoids History of Any Multi-Drug Resistant Organisms: None Reported Past Surgical History: Coronary Bypass/CABG, Heart Catheterization, Heart Catheterization With Stent, Tonsillectomy Additional Past Surgical History / Comment(s): CABG-QUADRUPLE 1997, 2007 HEART CATH, 07-19-17 heart cath w/ angioplsty/stents. CATARACT WITH LENS IMPLANT 2007 (TORIC-ACRYSOF) .colonoscopy Past Anesthesia/Blood Transfusion Reactions: No Reported Reaction Additional Past Anesthesia/Blood Transfusion Reaction / Comment(s): pt stated he received blood in past-no reaction to it. Date of Last Stent Placement:: 2014 Past Psychological History: Anxiety Smoking Status: Never smoker Past Alcohol Use History: None Reported Past Drug Use History: None Reported - Past Family History Mother Family Medical History: Pneumonia Additional Family Medical History / Comment(s): from pne Father Family Medical History: Pneumonia Additional Family Medical History / Comment(s): from pne Brother(s) Family Medical History: Cancer Additional Family Medical History / Comment(s): THROAT CA <Opal Becerril - Last Filed: 11/19/22 11:09> General Exam Limitations: no limitations <Opal Becerril - Last Filed: 11/19/22 11:09> Limitations: no limitations General appearance: alert, in no apparent distress Head exam: Present: atraumatic Eye exam: Present: normal appearance Neck exam: Present: normal inspection Respiratory exam: Present: normal lung sounds bilaterally Cardiovascular Exam: Present: regular rate, normal rhythm, normal heart sounds GI/Abdominal exam: Present: soft. Absent: tenderness Extremities exam: Present: normal inspection Neurological exam: Present: alert, CN II-XII intact. Absent: motor sensory deficit Expanded Neurological exam: Present: protecting the airway Speech: Present: fluid speech Cranial nerves: EOM's Intact: Normal Sensory exam: Upper Extremity Light Touch: Normal, Lower Extremity Light Touch: Normal Motor strength exam: RUE: 5, LUE: 5, RLE: 5, LLE: 5 Eye Response: (4) open spontaneously Motor Response: (6) obeys commands Verbal Response: (5) oriented Psychiatric exam: Present: normal affect, normal mood Skin exam: Present: normal color <Andrey Elliott Last Filed: 11/19/22 14:36> - General Exam Comments Initial Comments: Visual Physical Exam Vital signs reviewed General: Well-appearing, nontoxic, no acute distress. Head: Normocephalic, atraumatic Eyes: PERRLA, EOMI ENT: Airway patent Chest: Nonlabored breathing Skin: No visual rash, normal skin tone Neuro: Alert and oriented 3 Musculoskeletal: No gross abnormalities (Opal Becerril) Course Vital Signs 11/19/22 11/19/22 11/19/22 11:00 12:14 13:00 Temperature 97.9 F Pulse Rate 78 69 60 Respiratory 20 18 18 Rate Blood Pressure 115/71 110/59 120/60 O2 Sat by Pulse 96 95 Oximetry EKG Findings - EKG Results: EKG: interpreted by ERMD (LVH. Inferior Q waves. Lateral T wave inversion.), sinus rhythm, normal axis <Andrey Elliott Filed: 11/19/22 14:36> Medical Decision Making - Lab Data Result diagrams: 11/19/22 11:51 11/19/22 11:51 <Andrey Elliott Filed: 11/19/22 14:36> - Medical Decision Making Was pt. sent in by a medical professional or institution (, PA, PSYCHIATRIC AIDE INSTRUCTOR, urgent care, hospital, or snf...) When possible be specific @ -No Did you speak to anyone other than the patient for history (EMS, parent, family, police, friend...)? What history was obtained from this source @ -Patient's friend is present without provide history. Did you review nursing and triage notes (agree or disagree)? Why? @ -I reviewed and agree with nursing and triage notes Were old charts reviewed (outside hosp., previous admission, EMS record, old EKG, old radiological studies, urgent care reports/EKG's, snf records)? Report findings @ -No old charts were reviewed Differential Diagnosis (chest pain, altered mental status, abdominal pain women, abdominal pain men, vaginal bleeding, weakness, fever, dyspnea, syncope, headache, dizziness, GI bleed, back pain, seizure, CVA, palpatations, mental health)? @ -Differential Weakness: Hypoglycemia, shock, sepsis, hyponatremia, anemia, infection, PA, ETOH, adverse medicine reaction, overdose, stroke, this is not meant to be an all-inclusive list. EKG interpreted by me (3pts min.). @ -As above X-rays interpreted by me (1pt min.). @ -Chest x-ray shows no acute process CT interpreted by me (1pt min.). @ -None done U/S interpreted by me (1pt. min.). @ -None done What testing was considered but not performed or refused? (CT, X-rays, U/S, labs)? Why? @ -None What meds were considered but not given or refused? Why? @ -None Did you discuss the management of the patient with other professionals (professionals i.e. , PA, PSYCHIATRIC AIDE INSTRUCTOR, lab, RT, psych nurse, manager social responsibility, crm coordinator, teacher, cavalry officer, cost estimating manager)? Give summary @ -No Was smoking cessation discussed for >3mins.? @ -No Was critical care preformed (if so, how long)? @ -No Were there social determinants of health that impacted care today? How? (Homelessness, low income, unemployed, alcoholism, drug addiction, transportation, low edu. Level, literacy, decrease access to med. care, care home, rehab)? @ -No Was there de-escalation of care discussed even if they declined (Discuss DNR or withdrawal of care, Hospice)? DNR status @ -No What co-morbidities impacted this encounter? (DM, HTN, Smoking, COPD, CAD, Cancer, CVA, ARF, Chemo, Hep., AIDS, mental health diagnosis, sleep apnea, morbid obesity)? @ -None Was patient admitted / discharged? Hospital course, mention meds given and route, prescriptions, significant lab abnormalities, going to OR and other pertinent info. @ -Patient reevaluated and feeling better. No specific complaints at this time. Patient and friend are both comfortable with discharge home. Patient is able to ambulate as normal. Undiagnosed new problem with uncertain prognosis? @ -No Drug Therapy requiring intensive monitoring for toxicity (Heparin, Nitro, Insulin, Cardizem)? @ -No Were any procedures done? @ -No Diagnosis/symptom? @ -Fatigue Acute, or Chronic, or Acute on Chronic? @ -Acute Uncomplicated (without systemic symptoms) or Complicated (systemic symptoms)? @ -default Side effects of treatment? @ -No Exacerbation, Progression, or Severe Exacerbation? @ -No Poses a threat to life or bodily function? How? (Chest pain, USA, PA, pneumonia, PE, COPD, DKA, ARF, appy, cholecystitis, CVA, Diverticulitis, Homicidal, Suicidal, threat to staff... and all critical care pts) @ -No (Andrey Elliott) - Lab Data Lab Results 11/19/22 11/19/22 11/19/22 Range/Units 11:49 11:51 11:51 WBC 7.7 (3.8-10.6) k/uL RBC 5.31 (4.30-5.90) m/uL Hgb 15.1 (13.0-17.5) gm/dL Hct 46.2 (39.0-53.0) % MCV 87.1 (80.0-100.0) fL MCH 28.5 (25.0-35.0) pg MCHC 32.7 (31.0-37.0) g/dL RDW 15.3 (11.5-15.5) % Plt Count 149 L (150-450) k/uL MPV 8.8 Neutrophils % 81 % Lymphocytes % 10 % Monocytes % 5 % Eosinophils % 1 % Basophils % 0 % Neutrophils # 6.2 (1.3-7.7) k/uL Lymphocytes # 0.8 L (1.0-4.8) k/uL Monocytes # 0.4 (0-1.0) k/uL Eosinophils # 0.1 (0-0.7) k/uL Basophils # 0.0 (0-0.2) k/uL PT 10.6 (9.0-12.0) sec INR 1.0 (<1.2) APTT 27.3 (22.0-30.0) sec Sodium (137-145) mmol/L Potassium (3.5-5.1) mmol/L Chloride (98-107) mmol/L Carbon Dioxide (22-30) mmol/L Anion Gap mmol/L BUN (9-20) mg/dL Creatinine (0.66-1.25) mg/dL Est GFR (CKD-EPI)AfAm (>60 ml/min/1.73 sqM) Est GFR (CKD-EPI)NonAf (>60 ml/min/1.73 sqM) Glucose (74-99) mg/dL POC Glucose (mg/dL) 111 H (70-110) mg/dL POC Glu [employer] Trades Assistants ID Katelyn, Britany Plasma Lactic Acid Irineo (0.7-2.0) mmol/L Calcium (8.4-10.2) mg/dL Total Bilirubin (0.2-1.3) mg/dL AST (17-59) U/L ALT (4-49) U/L Alkaline Phosphatase (38-126) U/L Troponin I (0.000-0.034) ng/mL Total Protein (6.3-8.2) g/dL Albumin (3.5-5.0) g/dL Urine Color Urine Appearance (Clear) Urine pH (5.0-8.0) Ur Specific [place] (1.001-1.035) Urine Protein (Negative) Urine Glucose (UA) (Negative) Urine Ketones (Negative) Urine Blood (Negative) Urine Nitrite (Negative) Urine Bilirubin (Negative) Urine Urobilinogen (<2.0) mg/dL Ur Leukocyte Esterase (Negative) Influenza Type A (PCR) (Not Detectd) Influenza Type B (PCR) (Not Detectd) RSV (PCR) (Not Detectd) SARS-CoV-2 (PCR) (Not Detectd) 11/19/22 11/19/22 11/19/22 Range/Units 11:51 11:51 11:51 WBC (3.8-10.6) k/uL RBC (4.30-5.90) m/uL Hgb (13.0-17.5) gm/dL Hct (39.0-53.0) % MCV (80.0-100.0) fL MCH (25.0-35.0) pg MCHC (31.0-37.0) g/dL RDW (11.5-15.5) % Plt Count (150-450) k/uL MPV Neutrophils % % Lymphocytes % % Monocytes % % Eosinophils % % Basophils % % Neutrophils # (1.3-7.7) k/uL Lymphocytes # (1.0-4.8) k/uL Monocytes # (0-1.0) k/uL Eosinophils # (0-0.7) k/uL Basophils # (0-0.2) k/uL PT (9.0-12.0) sec INR (<1.2) APTT (22.0-30.0) sec Sodium 140 (137-145) mmol/L Potassium 4.3 (3.5-5.1) mmol/L Chloride 106 (98-107) mmol/L Carbon Dioxide 23 (22-30) mmol/L Anion Gap 11 mmol/L BUN 24 H (9-20) mg/dL Creatinine 1.19 (0.66-1.25) mg/dL Est GFR (CKD-EPI)AfAm 63 (>60 ml/min/1.73 sqM) Est GFR (CKD-EPI)NonAf 55 (>60 ml/min/1.73 sqM) Glucose 131 H (74-99) mg/dL POC Glucose (mg/dL) (70-110) mg/dL POC Glu [employer] Trades Assistants ID Plasma Lactic Acid Irineo 1.6 (0.7-2.0) mmol/L Calcium 8.7 (8.4-10.2) mg/dL Total Bilirubin 0.9 (0.2-1.3) mg/dL AST 24 (17-59) U/L ALT 18 (4-49) U/L Alkaline Phosphatase 48 (38-126) U/L Troponin I <0.012 (0.000-0.034) ng/mL Total Protein 6.5 (6.3-8.2) g/dL Albumin 3.7 (3.5-5.0) g/dL Urine Color Urine Appearance (Clear) Urine pH (5.0-8.0) Ur Specific [place] (1.001-1.035) Urine Protein (Negative) Urine Glucose (UA) (Negative) Urine Ketones (Negative) Urine Blood (Negative) Urine Nitrite (Negative) Urine Bilirubin (Negative) Urine Urobilinogen (<2.0) mg/dL Ur Leukocyte Esterase (Negative) Influenza Type A (PCR) (Not Detectd) Influenza Type B (PCR) (Not Detectd) RSV (PCR) (Not Detectd) SARS-CoV-2 (PCR) (Not Detectd) 11/19/22 11/19/22 Range/Units 11:51 12:44 WBC (3.8-10.6) k/uL RBC (4.30-5.90) m/uL Hgb (13.0-17.5) gm/dL Hct (39.0-53.0) % MCV (80.0-100.0) fL MCH (25.0-35.0) pg MCHC (31.0-37.0) g/dL RDW (11.5-15.5) % Plt Count (150-450) k/uL MPV Neutrophils % % Lymphocytes % % Monocytes % % Eosinophils % % Basophils % % Neutrophils # (1.3-7.7) k/uL Lymphocytes # (1.0-4.8) k/uL Monocytes # (0-1.0) k/uL Eosinophils # (0-0.7) k/uL Basophils # (0-0.2) k/uL PT (9.0-12.0) sec INR (<1.2) APTT (22.0-30.0) sec Sodium (137-145) mmol/L Potassium (3.5-5.1) mmol/L Chloride (98-107) mmol/L Carbon Dioxide (22-30) mmol/L Anion Gap mmol/L BUN (9-20) mg/dL Creatinine (0.66-1.25) mg/dL Est GFR (CKD-EPI)AfAm (>60 ml/min/1.73 sqM) Est GFR (CKD-EPI)NonAf (>60 ml/min/1.73 sqM) Glucose (74-99) mg/dL POC Glucose (mg/dL) (70-110) mg/dL POC Glu Food Trades Assistants ID Plasma Lactic Acid Irineo (0.7-2.0) mmol/L Calcium (8.4-10.2) mg/dL Total Bilirubin (0.2-1.3) mg/dL AST (17-59) U/L ALT (4-49) U/L Alkaline Phosphatase (38-126) U/L Troponin I (0.000-0.034) ng/mL Total Protein (6.3-8.2) g/dL Albumin (3.5-5.0) g/dL Urine Color Yellow Urine Appearance Clear (Clear) Urine pH 6.5 (5.0-8.0) Ur Specific [place] 1.017 (1.001-1.035) Urine Protein Negative (Negative) Urine Glucose (UA) Negative (Negative) Urine Ketones Negative (Negative) Urine Blood Negative (Negative) Urine Nitrite Negative (Negative) Urine Bilirubin Negative (Negative) Urine Urobilinogen 3.0 (<2.0) mg/dL Ur Leukocyte Esterase Negative (Negative) Influenza Type A (PCR) Not Detected (Not Detectd) Influenza Type B (PCR) Not Detected (Not Detectd) RSV (PCR) Not Detected (Not Detectd) SARS-CoV-2 (PCR) Not Detected (Not Detectd) Disposition <Opal Becerril - Last Filed: 11/19/22 11:09> Is patient prescribed a controlled substance at d/c from ED?: No Time of Disposition: 14:36 <Andrye Elliott - Last Filed: 11/19/22 14:36> Clinical Impression: Fatigue Disposition: HOME SELF-CARE Condition: Stable Instructions (If sedation given, give patient instructions): Fatigue (ED) Additional Instructions: Please do follow-up with your primary care physician in the next one to 2 days for recheck. Return for increased weakness, fevers or worsening or changing symptoms or any other concerns Referrals: Milad Gottlieb MD [Primary Care Provider] - 1-2 days
[2022-11-19 11:53] LABS: Glucose,Whole Blood 111 mg/dL (70-110)
[2022-11-19 12:15] VITALS: RESP 18
[2022-11-19 12:20] LABS: Basophils % (A) 0 %; Eosinophils # (A) 0.1 k/uL (0-0.7); Eosinophils % (A) 1 %; HCT 46.2 % (39.0-53.0); HGB 15.1 gm/dL (13.0-17.5); Lymphocytes # (A) 0.8 k/uL (1.0-4.8); Lymphocytes % (A) 10 %; MCH 28.5 pg (25.0-35.0); MCHC 32.7 g/dL (31.0-37.0); MCV 87.1 fL (80.0-100.0); Mean Platelet Volume 8.8; Monocytes # (A) 0.4 k/uL (0-1.0); Monocytes % (A) 5 %; Neutrophils # (A) 6.2 k/uL (1.3-7.7); Neutrophils % (A) 81 %; Platelet Count 149 k/uL (150-450); RBC 5.31 m/uL (4.30-5.90); RDW 15.3 % (11.5-15.5); WBC 7.7 k/uL (3.8-10.6)
[2022-11-19 12:25] LABS: Partial Thromboplastin Time 27.3 sec (22.0-30.0); Prothrombin Time 10.6 sec (9.0-12.0)
[2022-11-19 12:26] LABS: ALT 18 U/L (4-49); AST 24 U/L (17-59); African American GFR (CKD) 63 (>60 ml/min/1.73 sqM); Albumin 3.7 g/dL (3.5-5.0); Alkaline Phosphatase 48 U/L (38-126); Anion Gap 11 mmol/L; Blood Urea Nitrogen 24 mg/dL (9-20); Calcium 8.7 mg/dL (8.4-10.2); Carbon Dioxide 23 mmol/L (22-30); Chloride 106 mmol/L (98-107); Glucose 131 mg/dL (74-99); Non-African American GFR(CKD) 55 (>60 ml/min/1.73 sqM); Potassium 4.3 mmol/L (3.5-5.1); Sodium 140 mmol/L (137-145); Total Bilirubin 0.9 mg/dL (0.2-1.3); Total Protein 6.5 g/dL (6.3-8.2)
--- NOTE | 2022-11-19 12:43 | XR ---
EXAMINATION TYPE: XR chest 2V DATE OF EXAM: 11/19/2022 COMPARISON: 01/25/2022 TECHNIQUE: PA and lateral views submitted. HISTORY: Fatigue FINDINGS: The lungs are clear and there is no pneumothorax, pleural effusion, or focal pneumonia. Heart size normal and no overt failure. Osseous structures demonstrate hypertrophic and degenerative changes of the spine. Postsurgical change involving the mediastinum. Ectasia of the aorta. There is severe small hiatal hernia. IMPRESSION: 1. No acute process.
[2022-11-19 13:01] VITALS: PULSE 60
[2022-11-19 13:30] LABS: Appearance,Urine Clear (Clear); Bilirubin,Urine Negative (Negative); Blood,Urine Negative (Negative); Color,Urine Yellow; Glucose,Urine (UA) Negative (Negative); Ketones,Urine Negative (Negative); Leukocyte Esterase,Urine Negative (Negative); Nitrite,Urine Negative (Negative); PH, Urine 6.5 (5.0-8.0); Protein,Urine Negative (Negative); Specific Gravity,Urine 1.017 (1.001-1.035)
[2022-11-19 14:39] VITALS: BP 138/69
== END 2022-11-19 19:41 | disposition home or self-care (01) ==
LOC: EC 10:47
DX: R53.83 Other fatigue (principal); I25.10 Atherosclerotic heart disease of native coronary artery without angina pectoris; I10 Essential (primary) hypertension; K21.9 Gastro-esophageal reflux disease without esophagitis; F41.9 Anxiety disorder, unspecified; Z79.899 Other long term (current) drug therapy; Z20.822 Contact with and (suspected) exposure to COVID-19
CPT/HCPCS: 36415; 71046; 80053; 81003; 83605; 84484; 85025; 85610; 85730; 87636; 93005; 99285

== ENCOUNTER 2023-04-26 21:03 | Inpatient (IN) | payer MEDICARE ==
[2023-04-26] MEDS ORDERED: SODIUM CHLORIDE 0.9% 500 ML 500 ML IV ONE (21:15)
[2023-04-26 21:30] LABS: Basophils % (A) 0 %; Eosinophils # (A) 0.1 k/uL (0-0.7); Eosinophils % (A) 1 %; HCT 45.9 % (39.0-53.0); HGB 15.3 gm/dL (13.0-17.5); Lymphocytes # (A) 0.6 k/uL (1.0-4.8); Lymphocytes % (A) 6 %; MCH 29.4 pg (25.0-35.0); MCHC 33.4 g/dL (31.0-37.0); Mean Platelet Volume 8.7; Monocytes # (A) 0.7 k/uL (0-1.0); Monocytes % (A) 8 %; Neutrophils # (A) 7.5 k/uL (1.3-7.7); Neutrophils % (A) 83 %; Platelet Count 118 k/uL (150-450); RBC 5.21 m/uL (4.30-5.90); RDW 14.6 % (11.5-15.5); WBC 9.1 k/uL (3.8-10.6)
--- NOTE | 2023-04-26 21:32 | ED ---
General Adult HPI - General Chief complaint: Altered Mental Status Stated complaint: Alt Mental Time Seen by Provider: 04/26/23 21:06 Source: patient, family, EMS, RN notes reviewed, old records reviewed Mode of arrival: EMS Limitations: no limitations - History of Present Illness Initial comments: 77-year-old male presenting from home for evaluation of confusion. Patient does have history of dementia, paramedics had been called after he had a conversation with his niece where he seemed more confused than normal. Patient himself has no complaints time my evaluation. He knows he is at [facility]. He knows his name. He denies any complaints no chest pain or abdominal pain. No vomiting. He states he did not eat much today. - Related Data Home Medications Medication Instructions Recorded Confirmed Omeprazole [PriLOSEC] 20 mg PO DAILY 07/14/14 04/26/23 Metoprolol Succinate [Toprol Xl] 50 mg PO DAILY 12/18/17 04/26/23 Oxybutynin Chloride [oxyBUTYnin 15 mg PO DAILY 01/16/19 04/26/23 chloride ER] Acetaminophen [Tylenol Arthritis] 650 mg PO Q8H PRN 11/19/22 04/26/23 Ibuprofen [Motrin Ib] 600 mg PO Q8H PRN 11/19/22 04/26/23 amLODIPine [Norvasc] 5 mg PO DAILY 11/19/22 04/26/23 Previous Rx's Medication Instructions Recorded Atorvastatin [Lipitor] 40 mg PO DAILY #30 tab 07/19/14 Escitalopram [Lexapro] 10 mg PO DAILY tab 12/21/17 Allergies Allergy/AdvReac Type Severity Reaction Status Date / Time No Known Allergies Allergy Verified 04/26/23 21:15 Review of Systems ROS Statement: Those systems with pertinent positive or pertinent negative responses have been documented in the HPI. ROS Other: All systems not noted in ROS Statement are negative. Past Medical History Past Medical History: Coronary Artery Disease (CAD), Chest Pain / Angina, GERD/Reflux, Hyperlipidemia, Hypertension Additional Past Medical History / Comment(s): hemorrhoids History of Any Multi-Drug Resistant Organisms: None Reported Past Surgical History: Coronary Bypass/CABG, Heart Catheterization, Heart Catheterization With Stent, Tonsillectomy Additional Past Surgical History / Comment(s): CABG-QUADRUPLE 1997, 2007 HEART CATH, 07-19-17 heart cath w/ angioplsty/stents. CATARACT WITH LENS IMPLANT 2007 (TORIC-ACRYSOF) .colonoscopy Past Anesthesia/Blood Transfusion Reactions: No Reported Reaction Additional Past Anesthesia/Blood Transfusion Reaction / Comment(s): pt stated he received blood in past-no reaction to it. Date of Last Stent Placement:: 2014 Past Psychological History: Anxiety Smoking Status: Never smoker Past Alcohol Use History: None Reported Past Drug Use History: None Reported - Past Family History Mother Family Medical History: Pneumonia Additional Family Medical History / Comment(s): from pne Father Family Medical History: Pneumonia Additional Family Medical History / Comment(s): from pne Brother(s) Family Medical History: Cancer Additional Family Medical History / Comment(s): THROAT CA General Exam General appearance: alert, in no apparent distress Head exam: Present: atraumatic, normocephalic Eye exam: Present: normal appearance, PERRL ENT exam: Present: normal exam Neck exam: Present: normal inspection Respiratory exam: Present: normal lung sounds bilaterally. Absent: respiratory distress, wheezes Cardiovascular Exam: Present: regular rate, normal rhythm GI/Abdominal exam: Present: soft. Absent: distended, tenderness, guarding Extremities exam: Present: normal inspection, normal capillary refill Neurological exam: Present: alert, CN II-XII intact. Absent: oriented X3, motor sensory deficit Psychiatric exam: Present: normal affect, normal mood Skin exam: Present: warm, dry, intact Course Vital Signs 04/26/23 04/26/23 21:05 22:18 Temperature 98.4 F Pulse Rate 109 H 105 H Respiratory 18 18 Rate Blood Pressure 131/85 106/72 O2 Sat by Pulse 96 95 Oximetry Medical Decision Making - Medical Decision Making Was pt. sent in by a medical professional or institution (, PA, PHOTO PRODUCER, urgent care, hospital, or senior care...) When possible be specific @ -No Did you speak to anyone other than the patient for history (EMS, parent, family, police, friend...)? What history was obtained from this source @ -No Did you review nursing and triage notes (agree or disagree)? Why? @ -I reviewed and agree with nursing and triage notes Were old charts reviewed (outside hosp., previous admission, EMS record, old EKG, old radiological studies, urgent care reports/EKG's, senior care records)? Report findings @ -No old charts were reviewed Differential Diagnosis (chest pain, altered mental status, abdominal pain women, abdominal pain men, vaginal bleeding, weakness, fever, dyspnea, syncope, head ache, dizziness, GI bleed, back pain, seizure, CVA, palpatations, mental health, musculoskeletal)? @ -[Differential Altered Mental Status: Hypoglycemia, DKA, hypercapnia, ETOH, overdose, CO poisoning, trauma, myxedema coma, HTN encephalopathy, infection, encephalitis, psychosis, intercranial hemorrhage, hepatic encephalopathy, meningitis, CVA, this is not meant to be an all-inclusive list EKG interpreted by me (3pts min.). @Sinus tachycardia rate of 106 WI interval 153, QRS duration 88, QTC [address] segment elevation X-rays interpreted by me (1pt min.). @ -[No focal pneumonia, no acute findings on chest x-ray CT interpreted by me (1pt min.). @ -None done U/S interpreted by me (1pt. min.). @ -None done What testing was considered but not performed or refused? (CT, X-rays, U/S, labs)? Why? @ -None What meds were considered but not given or refused? Why? @ -None Did you discuss the management of the patient with other professionals (professionals i.e. , PA, PHOTO PRODUCER, lab, RT, psych nurse, social security assessor, line crew supervisor, teacher, international first officer, shoe parts caser)? Give summary @ -[SOund Was smoking cessation discussed for >3mins.? @ -No Was critical care preformed (if so, how long)? @ -No Were there social determinants of health that impacted care today? How? (Homelessness, low income, unemployed, alcoholism, drug addiction, transportation, low edu. Level, literacy, decrease access to med. care, [facility], rehab)? @ -No Was there de-escalation of care discussed even if they declined (Discuss DNR or withdrawal of care, Hospice)? DNR status @ -No What co-morbidities impacted this encounter? (DM, HTN, Smoking, COPD, CAD, Cancer, CVA, ARF, Chemo, Hep., AIDS, mental health diagnosis, sleep apnea, morbid obesity)? @ -None Was patient admitted / discharged? Hospital course, mention meds given and route, prescriptions, significant lab abnormalities, going to OR and other pertinent info. @ -87-year-old male who lives alone with acute confusion. Patient is alert and oriented 2 with time my evaluation. No specific complaints. He does appear somewhat dehydrated, mildly tachycardic. He has normal CBC, normal CMP, does test positive for coronavirus which is likely contributing to his symptoms. He has no family in the area, currently lives alone. He will require admission to [facility] observation and reevaluation, possible placement. Case discussed with Dr. Mcnulty Undiagnosed new problem with uncertain prognosis? @ -No Drug Therapy requiring intensive monitoring for toxicity (Heparin, Nitro, Insulin, Cardizem)? @ -No Were any procedures done? @ -No Diagnosis/symptom? @ Acute confusion, coronavirus, dehydration Acute, or Chronic, or Acute on Chronic? @ -Acute Uncomplicated (without systemic symptoms) or Complicated (systemic symptoms)? @ -default Side effects of treatment? @ -No Exacerbation, Progression, or Severe Exacerbation? @ -No Poses a threat to life or bodily function? How? (Chest pain, USA, VT, pneumonia, PE, COPD, DKA, ARF, appy, cholecystitis, CVA, Diverticulitis, Homicidal, Suicidal, threat to staff... and all critical care pts) @ -[Moderate risk - Lab Data Result diagrams: 04/26/23 21:23 04/26/23 21:23 Lab Results 04/26/23 04/26/23 04/26/23 Range/Units 21:23 21:23 21:23 WBC 9.1 (3.8-10.6) k/uL RBC 5.21 (4.30-5.90) m/uL Hgb 15.3 (13.0-17.5) gm/dL Hct 45.9 (39.0-53.0) % MCV 88.0 (80.0-100.0) fL MCH 29.4 (25.0-35.0) pg MCHC 33.4 (31.0-37.0) g/dL RDW 14.6 (11.5-15.5) % Plt Count 118 L (150-450) k/uL MPV 8.7 Neutrophils % 83 % Lymphocytes % 6 % Monocytes % 8 % Eosinophils % 1 % Basophils % 0 % Neutrophils # 7.5 (1.3-7.7) k/uL Lymphocytes # 0.6 L (1.0-4.8) k/uL Monocytes # 0.7 (0-1.0) k/uL Eosinophils # 0.1 (0-0.7) k/uL Basophils # 0.0 (0-0.2) k/uL Sodium 135 L (137-145) mmol/L Potassium 3.8 (3.5-5.1) mmol/L Chloride 104 (98-107) mmol/L Carbon Dioxide 20 L (22-30) mmol/L Anion Gap 11 mmol/L BUN 16 (9-20) mg/dL Creatinine 0.91 (0.66-1.25) mg/dL Est GFR (CKD-EPI)AfAm 87 (>60 ml/min/1.73 sqM) Est GFR (CKD-EPI)NonAf 76 (>60 ml/min/1.73 sqM) Glucose 129 H (74-99) mg/dL Calcium 8.9 (8.4-10.2) mg/dL Magnesium 2.0 (1.6-2.3) mg/dL Total Bilirubin 0.9 (0.2-1.3) mg/dL AST 22 (17-59) U/L ALT 16 (4-49) U/L Alkaline Phosphatase 65 (38-126) U/L Total Protein 6.9 (6.3-8.2) g/dL Albumin 3.9 (3.5-5.0) g/dL Serum Alcohol <10 mg/dL Influenza Type A (PCR) Not Detected (Not Detectd) Influenza Type B (PCR) Not Detected (Not Detectd) RSV (PCR) Not Detected (Not Detectd) SARS-CoV-2 (PCR) Detected A (Not Detectd) Disposition Clinical Impression: Delirium due to general medical condition, Dehydration, COVID-19 Disposition: ADMITTED IP TO THIS HOSP Condition: Stable Is patient prescribed a controlled substance at d/c from ED?: No Referrals: Milad Gottlieb MD [Primary Care Provider] - 1-2 days Time of Disposition: 00:00
[2023-04-26 21:40] LABS: ALT 16 U/L (4-49); AST 22 U/L (17-59); African American GFR (CKD) 87 (>60 ml/min/1.73 sqM); Albumin 3.9 g/dL (3.5-5.0); Alcohol <10 mg/dL; Alkaline Phosphatase 65 U/L (38-126); Anion Gap 11 mmol/L; Blood Urea Nitrogen 16 mg/dL (9-20); Calcium 8.9 mg/dL (8.4-10.2); Carbon Dioxide 20 mmol/L (22-30); Chloride 104 mmol/L (98-107); Glucose 129 mg/dL (74-99); Non-African American GFR(CKD) 76 (>60 ml/min/1.73 sqM); Potassium 3.8 mmol/L (3.5-5.1); Sodium 135 mmol/L (137-145); Total Bilirubin 0.9 mg/dL (0.2-1.3); Total Protein 6.9 g/dL (6.3-8.2)
--- NOTE | 2023-04-26 22:58 | XR ---
EXAMINATION TYPE: XR chest 2V DATE OF EXAM: 04/26/2023 9:46 PM CLINICAL INDICATION:Male, 87 years old with history of AMS; [facility] COMPARISON: 11/19/2022 TECHNIQUE: XR chest 2V Frontal and lateral views of the chest. FINDINGS: Lines/Tubes: EKG leads overlie the chest. No indwelling lines are seen. Lungs/Pleura: There is no evidence of pleural effusion, focal consolidation, or pneumothorax. Mild h aziness at the left lung base likely related to prominent pericardial fat. Pulmonary vascularity: Not increased. Heart/mediastinum: Cardiac mediastinal silhouette is stable. Mild/moderate cardiomegaly. Mildly tortu ous ectatic aorta. Sternotomy wires and mediastinal clips likely related to prior CABG. Musculoskeletal: No acute osseous pathology. Mild/moderate degenerative changes of the shoulders and spine. Other findings: None IMPRESSION: No acute cardiopulmonary disease/process. Cardiomegaly and postoperative changes.
[2023-04-26] MEDS: SODIUM CHLORIDE 0.9% 1,000 ML IV SCH (23:40)
[2023-04-26] MEDS ORDERED: NALOXONE 0.4 MG/ML 1 ML VIAL IV PRN (23:56)
[2023-04-27 00:14] LABS: Appearance,Urine Clear (Clear); Bilirubin,Urine Negative (Negative); Blood,Urine Negative (Negative); Color,Urine Colorless; Glucose,Urine (UA) Negative (Negative); Ketones,Urine Negative (Negative); Leukocyte Esterase,Urine Negative (Negative); Nitrite,Urine Negative (Negative); Protein,Urine Negative (Negative); Specific Gravity,Urine 1.003 (1.001-1.035); Urobilinogen,Urine <2.0 mg/dL (<2.0)
--- NOTE | 2023-04-27 02:56 | P.HPIM ---
History of Present Illness H&P Date: 04/27/23 Patient is a 87-year-old male with a PMH of mild dementia, hypertension and hyperlipidemia who was brought to the emergency room after EMS found the patient to be somewhat confused. The patient's family had activated EMS as he had been feeling ill over the past few days and not acting quite like himself. Patient reported having a mild cough during this time. He denied any additional completes. Denied experiencing chest discomfort, nausea, vomiting, abdominal pain, diarrhea. In the emergency room, the patient tested positive for COVID-19 with sodium 135, platelets 118, glucose 129. The patient had an SpO2 low of 94% in the emergency room on room air. Chest x-ray was unremarkable. EKG reveals sinus tachycardia with APCs at 10 6 bpm with T-wave inversion in leads V4 and V3 with Q waves in leads 3 and aVF. ED documentation reviewed and case discussed with ED provider. Review of systems: Pertinent positives and negatives as discussed in HPI, a complete review of systems was performed and all other systems are negative. Physical examination: Vital signs reviewed General: non toxic, no distress, appears at stated age, normal weight Derm: no unusual rashes/lesions, warm Head: atraumatic, normocephalic, symmetric Eyes: EOMI, no lid lag, anicteric sclera, pupils equal round reactive to light ENT: Nose and ears atraumatic Neck: No cervical lymphadenopathy, trachea midline, supple Mouth: no lip lesion, mucus membranes moist Cardiovascular: S1S2 reg, no murmur, positive dorsalis pedis pulse bilateral, no edema Lungs: Mild scattered rhonchi, no wheezing, no rales, no accessory muscle use Abdominal: soft, nontender to palpation, no guarding Ext: muscle strength 5 out of 5 in all 4 extremities grossly, no gross muscle atrophy, no contractures, Neuro: CN II-XI grossly intact, no gross focal neuro deficits Psych: Alert, oriented to person and place, not fully oriented to time Assessment: COVID-19 infection Altered mental status, likely due to above with baseline of dementia Thrombocytopenia, at baseline Chronic conditions: Hypertension, hyperlipidemia Imaging: Chest x-ray was unremarkable. EKG reveals sinus tachycardia with APCs at 10 6 bpm with T-wave inversion in leads V4 and V3 with Q waves in leads 3 and aVF. Data Review: In the emergency room, the patient tested positive for COVID-19 with sodium 135, platelets 118, glucose 129. The patient had an SpO2 low of 94% in the emergency room on room air. Plan: Gentle IV hydration Patient not requiring supplemental oxygen at this time PT consult upon patient's request for daily PT Monitor CBC Continue home medications DVT prophylaxis: Lovenox Subq The patient is admitted with an anticipated less than 2 midnight stay for evaluation of COVID CODE STATUS: Full Code Discussed with: Patient Anticipated discharge place: Home Past Medical History Past Medical History: Coronary Artery Disease (CAD), Chest Pain / Angina, GERD/Reflux, Hyperlipidemia, Hypertension Additional Past Medical History / Comment(s): hemorrhoids History of Any Multi-Drug Resistant Organisms: None Reported Past Surgical History: Coronary Bypass/CABG, Heart Catheterization, Heart Cathet erization With Stent, Tonsillectomy Additional Past Surgical History / Comment(s): CABG-QUADRUPLE 1997, 2007 HEART CATH, 07-19-17 heart cath w/ angioplsty/stents. CATARACT WITH LENS IMPLANT 2007 (TORIC-ACRYSOF) .colonoscopy Past Anesthesia/Blood Transfusion Reactions: No Reported Reaction Additional Past Anesthesia/Blood Transfusion Reaction / Comment(s): pt stated he received blood in past-no reaction to it. Date of Last Stent Placement:: 2014 Past Psychological History: Anxiety Additional Psychological History / Comment(s): pt lives alone in own home. He states he has caregivers/friends who help transport him and look after him. Smoking Status: Never smoker Past Alcohol Use History: None Reported Past Drug Use History: None Reported - Past Family History Mother Family Medical History: Pneumonia Additional Family Medical History / Comment(s): from pne Father Family Medical History: Pneumonia Additional Family Medical History / Comment(s): from pne Brother(s) Family Medical History: Cancer Additional Family Medical History / Comment(s): THROAT CA Medications and Allergies Home Medications Medication Instructions Recorded Confirmed Type Omeprazole [PriLOSEC] 20 mg PO DAILY 07/14/14 04/26/23 History Atorvastatin [Lipitor] 40 mg PO DAILY #30 tab 07/19/14 04/26/23 Rx Metoprolol Succinate [Toprol Xl] 50 mg PO DAILY 12/18/17 04/26/23 History Escitalopram [Lexapro] 10 mg PO DAILY tab 12/21/17 04/26/23 Rx Oxybutynin Chloride [oxyBUTYnin 15 mg PO DAILY 01/16/19 04/26/23 History chloride ER] Acetaminophen [Tylenol Arthritis] 650 mg PO Q8H PRN 11/19/22 04/26/23 History Ibuprofen [Motrin Ib] 600 mg PO Q8H PRN 11/19/22 04/26/23 History amLODIPine [Norvasc] 5 mg PO DAILY 11/19/22 04/26/23 History Allergies Allergy/AdvReac Type Severity Reaction Status Date / Time No Known Allergies Allergy Verified 04/26/23 21:15 Physical Exam Vitals: Vital Signs Temp Pulse Pulse Resp BP BP Pulse Ox 04/27/23 01:48 97.4 F L 101 H 15 158/87 94 L 04/27/23 00:00 111 H 16 149/84 95 04/26/23 22:18 105 H 18 106/72 95 04/26/23 21:05 98.4 F 109 H 18 131/85 96 Intake and Output 04/26/23 04/26/23 04/27/23 14:59 22:59 06:59 Other: Voiding Method Urinal Diaper Weight 86.183 kg 86.183 kg Results CBC & Chem 7: 04/26/23 21:23 04/26/23 21:23 Labs: Abnormal Lab Results - Last 24 Hours (Table) 04/26/23 04/26/23 04/26/23 Range/Units 21:23 21:23 21:23 Plt Count 118 L (150-450) k/uL Lymphocytes # 0.6 L (1.0-4.8) k/uL Sodium 135 L (137-145) mmol/L Carbon Dioxide 20 L (22-30) mmol/L Glucose 129 H (74-99) mg/dL SARS-CoV-2 (PCR) Detected A (Not Detectd) Thrombosis Risk Factor Assmnt - Choose All That Apply Any of the Below Risk Factors Present?: Yes Each Factor Represents 1 point: Obesity (BMI >25) Other Risk Factors: Yes Each Risk Factor Represents 3 Points: Age 75 years or older Thrombosis Risk Factor Assessment Total Risk Factor Score: 4 Thrombosis Risk Factor Assessment Level: Moderate Risk
[2023-04-27] MEDS: PANTOPRAZOLE 40 MG TABLET PO SCH (05:50)
[2023-04-27 06:59] LABS: HCT 47.3 % (39.0-53.0); MCH 28.8 pg (25.0-35.0); MCHC 31.7 g/dL (31.0-37.0); MCV 90.8 fL (80.0-100.0); Mean Platelet Volume 9.1; Platelet Count 120 k/uL (150-450); RBC 5.21 m/uL (4.30-5.90); RDW 14.5 % (11.5-15.5); WBC 7.2 k/uL (3.8-10.6)
[2023-04-27 07:05] LABS: African American GFR (CKD) >90 (>60 ml/min/1.73 sqM); Anion Gap 8 mmol/L; Blood Urea Nitrogen 14 mg/dL (9-20); Calcium 8.4 mg/dL (8.4-10.2); Carbon Dioxide 23 mmol/L (22-30); Chloride 107 mmol/L (98-107); Glucose 97 mg/dL (74-99); Non-African American GFR(CKD) 78 (>60 ml/min/1.73 sqM); Potassium 3.8 mmol/L (3.5-5.1); Sodium 138 mmol/L (137-145)
[2023-04-27] MEDS: OXYBUTYNIN 15 MG TAB.ER.24 PO SCH (08:07)
[2023-04-27] MEDS: ENOXAPARIN 40 MG/0.4 ML SYRINGE SQ SCH (08:08)
[2023-04-27] MEDS: METOPROLOL SUCCINATE (ER) 50 MG TAB.ER.24H PO SCH (08:08)
[2023-04-27] MEDS: ESCITALOPRAM 10 MG TAB PO SCH (08:08)
[2023-04-27] MEDS: amLODIPine 5 MG TAB PO SCH (08:08)
[2023-04-27] MEDS: ATORVASTATIN 40 MG TAB PO SCH (08:08)
[2023-04-27] MEDS: SODIUM CHLORIDE 0.9% 1,000 ML IV SCH (12:27)
[2023-04-27] MEDS: ACETAMINOPHEN TAB 325 MG TAB PO PRN (17:34)
[2023-04-27] MEDS: CALCIUM CARBONATE 500 MG CHEWABLE PO PRN (20:37)
[2023-04-28] MEDS: ACETAMINOPHEN TAB 325 MG TAB PO PRN (05:20)
[2023-04-28] MEDS: PANTOPRAZOLE 40 MG TABLET PO SCH (05:20)
[2023-04-28] MEDS: CALCIUM CARBONATE 500 MG CHEWABLE PO PRN (05:20)
[2023-04-28] MEDS: SODIUM CHLORIDE 0.9% 1,000 ML IV SCH ×2 (06:08→17:15)
[2023-04-28 08:47] LABS: Basophils # (A) 0.01 X 10*3/uL (0.00-0.10); Basophils % (A) 0.1 %; Eosinophils # (A) 0.03 X 10*3/uL (0.04-0.35); Eosinophils % (A) 0.4 %; HGB 14.8 g/dL (13.0-17.0); Lymphocytes # (A) 0.59 X 10*3/uL (0.90-5.00); Lymphocytes % (A) 6.9 %; MCH 28.7 pg (27.0-32.0); MCHC 32.9 g/dL (32.0-37.0); MCV 87.2 FL (80.0-97.0); Mean Platelet Volume 12.1 FL (9.5-12.2); Monocytes # (A) 0.75 X 10*3/uL (0.20-1.00); Monocytes % (A) 8.8 %; NRBC Per 100 WBC 0 X 10*3/uL (0.00-0.01); Neutrophils # (A) 7.07 X 10*3/uL (1.80-7.70); Neutrophils % (A) 83.3 %; Platelet Count 123 X 10*3/uL (140-440); RBC 5.16 X 10*6/uL (4.40-5.60); RDW 14.9 % (11.5-14.5); WBC 8.49 X 10*3/uL (4.50-10.00)
[2023-04-28 09:03] LABS: BUN/Creat Ratio 12.22 Ratio (12.00-20.00); Calcium 8.4 mg/dL (8.7-10.3); Carbon Dioxide 18.8 mmol/L (21.6-31.8); Chloride 105 mmol/L (96-109); Glucose 124 mg/dL (70-110); Magnesium 2.1 mg/dL (1.5-2.4); Potassium 3.8 mmol/L (3.5-5.5); Sodium 136 mmol/L (135-145)
[2023-04-28] MEDS: ATORVASTATIN 40 MG TAB PO SCH (10:13)
[2023-04-28] MEDS: OXYBUTYNIN 15 MG TAB.ER.24 PO SCH (10:13)
[2023-04-28] MEDS: ENOXAPARIN 40 MG/0.4 ML SYRINGE SQ SCH (10:13)
[2023-04-28] MEDS: amLODIPine 5 MG TAB PO SCH (10:13)
[2023-04-28] MEDS: ESCITALOPRAM 10 MG TAB PO SCH (10:13)
[2023-04-28] MEDS: METOPROLOL SUCCINATE (ER) 50 MG TAB.ER.24H PO SCH (10:13)
--- NOTE | 2023-04-28 14:15 | P.PN ---
Subjective Progress Note Date: 04/28/23 Hospital Course: 87-year-old male with a PMH of mild dementia, hypertension and hyperlipidemia who was brought to the emergency room after EMS found the patient to be somewhat confused. In the emergency room, the patient tested positive for COVID-19 with sodium 135, platelets 118, glucose 129. The patient had an SpO2 low of 94% in the emergency room on room air. Chest x-ray was unremarkable. EKG reveals sinus tachycardia with APCs at 10 6 bpm with T-wave inversion in leads V4 and V3 with Q waves in leads 3 and aVF. Patient admitted for acute encephalopathy in the setting of baseline dementia, COVID-19 infection. Strep assay. Also has acute kidney injury. Subjective: Seen and examined at bedside. No acute events overnight. Remains confused Pertinent positives and negatives as discussed above, a complete review of systems was performed and all other systems are negative. Vitals Signs Reviewed. General: nontoxic, no distress, appears at stated age Derm: warm, dry Head: atraumatic, normocephalic, symmetric Eyes: EOMI, no lid lag, anicteric sclera Mouth: no lip lesion, mucus membranes moist Cardiovascular: S1S2 reg, no murmur Lungs: CTA bilateral, no rhonchi, no rales , no accessory muscle use Abdominal: soft, nontender to palpation, no guarding, no appreciable organomegaly Ext: no gross muscle atrophy, no edema, no contractures Neuro: CN II-XI grossly intact, no focal neuro deficits Psych: Alert, oriented 1, appropriate affect , currently pulling on lines Data Reviewed Today: Pertinent Labs: WBC 8.49, hemoglobin 14.8, platelet 123, creatinine 1.8, magnesium 2.1 Imaging: No new imaging Assessment and Plan: Active: Acute metabolic encephalopathy History of dementia COVID-19 infection Acute kidney injury -Continue delirium precautions, patient remains on room air -He will likely require placement -Continue normal saline at 75 mL an hour -Bladder scan and renal ultrasound ordered -Repeat BMP tomorrow Chronic: Thrombocytopenia Hypertension Dyslipidemia DVT ppx: Subcu heparin Code status: Full code Anticipated discharge place: Pending clinical course Anticipated discharge time: Pending clinical course Objective - Vital Signs Vital signs: Vital Signs Temp 97.8 F 04/28/23 07:00 Pulse 86 04/28/23 07:00 Resp 18 04/28/23 07:00 BP 161/77 04/28/23 07:00 Pulse Ox 95 04/28/23 07:00 FiO2 Intake & Output 04/27/23 04/28/23 04/28/23 18:59 06:59 18:59 Intake Total 1989 118 Output Total 650 Balance 1989 Intake: Intake, IV Titration 900 Amount Sodium Chloride 0.9% 1, 900 000 ml @ 75 mls/hr IV . [id number] HUNTER Rx#:[id number] Oral 1090 118 Output: Urine 650 Other: Voiding Method Diaper Diaper External Catheter # Voids 2 1 - Labs CBC & Chem 7: 04/28/23 05:49 04/28/23 05:49 Labs: Abnormal Lab Results - Last 24 Hours (Table) 04/28/23 04/28/23 Range/Units 05:49 05:49 RDW 14.9 H (11.5-14.5) % Plt Count 123 L (140-440) X 10*3/uL Lymphocytes # 0.59 L (0.90-5.00) X 10*3/uL Eosinophils # 0.03 L (0.04-0.35) X 10*3/uL Carbon Dioxide 18.8 L (21.6-31.8) mmol/L Anion Gap 12.20 H (4.00-12.00) mmol/L Creatinine 1.8 H (0.6-1.5) mg/dL Est GFR (CKD-EPI) 36 L (>=60) Glucose 124 H (70-110) mg/dL Calcium 8.4 L (8.7-10.3) mg/dL
[2023-04-28] MEDS: HEPARIN SODIUM,PORCINE 5,000 UNIT/ML 1 ML VIAL SQ SCH ×2 (16:19→23:05)
[2023-04-28] MEDS ORDERED: HALOPERIDOL LACTATE 5 MG/ML 1 ML VIAL IM STA (16:23)
[2023-04-28] MEDS: QUEtiapine 25 MG TAB PO SCH (20:12)
[2023-04-29] MEDS: QUEtiapine 25 MG TAB PO ONE ×2 (03:53→23:09)
[2023-04-29] MEDS: SODIUM CHLORIDE 0.9% 1,000 ML IV SCH ×2 (03:54→19:28)
[2023-04-29] MEDS: METOPROLOL SUCCINATE (ER) 50 MG TAB.ER.24H PO SCH (11:17)
[2023-04-29] MEDS: PANTOPRAZOLE 40 MG TABLET PO SCH (11:18)
[2023-04-29] MEDS: TAMSULOSIN 0.4 MG CAP.ER.24H PO SCH (11:18)
[2023-04-29] MEDS: ATORVASTATIN 40 MG TAB PO SCH (11:18)
[2023-04-29] MEDS: ESCITALOPRAM 10 MG TAB PO SCH (11:18)
[2023-04-29] MEDS: OXYBUTYNIN 15 MG TAB.ER.24 PO SCH (11:18)
[2023-04-29] MEDS: amLODIPine 5 MG TAB PO SCH (11:18)
[2023-04-29 11:33] LABS: African American GFR (CKD) >90 (>60 ml/min/1.73 sqM); Anion Gap 7 mmol/L; Blood Urea Nitrogen 13 mg/dL (9-20); Calcium 7.7 mg/dL (8.4-10.2); Carbon Dioxide 20 mmol/L (22-30); Chloride 114 mmol/L (98-107); Glucose 99 mg/dL (74-99); Magnesium 2.1 mg/dL (1.6-2.3); Non-African American GFR(CKD) 81 (>60 ml/min/1.73 sqM); Potassium 3.4 mmol/L (3.5-5.1); Sodium 141 mmol/L (137-145)
[2023-04-29] MEDS ORDERED: POTASSIUM CHLORIDE ER 20 MEQ TAB.ER PO STA (12:30)
--- NOTE | 2023-04-29 12:43 | P.PN ---
Subjective Progress Note Date: 04/29/23 Hospital Course: 87-year-old male with a PMH of mild dementia, hypertension and hyperlipidemia who was brought to the emergency room after EMS found the patient to be somewhat confused. In the emergency room, the patient tested positive for COVID-19 with sodium 135, platelets 118, glucose 129. The patient had an SpO2 low of 94% in the emergency room on room air. Chest x-ray was unremarkable. EKG reveals sinus tachycardia with APCs at 10 6 bpm with T-wave inversion in leads V4 and V3 with Q waves in leads 3 and aVF. Patient admitted for acute encephalopathy in the setting of baseline dementia, COVID-19 infection. Also has acute kidney injury, was post renal. Has urinary retention. Subjective: Seen and examined at bedside. Remains confused and agitated. Still having u rinary retention, had straight cath multiple times. Pertinent positives and negatives as discussed above, a complete review of systems was performed and all other systems are negative. Vitals Signs Reviewed. General: nontoxic, no distress, appears at stated age Derm: warm, dry Head: atraumatic, normocephalic, symmetric Eyes: EOMI, no lid lag, anicteric sclera Mouth: no lip lesion, mucus membranes moist Cardiovascular: S1S2 reg, no murmur Lungs: CTA bilateral, no rhonchi, no rales , no accessory muscle use Abdominal: soft, nontender to palpation, no guarding, no appreciable organomegaly Ext: no gross muscle atrophy, no edema, no contractures Neuro: CN II-XI grossly intact, no focal neuro deficits Psych: Alert, oriented 1, appropriate affect , currently pulling on lines Data Reviewed Today: Pertinent Labs: Sodium 141, potassium 3.4, bicarb 20, creatinine 0.79, magnesium 2.1 Imaging: Renal ultrasound report pending Assessment and Plan: Active: Acute metabolic encephalopathy History of dementia COVID-19 infection Acute kidney injury, resolved Acute urinary retention Hypokalemia -Continue delirium precautions, patient remains on room air -On quetiapine 25 mg nightly -He will likely require placement -Continue normal saline at 75 mL an hour -Renal ultrasound pending -Place Cuellar catheter if Patient allows -20 mEq oral potassium given -Repeat BMP and magnesium tomorrow Chronic: Thrombocytopenia Hypertension Dyslipidemia DVT ppx: Subcu heparin Code status: Full code Anticipated discharge place: Pending clinical course Anticipated discharge time: Pending clinical course Objective - Vital Signs Vital signs: Vital Signs Temp 97.7 F 04/29/23 11:13 Pulse 88 04/29/23 11:13 Resp 18 04/29/23 11:13 BP 168/75 04/29/23 11:13 Pulse Ox 96 04/29/23 11:13 FiO2 Intake & Output 04/28/23 04/29/23 04/29/23 18:59 06:59 18:59 Intake Total 236 Output Total 3791 2200 957 Balance -4311 -0376 -671 Intake: Oral 236 Output: Urine 2750 2200 Straight 1050 1100 Post Void Residual 1041 957 Other: Voiding Method External Catheter # Voids 0 - Labs CBC & Chem 7: 04/28/23 05:49 04/29/23 11:07 Labs: Abnormal Lab Results - Last 24 Hours (Table) 04/29/23 Range/Units 11:07 Potassium 3.4 L (3.5-5.1) mmol/L Chloride 114 H (98-107) mmol/L Carbon Dioxide 20 L (22-30) mmol/L Calcium 7.7 L (8.4-10.2) mg/dL
--- NOTE | 2023-04-29 12:52 | US ---
EXAMINATION TYPE: US renals and bladder DATE OF EXAM: 04/29/2023 COMPARISON: NONE CLINICAL INDICATION: Male, 87 years old with history of jose; Patient alert and orientated to self but unable to follow instructions. EXAM MEASUREMENTS: Right Kidney: 11.2 x 5.7 x 3.9 cm - multiple cysts, largest = 2.3 x 2.9 x 1.9 cm Left Kidney: 12.5 x 6.5 x 5.7 cm; cyst = 3.6 x 3.9 c 4.0 cm Bladder: wnl Bilateral Jets seen: Yes Normal Post Void Residual: unable to assess - patient not able to void, nurse to catheterize patien t There is no evidence for hydronephrosis at this point in time. No nephrolithiasis is seen. No rehan s are identified. The urinary bladder is anechoic. Bilateral ureteral jets are seen. Difficult exam - patient has dementia and is unable to follow instructions to hold breath. IMPRESSION: 1. Difficult exam due to patient unable to follow instructions. No evidence for obstructive uropathy . Cortical medullary differentiation maintained. 2. Bilateral renal cysts.
[2023-04-29] MEDS: HEPARIN SODIUM,PORCINE 5,000 UNIT/ML 1 ML VIAL SQ SCH ×3 (15:52→23:09)
[2023-04-29] MEDS: CALCIUM CARBONATE 500 MG CHEWABLE PO PRN (20:33)
[2023-04-29] MEDS: QUEtiapine 25 MG TAB PO SCH (22:26)
[2023-04-30] MEDS: PANTOPRAZOLE 40 MG TABLET PO SCH (06:26)
[2023-04-30] MEDS: SODIUM CHLORIDE 0.9% 1,000 ML IV SCH ×2 (06:26→15:44)
[2023-04-30] MEDS: METOPROLOL SUCCINATE (ER) 50 MG TAB.ER.24H PO SCH (08:53)
[2023-04-30] MEDS: ESCITALOPRAM 10 MG TAB PO SCH (08:53)
[2023-04-30] MEDS: amLODIPine 5 MG TAB PO SCH (08:53)
[2023-04-30] MEDS: TAMSULOSIN 0.4 MG CAP.ER.24H PO SCH (08:53)
[2023-04-30] MEDS: OXYBUTYNIN 15 MG TAB.ER.24 PO SCH (08:53)
[2023-04-30] MEDS: HEPARIN SODIUM,PORCINE 5,000 UNIT/ML 1 ML VIAL SQ SCH ×3 (08:54→23:16)
[2023-04-30] MEDS: ATORVASTATIN 40 MG TAB PO SCH (08:54)
[2023-04-30 09:01] LABS: BUN/Creat Ratio 13.33 Ratio (12.00-20.00); Carbon Dioxide 21.2 mmol/L (21.6-31.8); Chloride 110 mmol/L (96-109); Glucose 94 mg/dL (70-110); Potassium 3.5 mmol/L (3.5-5.5); Sodium 142 mmol/L (135-145)
--- NOTE | 2023-04-30 11:06 | P.PN ---
Subjective Progress Note Date: 04/30/23 Hospital Course: 87-year-old male with a PMH of mild dementia, hypertension and hyperlipidemia who was brought to the emergency room after EMS found the patient to be somewhat confused. In the emergency room, the patient tested positive for COVID-19 with sodium 135, platelets 118, glucose 129. The patient had an SpO2 low of 94% in the emergency room on room air. Chest x-ray was unremarkable. EKG reveals sinus tachycardia with APCs at 10 6 bpm with T-wave inversion in leads V4 and V3 with Q waves in leads 3 and aVF. Patient admitted for acute encephalopathy in the setting of baseline dementia, COVID-19 infection. Also has acute kidney injury, was post renal, resolved. Has urinary retention, status post Cuellar catheter. Encephalopathy improving Subjective: Seen and examined at bedside. Sitter at bedside. More cooperative, less combative. Pertinent positives and negatives as discussed above, a complete review of systems was performed and all other systems are negative. Vitals Signs Reviewed. General: nontoxic, no distress, appears at stated age Derm: warm, dry Head: atraumatic, normocephalic, symmetric Eyes: EOMI, no lid lag, anicteric sclera Mouth: no lip lesion, mucus membranes moist Cardiovascular: S1S2 reg, no murmur Lungs: CTA bilateral, no rhonchi, no rales , no accessory muscle use Abdominal: soft, nontender to palpation, no guarding, no appreciable o rganomegaly Ext: no gross muscle atrophy, no edema, no contractures Neuro: CN II-XI grossly intact, no focal neuro deficits Psych: Alert, oriented 1, appropriate affect , currently pulling on lines Data Reviewed Today: Pertinent Labs: Potassium 2.5, creatinine 0.9 Imaging: No new imaging Assessment and Plan: Active: Acute metabolic encephalopathy, resolving History of dementia COVID-19 infection, asymptomatic Acute kidney injury, resolved Acute urinary retention, status post Cuellar catheter Hypokalemia, resolved -Continue delirium precautions, patient remains on room air -On quetiapine 25 mg nightly -Patient will require placement -Continue normal saline at 75 mL an hour -Continue tamsulosin 0.4 mg daily Chronic: Thrombocytopenia Hypertension Dyslipidemia DVT ppx: Subcu heparin Code status: Full code Anticipated discharge place: Pending clinical course Anticipated discharge time: Pending clinical course Objective - Vital Signs Vital signs: Vital Signs Temp 98.6 F 04/30/23 08:00 Pulse 91 04/30/23 08:00 Resp 18 04/30/23 08:00 BP 159/74 04/30/23 08:00 Pulse Ox 94 L 04/30/23 08:00 FiO2 Intake & Output 04/29/23 04/30/23 04/30/23 18:59 06:59 18:59 Intake Total 0 Output Total 2857 600 400 Balance -2857 -600 -400 Intake: Oral 0 Output: Urine 1900 600 400 Straight 800 Post Void Residual 957 Other: Voiding Method Indwelling Catheter Indwelling Catheter # Bowel Movements 1 - Labs CBC & Chem 7: 04/28/23 05:49 04/30/23 06:00 Labs: Abnormal Lab Results - Last 24 Hours (Table) 04/29/23 04/30/23 Range/Units 11:07 06:00 Potassium 3.4 L (3.5-5.1) mmol/L Chloride 114 H 110 H (98-107) mmol/L Carbon Dioxide 20 L 21.2 L (22-30) mmol/L Calcium 7.7 L 8.0 L (8.4-10.2) mg/dL
[2023-04-30] MEDS: ACETAMINOPHEN TAB 325 MG TAB PO PRN (16:45)
[2023-04-30] MEDS: QUEtiapine 25 MG TAB PO SCH (22:18)
[2023-05-01] MEDS: PANTOPRAZOLE 40 MG TABLET PO SCH (05:43)
[2023-05-01] MEDS: HEPARIN SODIUM,PORCINE 5,000 UNIT/ML 1 ML VIAL SQ SCH ×3 (10:27→22:54)
[2023-05-01] MEDS: ATORVASTATIN 40 MG TAB PO SCH (10:27)
[2023-05-01] MEDS: ESCITALOPRAM 10 MG TAB PO SCH (10:27)
[2023-05-01] MEDS: METOPROLOL SUCCINATE (ER) 50 MG TAB.ER.24H PO SCH (10:27)
[2023-05-01] MEDS: amLODIPine 5 MG TAB PO SCH (10:27)
[2023-05-01] MEDS: OXYBUTYNIN 15 MG TAB.ER.24 PO SCH (10:27)
[2023-05-01] MEDS: TAMSULOSIN 0.4 MG CAP.ER.24H PO SCH (10:27)
--- NOTE | 2023-05-01 12:04 | P.PN ---
Subjective Progress Note Date: 05/01/23 Hospital Course: 87-year-old male with a PMH of mild dementia, hypertension and hyperlipidemia who was brought to the emergency room after EMS found the patient to be somewhat confused. In the emergency room, the patient tested positive for COVID-19 with sodium 135, platelets 118, glucose 129. The patient had an SpO2 low of 94% in the emergency room on room air. Chest x-ray was unremarkable. EKG reveals sinus tachycardia with APCs at 10 6 bpm with T-wave inversion in leads V4 and V3 with Q waves in leads 3 and aVF. Patient admitted for acute encephalopathy in the setting of baseline dementia, COVID-19 infection. Also has acute kidney injury, was post renal, resolved. Has urinary retention, status post Cuellar catheter. Encephalopathy improving. Pending placement. Subjective: Seen and examined at bedside. No acute events overnight. More cooperative, less combative. Pertinent positives and negatives as discussed above, a complete review of systems was performed and all other systems are negative. Vitals Signs Reviewed. General: nontoxic, no distress, appears at stated age Derm: warm, dry Head: atraumatic, normocephalic, symmetric Eyes: EOMI, no lid lag, anicteric sclera Mouth: no lip lesion, mucus membranes moist Cardiovascular: S1S2 reg, no murmur Lungs: CTA bilateral, no rhonchi, no rales , no accessory muscle use Abdominal: soft, nontender to palpation, no guarding, no appreciable organomegaly Ext: no gross muscle atrophy, no edema, no contractures Neuro: CN II-XI grossly intact, no focal neuro deficits Psych: Alert, oriented 1, appropriate affect , currently pulling on lines Data Reviewed Today: Pertinent Labs: No new labs Imaging: No new imaging Assessment and Plan: Active: Acute metabolic encephalopathy, resolving History of dementia COVID-19 infection, asymptomatic Acute kidney injury, resolved Acute urinary retention, status post Cuellar catheter Hypokalemia, resolved -Continue delirium precautions, patient remains on room air -On quetiapine 25 mg nightly -Patient will require placement -Continue tamsulosin 0.4 mg daily Chronic: Thrombocytopenia Hypertension Dyslipidemia DVT ppx: Subcu heparin Code status: Full code Anticipated discharge place: Pending clinical course Anticipated discharge time: Pending clinical course Objective - Vital Signs Vital signs: Vital Signs Temp 98.9 F 11/23/23 07:32 Pulse 80 05/01/23 08:00 Resp 16 05/01/23 08:00 BP 143/71 05/01/23 07:32 Pulse Ox 92 L 05/01/23 07:32 FiO2 Intake & Output 04/30/23 05/01/23 05/01/23 18:59 06:59 18:59 Intake Total 90 120 Output Total 800 2000 Balance -014 -9675 Intake: Oral 90 120 Output: Urine 800 2000 Other: Voiding Method Indwelling Catheter Indwelling Catheter Indwelling Catheter # Bowel Movements 1 - Labs CBC & Chem 7: 04/28/23 05:49 04/30/23 06:00
[2023-05-01] MEDS: SODIUM CHLORIDE 0.9% 1,000 ML IV SCH (13:18)
[2023-05-01 20:16] VITALS: RESP 16
[2023-05-01] MEDS: QUEtiapine 25 MG TAB PO SCH (20:55)
[2023-05-02 07:34] VITALS: BP 140/68; PULSE 80; TEMP 97.2
--- NOTE | 2023-05-02 10:32 | P.DS ---
Providers Date of admission: 04/28/23 13:35 Expected date of discharge: 05/02/23 Attending physician: Benito Mcnulty MD Primary care physician: Milad Gottlieb MD Hospital Course: Discharge Diagnosis: Acute metabolic encephalopathy History of dementia COVID-19 infection, asymptomatic Acute kidney injury Acute urinary retention, status post Cuellar catheter Hypokalemia Hospital Course: 87-year-old male with a PMH of mild dementia, hypertension and hyperlipidemia who was brought to the emergency room after EMS found the patient to be somewhat confused. In the emergency room, the patient tested positive for COVID-19 with sodium 135, platelets 118, glucose 129. The patient had an SpO2 low of 94% in the emergency room on room air. Chest x-ray was unremarkable. EKG reveals sinus tachycardia with APCs at 10 6 bpm with T-wave inversion in leads V4 and V3 with Q waves in leads 3 and aVF. Patient admitted for acute encephalopathy in the setting of baseline dementia, COVID-19 infection. Also had acute kidney injury, was post renal, resolved. Has urinary retention, status post Cuellar catheter. Encephalopathy improving. Patient being transferred to nursing facility. Patient seen and examined at bedside. Vital signs reviewed and stable. General: nontoxic, no distress, appears at stated age, Derm: warm, dry Head: atraumatic, normocephalic, symmetric Eyes: EOMI, no lid lag, anicteric sclera Mouth: no lip lesion, mucus membranes moist Cardiovascular: S1S2 reg, no murmur Lungs: CTA bilateral, no rhonchi, no rales , no accessory muscle use Abdominal: soft, nontender to palpation, no guarding, no appreciable organome angelita Ext: no gross muscle atrophy, no edema, no contractures Neuro: CN II-XI grossly intact, no focal neuro deficits Psych: Alert, oriented 2, appropriate affect A total of 33 minutes of time were spent preparing this complex discharge summary. Patient was discharged on 05/02/23 at 10:20. Patient Condition at Discharge: Stable Plan - Discharge Summary New Discharge Prescriptions: New Tamsulosin [Flomax] 0.4 mg PO PC-BRKFST #0 cap QUEtiapine [SEROquel] 25 mg PO HS tab Calcium Carbonate [Tums] 500 mg PO QID PRN tab PRN Reason: Heartburn Continue Omeprazole [PriLOSEC] 20 mg PO DAILY Atorvastatin [Lipitor] 40 mg PO DAILY #30 tab Metoprolol Succinate [Toprol Xl] 50 mg PO DAILY Escitalopram [Lexapro] 10 mg PO DAILY tab amLODIPine [Norvasc] 5 mg PO DAILY Acetaminophen [Tylenol Arthritis] 650 mg PO Q8H PRN PRN Reason: Fever And/ Or Pain Discontinued Oxybutynin Chloride [oxyBUTYnin chloride ER] 15 mg PO DAILY Ibuprofen [Motrin Ib] 600 mg PO Q8H PRN PRN Reason: Fever And/ Or Pain Discharge Medication List Omeprazole [PriLOSEC] 20 mg PO DAILY 07/14/14 [History] Atorvastatin [Lipitor] 40 mg PO DAILY #30 tab 07/19/14 [Rx] Metoprolol Succinate [Toprol Xl] 50 mg PO DAILY 12/18/17 [History] Escitalopram [Lexapro] 10 mg PO DAILY tab 12/21/17 [Rx] Acetaminophen [Tylenol Arthritis] 650 mg PO Q8H PRN 11/19/22 [History] amLODIPine [Norvasc] 5 mg PO DAILY 11/19/22 [History] Calcium Carbonate [Tums] 500 mg PO QID PRN tab 05/02/23 [Rx] QUEtiapine [SEROquel] 25 mg PO HS tab 05/02/23 [Rx] Tamsulosin [Flomax] 0.4 mg PO PC-BRKFST #0 cap 05/02/23 [Rx] Follow up Appointment(s)/Referral(s): Keanu Carranza MD [STAFF PHYSICIAN] - 1 Week Milad Gottlieb MD [Primary Care Provider] - 1-2 days Patient Instructions/Handouts: Urinary Retention in Men (ED), Encephalopathy (DC) Activity/Diet/Wound Care/Special Instructions: Please follow up with PCP. Try voiding trial at nursing facility, if unable to void, he'll need to see urology for taking out indwelling Cuellar catheter. Discharge Disposition: TRANSFER TO SNF/ECF
[2023-05-02] MEDS: ATORVASTATIN 40 MG TAB PO SCH (10:36)
[2023-05-02] MEDS: METOPROLOL SUCCINATE (ER) 50 MG TAB.ER.24H PO SCH (10:37)
[2023-05-02] MEDS: TAMSULOSIN 0.4 MG CAP.ER.24H PO SCH (10:37)
[2023-05-02] MEDS: PANTOPRAZOLE 40 MG TABLET PO SCH (10:37)
[2023-05-02] MEDS: ESCITALOPRAM 10 MG TAB PO SCH (10:37)
[2023-05-02] MEDS: amLODIPine 5 MG TAB PO SCH (10:37)
[2023-05-02] MEDS: OXYBUTYNIN 15 MG TAB.ER.24 PO SCH (10:37)
[2023-05-02] MEDS: HEPARIN SODIUM,PORCINE 5,000 UNIT/ML 1 ML VIAL SQ SCH (10:37)
== END 2023-05-02 12:20 | DRG 177 ==
LOC: EC 21:03 → 6NMEDSUR 23:56 → OBSVTOIN 04-28 13:35
PROVIDERS: ADMIT Internal Medicine; ATTEND Internal Medicine
DX: U07.1 COVID-19 (principal); G93.41 Metabolic encephalopathy; F03.A4 Unspecified dementia, mild, with anxiety; N17.9 Acute kidney failure, unspecified; F33.9 Major depressive disorder, recurrent, unspecified; F05 Delirium due to known physiological condition; D69.6 Thrombocytopenia, unspecified; I10 Essential (primary) hypertension; E78.5 Hyperlipidemia, unspecified; E87.6 Hypokalemia; E86.0 Dehydration; R00.0 Tachycardia, unspecified; Z79.899 Other long term (current) drug therapy; Z95.1 Presence of aortocoronary bypass graft; Z98.42 Cataract extraction status, left eye; Z98.41 Cataract extraction status, right eye; Z96.1 Presence of intraocular lens
CPT/HCPCS: 36415; 71046; 76770; 80048; 80053; 80320; 81003; 83735; 85025; 85027; 87636; 93005; 96360; 96361; 99285